=== PATIENT | female | born 1945 | race Caucasian/White ===

== ENCOUNTER 2020-04-27 11:15 | Outpatient (RCR) | payer MEDICARE, OTHER, SELFPAY | END 2020-06-14 16:27 | disposition home or self-care (01) | LOC: HO.WCC 11:15 | PROVIDERS: Visit Provider Surgery | DX: S81.811A Laceration without foreign body, right lower leg, initial encounter (principal); Z79.2 Long term (current) use of antibiotics | CPT/HCPCS: 11042; 17250; 97597; 99212 ==

== ENCOUNTER 2020-08-07 21:11 | Inpatient (IN) | payer MEDICARE, OTHER, SELFPAY ==
[2020-08-08] VITALS (12 sets, daily range): BP systolic 118–140; BP diastolic 59–78; PULSE 77–98; RESP 15–24; TEMP 36.2–37.1; O2SAT 95–99; BMI 19.0
--- NOTE | 2020-08-08 00:09 | XR_ITS ---
EXAMINATION: XR CHEST CLINICAL INFORMATION: Edema COMPARISON: Chest x-ray 12/31/2019, 12/15/2018 TECHNIQUE: Frontal portable view of the chest was obtained. 12:41 AM FINDINGS: Heart size is normal. Cardiac and mediastinal contours are normal. There are calcifications of aorta. There is chronic mild prominent of interstitial lung markings unchanged since prior chest x-ray. No focal dense consolidation. There is no pleural effusion. There is no pneumothorax. Multilevel degenerative spondylosis spine. There is degenerative changes of both glenohumeral joints. There are surgical clips in the right upper quadrant of the abdomen. XR/XR chest 1V IMPRESSION: No acute abnormality of chest. Chronic mild prominent interstitial lung markings unchanged since prior studies.
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
[2020-08-08 00:42] LABS: Basophils Percent Auto 0.8 % (0-2); Eosinophils Absolute Auto 0.1 X10*3/uL (0.0-0.4); Eosinophils Percent Auto 1.2 % (0-4); Hematocrit 34.3 % (37-47); Hemoglobin 10.9 g/dl (12.0-16.0); Imm Gran Abs Auto 0.04 X10*3/uL (0.00-0.03); Imm Gran Pct Auto 0.8 % (0.0-0.4); Lymphocytes Absolute Auto 0.8 X10*3/uL (1.2-4.9); Lymphocytes Percent Auto 15.3 % (20-40); MANUAL DIFF FLAG NO; Mean Corpuscular HGB Conc 31.8 g/dl (31.0-35.0); Mean Corpuscular Hemoglobin 29.9 pg (27.0-33.0); Mean Platelet Volume 9.5 fL (9.4-12.3); Monocytes Absolute Auto 0.3 X10*3/uL (0.1-1.2); Neutrophils Absolute Auto 3.8 X10*3/uL (2.0-8.3); Neutrophils Percent Auto 75.9 % (45-73); Platelet Count 177 X10*3/uL (160-400); Red Blood Count 3.65 X10*6/uL (4.20-5.50); Red Cell Distribution Width 15.5 % (11.0-16.0)
[2020-08-08 00:44] LABS: Glucose Urine UA NEG (NEG); Leukocyte Esterase Urine NEG (NEG); Nitrite Urine NEG (NEG); PH 5.5 (5.0-8.0); Specific Gravity - Urine 1.025 (1.005-1.025); Urine Blood NEG (NEG); Urine Ketones NEG (NEG); Urine Protein 2+ MG/DL (NEG-TRACE)
[2020-08-08 00:45] LABS: Appearance Urine HAZY; Color Urine AMBER
[2020-08-08 00:51] LABS: Bacteria Urine TRACE /LPF; Mucus Urine TRACE /LPF; RBC Urine 0-2 /HPF (0); Squamous Epithelial Cell Urine 3+ /LPF; WBC Urine 0-2 /HPF (0-4)
[2020-08-08 01:09] LABS: Anion Gap 12 (12-20); Blood Urea Nitrogen 15 mg/dL (9-16); Calcium 7.4 mg/dL (8.4-10.2); Carbon Dioxide 25 mmol/L (22-29); Chloride 97 mmol/L (96-108); Creatinine Clr Calc Pharmacy 60.3; Estimated Glomerular Filt Rate > 60; Glucose Random 113 mg/dL (60-115); Potassium 4.2 mmol/l (3.3-5.1); Sodium 130 mmol/L (135-145)
[2020-08-08 01:14] LABS: B Type Natriuretic Peptide 74 pg/mL (<100)
[2020-08-08] MEDS: oxyCODONE HCl Immed Release 5 MG TABLET PO ×2 (07:46→15:56)
[2020-08-08] MEDS: Furosemide 20 MG TABLET PO (07:46)
[2020-08-08] MEDS: cephALEXin 500 MG CAPSULE PO (08:03)
[2020-08-08] MEDS: amLODIPine Besylate 2.5 MG TABLET PO (08:03)
[2020-08-08 09:02] LABS: Anion Gap 9 (12-20); Blood Urea Nitrogen 12 mg/dL (9-16); Carbon Dioxide 27 mmol/L (22-29); Chloride 97 mmol/L (96-108); Creatinine Clr Calc Pharmacy 62.4; Estimated Glomerular Filt Rate > 60; Glucose Random 119 mg/dL (60-115); Potassium 3.9 mmol/l (3.3-5.1); Sodium 129 mmol/L (135-145)
[2020-08-08] MEDS: Acetaminophen 325 MG TABLET 650 MG PO (12:23)
--- NOTE | 2020-08-08 12:51 | MHC.CM.ED ---
Received case management consult. Patient came to the ER with leg swelling. Physical therapy eval completed. Rehab is recommended. Met with patient in regards to d/c planning. Patient lives with her , ambulates with a walker and had no services prior to coming to the ER. PCP verified. Patient has been to [facility] in the past. Referral made via [email or web address]. They are unable to offer a bed today. Patient agreeable to referrals to [facility] is willing to offer a bed if covid is negative. Covid is pending. Continue to monitor for d/c needs.
[2020-08-08 12:55] LABS: COVID-19 Test Negative (Negative); IDNOW Serial# 9DD0AD1C
--- NOTE | 2020-08-08 14:26 | MHC.CM.ED ---
[facility] is able to offer a bed. [facility] booked for 4pm. Patient made aware. Patient requested t/w speak to patient's John. Spoke with Bill via telephone. Bill is concerned about patient going to rehab if there is no explanation for why patient's legs are swelling. Patient was seen by PCP's RN CHARGE a couple of weeks ago. RN CHARGE felt patient had cellulitis. However, patient was afebrile and had no signs of cellulitis. Patient was seen by [facility] in May. T/W requested copy of progress note from that time. Bill's concerns have been discussed with Laurita GUDINO. Continue to monitor for d/c needs.
[2020-08-08 15:05] LABS: Osmolality, Serum 267 mosm/kg (281-305)
--- NOTE | 2020-08-08 15:29 | MHC.CM.ED ---
Received notification from Laurita GUDINO that patient will be admitted for hyponatremia. [facility] made aware and asked to follow patient. Patient and Bill made aware. Continue to monitor for d/c needs.
--- NOTE | 2020-08-08 16:26 | PM.EVENT ---
Event Note Date of Service: 08/08/20 Event Note: Patient seen and examined independently and was present during taveras portion of E/M service. Agree with midlevel's history, physical, assessment, and plan. 75-year-old female presented with progressive lower extremity edema Lower extremity edema Differential includes rheumatoid flare, proteinuria, lymphedema Empiric prednisone Check inflammatory markers Outpatient Rheumatology follow-up Check serum albumin
[2020-08-08 16:30] LABS: Sodium 130 mmol/L (135-145)
[2020-08-08] MEDS: predniSONE 20 MG TABLET 40 MG PO (18:18)
[2020-08-08] MEDS: Heparin Sodium,Porcine 5,000 UNIT/ML VIAL 5000 UNIT SUBCUT (18:18)
[2020-08-08 18:19] LABS: Alanine Aminotransferase 19 U/L (0-31); Albumin Level 1.9 g/dL (3.5-5.0); Alkaline Phosphatase 261 U/L (39-117); Aspartate Amino Transferase 31 U/L (5-31); Bilirubin Direct 0.2 mg/dL (0.0-0.5); Bilirubin Total 0.2 mg/dL (0.0-1.0); C Reactive Protein 11.69 mg/dL (< or = 0.50); Total Protein 4.9 g/dL (6.5-8.0)
[2020-08-08 18:21] LABS: Potassium Urine Random 14.1 mmol/l
[2020-08-08 18:25] LABS: Creatinine Urine 10.71 mg/dL
[2020-08-08 18:26] LABS: Osmolality Urine 176 mosm/kg (373-1093)
[2020-08-08 18:57] LABS: Uric Acid Urine Random 6.9 mg/dL
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
[2020-08-08] MEDS: Albumin Human 25 % 50 ML 100 ML IV (20:39)
[2020-08-09] MEDS: 0.9 % Sodium Chloride Flush 3 ML SYRINGE IVFLUSH ×4 (00:35→09:50)
[2020-08-09 03:27] VITALS: BP 145/68; PULSE 78; RESP 19; TEMP 36.4; O2SAT 95
[2020-08-09] MEDS: Heparin Sodium,Porcine 5,000 UNIT/ML VIAL 5000 UNIT SUBCUT (06:25)
[2020-08-09 06:58] LABS: Cholesterol 88 mg/dL; HDL Cholesterol 13 mg/dL; LDL Cholesterol Calculated 56 mg/dl; Triglycerides 97 mg/dL
[2020-08-09 07:21] VITALS: BP 128/59; PULSE 62; RESP 17; TEMP 36.4; O2SAT 95
--- NOTE | 2020-08-09 09:26 | MHC.CM.PN ---
IMM 08/09/20, PT S/P LEG SWELLING AND HYPONATREMIA, DISCHARGE PLAN TO [facility] VIA BLS TRANSPORT, CM MET WITH PT WHO IS ALERT AND ORIENTED, PT REPORTS SHE WAS COMPLETELY INDEPENDENT AT HOME, PT DENIES HOME SERVICES AND REPORTS SHE USES A FRONT WHEELED WALKER AT HOME, PT DOES REPORT SHE HAS A WHEEL CHAIR USED FOR OUTINGS. PT AWARE OF DISCHARGE PLAN TO [facility] AND IS AGREEABLE, PT REQUESTS CM CALL AND LET HIM KNOW, CM WILL DO SO AFTER MULTIDISCIPLINARY ROUNDS, CM WILL ALSO UPDATE [facility]. /HCP: AUG[place]O [phone] PCP: DR ANGELICA REDDY RHEUMATOLOGY: [facility] [place], PT WILL NEED FOLLOW UP AFTER D/C
[2020-08-09] MEDS: oxyCODONE HCl Immed Release 5 MG TABLET PO (09:48)
[2020-08-09 09:49] VITALS: BP 121/56; PULSE 71
[2020-08-09] MEDS: predniSONE 20 MG TABLET 40 MG PO (09:49)
[2020-08-09] MEDS: amLODIPine Besylate 2.5 MG TABLET PO (09:49)
--- NOTE | 2020-08-09 10:22 | HO.PM.IMPN ---
Subjective Subjective Date of Service: 08/09/20 Interval History: edema much improved... still with pain Cardiovascular Cardiovascular: Reports no additional cardiovascular complaints Gastrointestinal Gastrointestinal: Reports no additional gastrointestinal complaints Physical Exam Vital Signs: Vital Signs: Last Vital Signs Temp 97.6 F 08/09/20 07:21 Pulse 71 08/09/20 09:49 Resp 17 08/09/20 07:21 BP 121/56 L 08/09/20 09:49 Pulse Ox 95 08/09/20 07:21 Body Mass Index 19.0 General: AO X 3, no acute distress Resp: CTA bilateral CVS: S1,S2,RRR GI: soft, non tender, non distended Neuro: motor grossly intact Psych: appropriate affect MSK: rheumatoid deformities, decreased swelling le Objective Data Current Medications Generic Name Dose Route Start Last Admin Trade Name Freq PRN Reason Stop Dose Admin Acetaminophen 650 mg 08/08/20 17:16 Acetaminophen 325 Mg Tablet PO Q6H PRN Pain, Mild (Pain Scale 1-3) Acetaminophen 650 mg 08/08/20 19:18 Acetaminophen Supp 650 Mg Supp.Rect IL Q6H PRN Pain, Mild (Pain Scale 1-3) Amlodipine Besylate 2.5 mg 08/08/20 09:00 08/09/20 09:49 Amlodipine Besylate 2.5 Mg Tablet PO 2.5 mg DAILY RICHARD Administration Protocol Heparin Sodium (Porcine) 5,000 unit 08/08/20 17:16 08/09/20 06:25 Heparin Sodium,Porcine 5,000 Unit/Ml Vial SUBCUT 5,000 unit Q12H RICHARD Administration Ondansetron HCl 4 mg 08/08/20 17:16 Ondansetron Hcl 4 Mg/2 Ml Vial IVPUSH Q8H PRN Nausea and Vomiting Ondansetron HCl 4 mg 08/08/20 19:18 Ondansetron Hcl 4 Mg/2 Ml Vial IVPUSH Q8H PRN Nausea and Vomiting Oxycodone HCl 5 mg 08/08/20 07:13 08/09/20 09:48 Oxycodone Hcl Immed Release 5 Mg Tablet PO 5 mg Q6H PRN Administration Pain, Moderate (Pain Scale 4-6 Prednisone 40 mg 08/08/20 18:05 08/09/20 09:49 Prednisone 20 Mg Tablet PO 40 mg DAILY RICHARD Administration Sodium Chloride 3 ml 08/09/20 00:00 08/09/20 00:37 0.9 % Sodium Chloride Flush 3 Ml Syringe IVFLUSH 3 ml QSHIFT RICHARD Administration Sodium Chloride 3 ml 08/09/20 00:00 08/09/20 09:50 0.9 % Sodium Chloride Flush 3 Ml Syringe IVFLUSH 3 ml QSHIFT RICHARD Administration Labs CBC & Chem 7: 08/08/20 00:37 08/08/20 16:01 Assessment and Plan (1) Rheumatoid arthritis: Status: Acute (2) Edema of both lower extremities: Status: Acute (3) Proteinuria: Status: Acute Assessment and Plan: 75F presented with le edema lower extremity edema likely inflammatory related to RA flare improving with prednisone, continue for now, PT, outpatient rheumatology follow up proteinuria ? due to RA related nephropathy inpatient vs outpaitne renal follow up htn amlodipine
[2020-08-09 10:41] LABS: INTERNATIONAL NORM RATIO 1.1 (0.9-1.1); Prothrombin Time 12.7 SEC (10.8-13.0)
--- NOTE | 2020-08-09 10:49 | P.DS_ITS ---
DS: Providers Provider Date of Service: 08/09/20 Date of admission: 08/08/20 17:16 Primary care physician: Lashaun Deluca MD DS: Diagnosis Discharge Diagnosis (1) Rheumatoid arthritis: Status: Acute (2) Edema of both lower extremities: Status: Acute (3) Proteinuria: Status: Acute DS: Medications Discharge Medications Home Medications: Home Medications Medication Instructions Recorded Confirmed amlodipine 1 tab PO DAILY 08/08/20 08/08/20 Previous Rx's Medication Instructions Recorded prednisone 40 mg PO DAILY #10 tab 08/09/20 DS: Summary Hospital Course Hospital Course: patient was admitted for lower extremity edema, found to have proteinuria. appears to have been inflammatory, likely rheumatoid arthritis flared. seems to have responded to prednisone, edema and pain much improved. will continue prednisone for 5 more days, should follow up with rheumatology for further management. should also follow up with nephrology for work up of proteinuria. pateint will be discharged to SNF Time Spent with Patient Time attestation: Total time spent providing and/or coordinating discharge services: Discharge coordination time: Greater than 30 minutes Physical Exam Vital Signs: Vital Signs: Last Vital Signs Temp 97.6 F 08/09/20 07:21 Pulse 71 08/09/20 09:49 Resp 17 08/09/20 07:21 BP 121/56 L 08/09/20 09:49 Pulse Ox 95 08/09/20 07:21 Body Mass Index 19.0 General: AO X 3, no acute distress Resp: CTA bilateral CVS: S1,S2,RRR GI: soft, non tender, non distended Neuro: motor grossly intact Psych: appropriate affect MSK: rheumaroid arthritis deformities, lower extremity edema much improved DS: Data Data Completed and Pending Labs on day of discharge: Laboratory Tests 08/08/20 08/08/20 08/08/20 00:36 00:36 00:37 WBC 5.0 RBC 3.65 L Hgb 10.9 L Hct 34.3 L MCV 94.0 MCH 29.9 MCHC 31.8 RDW 15.5 Plt Count 177 MPV 9.5 Immature Gran % (Auto) 0.8 H Neut % (Auto) 75.9 H Lymph % (Auto) 15.3 L [place] % (Auto) 6.0 Eos % (Auto) 1.2 Baso % (Auto) 0.8 Lymph # (Auto) 0.8 L [place] # (Auto) 0.3 Eos # (Auto) 0.1 Baso # (Auto) 0.0 Abs Immat Gran (auto) 0.04 H Absolute Neuts (auto) 3.8 Absolute Nucleated RBC 0.000 Nucleated RBC % (auto) 0.0 ESR PT INR Sodium Potassium Chloride Carbon Dioxide Anion Gap BUN Creatinine Estim Creat Clear Calc Estimated GFR Random Glucose Osmolality Calcium Total Bilirubin Direct Bilirubin AST ALT Alkaline Phosphatase C-Reactive Protein B-Natriuretic Peptide 74 Total Protein Albumin Triglycerides Cholesterol LDL Cholesterol, Calc HDL Cholesterol Urine Color DOC Urine Appearance HAZY Urine pH 5.5 Ur Specific [place] 1.025 Urine Protein 2+ H Urine Glucose (UA) NEG Urine Ketones NEG Urine Blood NEG Urine Nitrite NEG Ur Leukocyte Esterase NEG Urine RBC 0-2 Urine WBC 0-2 Ur Squamous Epith Cells 3+ Urine Bacteria TRACE Urine Mucus TRACE Urine Osmolality Ur Random Sodium Ur Random Potassium Ur Random Chloride Ur Random Uric Acid Urine Creatinine COVID-19 ([facility]) COVID-19 Clin Com 08/08/20 08/08/20 08/08/20 00:37 00:37 08:29 WBC RBC Hgb Hct MCV MCH MCHC RDW Plt Count MPV Immature Gran % (Auto) Neut % (Auto) Lymph % (Auto) [place] % (Auto) Eos % (Auto) Baso % (Auto) Lymph # (Auto) [place] # (Auto) Eos # (Auto) Baso # (Auto) Abs Immat Gran (auto) Absolute Neuts (auto) Absolute Nucleated RBC Nucleated RBC % (auto) ESR Cancelled PT INR Sodium 130 L 129 L Potassium 4.2 3.9 Chloride 97 97 Carbon Dioxide 25 27 Anion Gap 12 9 L BUN 15 12 Creatinine 0.58 0.56 Estim Creat Clear Calc 60.3 62.4 Estimated GFR > 60 > 60 Random Glucose 113 119 H Osmolality Calcium 7.4 L 7.0 L Total Bilirubin 0.2 Direct Bilirubin 0.2 AST 31 ALT 19 Alkaline Phosphatase 261 H C-Reactive Protein 11.69 H B-Natriuretic Peptide Total Protein 4.9 L Albumin 1.9 L Triglycerides Cholesterol LDL Cholesterol, Calc HDL Cholesterol Urine Color Urine Appearance Urine pH Ur Specific [place] Urine Protein Urine Glucose (UA) Urine Ketones Urine Blood Urine Nitrite Ur Leukocyte Esterase Urine RBC Urine WBC Ur Squamous Epith Cells Urine Bacteria Urine Mucus Urine Osmolality Ur Random Sodium Ur Random Potassium Ur Random Chloride Ur Random Uric Acid Urine Creatinine COVID-19 ([facility]IREE) COVID-19 [employer] Com 08/08/20 08/08/20 08/08/20 08:29 12:27 16:01 WBC RBC Hgb Hct MCV MCH MCHC RDW Plt Count MPV Immature Gran % (Auto) Neut % (Auto) Lymph % (Auto) [place] % (Auto) Eos % (Auto) Baso % (Auto) Lymph # (Auto) [place] # (Auto) Eos # (Auto) Baso # (Auto) Abs Immat Gran (auto) Absolute Neuts (auto) Absolute Nucleated RBC Nucleated RBC % (auto) ESR PT INR Sodium 130 L Potassium Chloride Carbon Dioxide Anion Gap BUN Creatinine Estim Creat Clear Calc Estimated GFR Random Glucose Osmolality 267 L Calcium Total Bilirubin Direct Bilirubin AST ALT Alkaline Phosphatase C-Reactive Protein B-Natriuretic Peptide Total Protein Albumin Triglycerides Cholesterol LDL Cholesterol, Calc HDL Cholesterol Urine Color Urine Appearance Urine pH Ur Specific [place] Urine Protein Urine Glucose (UA) Urine Ketones Urine Blood Urine Nitrite Ur Leukocyte Esterase Urine RBC Urine WBC Ur Squamous Epith Cells Urine Bacteria Urine Mucus Urine Osmolality Ur Random Sodium Ur Random Potassium Ur Random Chloride Ur Random Uric Acid Urine Creatinine COVID-19 ([facility]IREE) Negative COVID-19 [employer] Com See Note 08/08/20 08/08/20 08/08/20 17:25 17:25 17:25 WBC RBC Hgb Hct MCV MCH MCHC RDW Plt Count MPV Immature Gran % (Auto) Neut % (Auto) Lymph % (Auto) [place] % (Auto) Eos % (Auto) Baso % (Auto) Lymph # (Auto) [place] # (Auto) Eos # (Auto) Baso # (Auto) Abs Immat Gran (auto) Absolute Neuts (auto) Absolute Nucleated RBC Nucleated RBC % (auto) ESR PT INR Sodium Potassium Chloride Carbon Dioxide Anion Gap BUN Creatinine Estim Creat Clear Calc Estimated GFR Random Glucose Osmolality Calcium Total Bilirubin Direct Bilirubin AST ALT Alkaline Phosphatase C-Reactive Protein B-Natriuretic Peptide Total Protein Albumin Triglycerides Cholesterol LDL Cholesterol, Calc HDL Cholesterol Urine Color Urine Appearance Urine pH Ur Specific [place] Urine Protein Urine Glucose (UA) Urine Ketones Urine Blood Urine Nitrite Ur Leukocyte Esterase Urine RBC Urine WBC Ur Squamous Epith Cells Urine Bacteria Urine Mucus Urine Osmolality 176 L Ur Random Sodium 38.0 Ur Random Potassium 14.1 Ur Random Chloride 46.0 Ur Random Uric Acid Urine Creatinine 10.71 COVID-19 ([facility]IREE) COVID-19 [employer] 08/08/20 08/09/20 08/09/20 17:25 05:40 06:00 WBC RBC Hgb Hct MCV MCH MCHC RDW Plt Count MPV Immature Gran % (Auto) Neut % (Auto) Lymph % (Auto) [place] % (Auto) Eos % (Auto) Baso % (Auto) Lymph # (Auto) [place] # (Auto) Eos # (Auto) Baso # (Auto) Abs Immat Gran (auto) Absolute Neuts (auto) Absolute Nucleated RBC Nucleated RBC % (auto) ESR PT 12.0 INR 1.0 Sodium Potassium Chloride Carbon Dioxide Anion Gap BUN Creatinine Estim Creat Clear Calc Estimated GFR Random Glucose Osmolality Calcium Total Bilirubin Direct Bilirubin AST ALT Alkaline Phosphatase C-Reactive Protein B-Natriuretic Peptide Total Protein Albumin Triglycerides 97 Cholesterol 88 LDL Cholesterol, Calc 56 HDL Cholesterol 13 Urine Color Urine Appearance Urine pH Ur Specific [place] Urine Protein Urine Glucose (UA) Urine Ketones Urine Blood Urine Nitrite Ur Leukocyte Esterase Urine RBC Urine WBC Ur Squamous Epith Cells Urine Bacteria Urine Mucus Urine Osmolality Ur Random Sodium Ur Random Potassium Ur Random Chloride Ur Random Uric Acid 6.9 Urine Creatinine COVID-19 ([facility]IREE) COVID-19 [employer] Com 08/09/20 10:31 WBC RBC Hgb Hct MCV MCH MCHC RDW Plt Count MPV Immature Gran % (Auto) Neut % (Auto) Lymph % (Auto) [place] % (Auto) Eos % (Auto) Baso % (Auto) Lymph # (Auto) [place] # (Auto) Eos # (Auto) Baso # (Auto) Abs Immat Gran (auto) Absolute Neuts (auto) Absolute Nucleated RBC Nucleated RBC % (auto) ESR PT 12.7 INR 1.1 Sodium Potassium Chloride Carbon Dioxide Anion Gap BUN Creatinine Estim Creat Clear Calc Estimated GFR Random Glucose Osmolality Calcium Total Bilirubin Direct Bilirubin AST ALT Alkaline Phosphatase C-Reactive Protein B-Natriuretic Peptide Total Protein Albumin Triglycerides Cholesterol LDL Cholesterol, Calc HDL Cholesterol Urine Color Urine Appearance Urine pH Ur Specific [place] Urine Protein Urine Glucose (UA) Urine Ketones Urine Blood Urine Nitrite Ur Leukocyte Esterase Urine RBC Urine WBC Ur Squamous Epith Cells Urine Bacteria Urine Mucus Urine Osmolality Ur Random Sodium Ur Random Potassium Ur Random Chloride Ur Random Uric Acid Urine Creatinine COVID-19 ([facility]IREE) COVID-19 [employer] Com Discharge Plan Discharge Patient Disposition: Xfer SNF Referrals: Carley Mathews MD [Physician] - 1 Week (RA) Lashaun Colon MD [Primary Care Provider] - Jay Sheikh MD [Physician] - 2 Weeks (proteinuria, history of RA) Discharge Medications: New prednisone 20 mg tablet 40 mg PO DAILY Qty: 10 RF: 0 Continued amlodipine 2.5 mg tablet 1 tab PO DAILY RF: 0 Discontinued cephalexin 500 mg capsule 1 cap PO BID RF: 0 Discharge Orders: Discharge Order (Routine); Ordered 08/09/20 Ordered By: Pérez Alejandro Activity on Discharge: As tolerated Visit Report Forms: Patient Portal Discharge page Care Plan Goals: recovery Health Concerns: rheumatoid arthritis, proteinuria Plan of Treatment: short course of prednisone, then follow up with rheumatology for maintance therapy. follow up nephro for proteinuria
[2020-08-09 11:02] VITALS: BP 129/62; PULSE 68; RESP 15; TEMP 36.4; O2SAT 95
--- NOTE | 2020-08-09 13:38 | MHC.CM.PN ---
Addendum entered by Shakila Bower RN 08/09/20 13:40: PER /HCP PT HAS AN APPT WITH DR. MILLER AT THE [facility] [place] ON 08/16/20 AT 2:30PM, CM DID NOTIFY [facility] OF APPOINTMENT. Original Note: PT DISCHARGING TO [facility] WITH BLS TRANSPORT [facility]IA [facility]. /CHP [place] UPDATED ON PT'S STATUS AND 4PM TRANSFER TIME.
[2020-08-09 14:16] LABS: Glucose Urine UA NEG (NEG); Leukocyte Esterase Urine NEG (NEG); Nitrite Urine NEG (NEG); PH 6.5 (5.0-8.0); Urine Blood NEG (NEG); Urine Ketones NEG (NEG); Urine Protein NEG (NEG-TRACE)
[2020-08-09 14:21] LABS: Appearance Urine CLEAR; Color Urine YELLOW
[2020-08-09 15:12] VITALS: BP 140/64; PULSE 69; RESP 16; TEMP 36.7; O2SAT 96
[2020-08-09 18:42] LABS: Urea, Random Urine 160 mg/dL
[2020-08-09 21:44] LABS: Creatinine Urine 52.26 mg/dL; Total Protein Urine Random 40 mg/dL (<12)
[2020-08-10 15:02] LABS: Prot Elec - Albumin 1.7 g/dL (3.8-4.8); Prot Elec - Alpha1 0.4 g/dL (0.2-0.3); Prot Elec - Alpha2 0.6 g/dL (0.5-0.9); Prot Elec - Beta 1 0.3 g/dL (0.4-0.6); Prot Elec - Beta 2 0.4 g/dL (0.2-0.5); Prot Elec - Gamma 1.5 g/dL (0.8-1.7); Prot Elec - Total Protein 4.9 g/dL (6.1-8.1)
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
== END 2020-08-09 17:20 | disposition skilled nursing facility (03) | DRG 546 ==
LOC: HO.ED 23:59 → HO.EDOVER 08-08 17:30 → HO.S3 08-08 18:52
PROVIDERS: Internal Medicine Hypertension Specialist; Nurse Practitioner Acute Care; Physician Assistant; Admitting Provider Internal Medicine; Emergency Provider Emergency Medicine; PCP Internal Medicine; Visit Provider Internal Medicine
DX: M06.9 Rheumatoid arthritis, unspecified (principal); E87.1 Hypo-osmolality and hyponatremia; I10 Essential (primary) hypertension; N05.8 Unspecified nephritic syndrome with other morphologic changes; E86.0 Dehydration; R29.6 Repeated falls; Z91.81 History of falling; Z20.822 Contact with and (suspected) exposure to COVID-19; Z79.899 Other long term (current) drug therapy
CPT/HCPCS: 36415; 71045; 80048; 80061; 80076; 81001; 81003; 82436; 83880; 83930; 83935; 84133; 84155; 84156; 84165; 84295; 84300; 84540; 84560; 85025; 85610; 86140; 87635; 97162; 99285; P9047

== ENCOUNTER 2021-01-03 06:52 | Outpatient (REF) | payer SELFPAY ==
[2021-01-03 07:02] LABS: Hemoglobin 8.1 g/dl (12.0-16.0); Mean Corpuscular HGB Conc 31.2 g/dl (31.0-35.0); Mean Corpuscular Hemoglobin 30.2 pg (27.0-33.0); Mean Platelet Volume 9.7 fL (9.4-12.3); Platelet Count 250 X10*3/uL (160-400); Red Blood Count 2.68 X10*6/uL (4.20-5.50); Red Cell Distribution Width 18.7 % (11.0-16.0); White Blood Count 2.7 X10*3/uL (4.8-10.8)
[2021-01-03 07:59] LABS: Alanine Aminotransferase 12 U/L (0-31); Albumin Level 2.3 g/dL (3.5-5.0); Alkaline Phosphatase 86 U/L (39-117); Anion Gap 9 (12-20); Aspartate Amino Transferase 24 U/L (5-31); Bilirubin Total 0.3 mg/dL (0.0-1.0); Blood Urea Nitrogen 16 mg/dL (9-16); Calcium 7.9 mg/dL (8.4-10.2); Carbon Dioxide 26 mmol/L (22-29); Chloride 105 mmol/L (96-108); Estimated Glomerular Filt Rate > 60; Glucose Random 132 mg/dL (60-115); Potassium 4.2 mmol/L (3.3-5.1); Sodium 136 mmol/L (135-145); Total Protein 6.2 g/dL (6.5-8.0)
== END 2021-01-03 06:53 | disposition home or self-care (01) ==
LOC: HO.MMNH1L 06:52
PROVIDERS: Visit Provider Family Medicine
DX: I10 Essential (primary) hypertension (principal); Z86.73 Personal history of transient ischemic attack (TIA), and cerebral infarction without residual deficits
CPT/HCPCS: 36415; 80053; 85027

== ENCOUNTER 2021-02-20 21:16 | Outpatient (REF) | payer OTHER, SELFPAY | END 2021-02-20 21:17 | disposition home or self-care (01) | LOC: HO.MMNH1L 21:16 | PROVIDERS: Visit Provider Family Medicine | DX: Z13.89 Encounter for screening for other disorder (principal) ==

== ENCOUNTER 2021-02-21 12:53 | Outpatient (RCR) | payer MEDICARE, OTHER, SELFPAY | END 2021-03-16 10:48 | disposition home or self-care (01) | LOC: HO.WCC 12:53 | PROVIDERS: PCP Internal Medicine; Visit Provider Physician Assistant | DX: S51.811D Laceration without foreign body of right forearm, subsequent encounter (principal); S51.812D Laceration without foreign body of left forearm, subsequent encounter; S51.011D Laceration without foreign body of right elbow, subsequent encounter; I69.351 Hemiplegia and hemiparesis following cerebral infarction affecting right dominant side; I10 Essential (primary) hypertension | CPT/HCPCS: 99213 ==

== ENCOUNTER 2021-02-27 00:14 | Outpatient (REF) | payer MEDICARE, OTHER, SELFPAY | END 2021-02-27 00:15 | disposition home or self-care (01) | LOC: HO.MMNH1L 00:14 | PROVIDERS: Visit Provider Family Medicine | DX: Z13.89 Encounter for screening for other disorder (principal) ==

== ENCOUNTER 2021-05-09 17:42 | Inpatient (IN) | payer MEDICARE, OTHER, SELFPAY ==
--- NOTE | 2021-05-09 | ECG_ITS ---
Test Reason : abd pain Blood Pressure : / mmHG Vent. Rate : 078 BPM Atrial Rate : 078 BPM P-R Int : 116 ms QRS Dur : 078 ms QT Int : 360 ms P-R-T Axes : -01 -27 031 degrees QTc Int : 410 ms Normal sinus rhythm Minimal voltage criteria for LVH, may be normal variant ( Evan product ) Borderline ECG No significant changes seen Referred By: Generic ED Physician Electronically Signed By:YESENIA DAILY MD
--- NOTE | ~2021-05-09 | CT_ITS ---
EXAMINATION: CT ABDOMEN AND PELVIS WITHOUT CONTRAST CLINICAL INFORMATION: Abdominal pain. COMPARISON: CT abdomen pelvis 05/09/2021 TECHNIQUE: Multidetector volumetric imaging was performed from the superior aspect of the liver through the pubic symphysis. Sagittal and coronal reformatted images were obtained on the technologist's workstation. This CT examination was performed using dose optimization techniques as appropriate, variously including the following: *Automated exposure control *Adjustment of mA and/or kV according to patient size (this includes techniques or standardized protocols for targeted exams where dose is matched to indication/reason for exam; i.e. extremities or head) *Use of iterative reconstruction technique DLP: 249 mGy-cm FINDINGS: LUNG BASES: There is a left basilar patchy opacity question developing infiltrate. The right lung base is clear. Heart size is normal. LIVER, GALLBLADDER, AND BILIARY TREE: The liver is normal in size, shape, and attenuation. No focal hepatic lesion or biliary ductal dilatation is present. The gallbladder has been surgically removed. PANCREAS: Unremarkable. SPLEEN: Unremarkable. ADRENAL GLANDS: Unremarkable. KIDNEYS AND URETERS: The kidneys are normal in size, shape, and attenuation. No hydronephrosis, hydroureter, or calculi seen. No perinephric stranding. There are small vascular calcifications at the right renal hilum. BLADDER: Unremarkable. GASTROINTESTINAL TRACT: There is a large amount of stool seen throughout the colon without significant distention. The small bowel loops are normal caliber. The stomach is partially distended recent ingestion of food. No air-fluid levels or free air seen. There is no free fluid. Scattered diverticuli seen and sigmoid colon. ABDOMINAL WALL: No significant hernia is appreciated. LYMPH NODES: Normal. VASCULAR: There is severe atherosclerosis and ectasia of abdominal aorta but no aneurysmal dilatation. The infrarenal IVC filter. PELVIC VISCERA: The uterus is retroverted. No hernia or free fluid seen. OSSEOUS STRUCTURES: There is a left intramedullary femoral bronwyn and hip nail for an old healed fracture, stable. There are multiple lung compression deformities from osteopenia involving the lumbar vertebrae and lower dorsal vertebrae. CT/CT abdomen pelvis wo con IMPRESSION: Severe constipation. Colonic diverticulosis without diverticulitis. Infrarenal IVC filter is with the legs extending into the disc space as described before. Cholecystectomy, retroverted uterus and left hip intramedullary femoral bronwyn and nail are stable. Diffuse osteopenia with osteoporotic compression deformities and vacuum disc phenomena in all lumbar disc levels are noted.
--- NOTE | ~2021-05-09 | CT_ITS ---
EXAMINATION: CT ABDOMEN AND PELVIS WITH CONTRAST CLINICAL INFORMATION: Left lower quadrant pain COMPARISON: CT abdomen pelvis 01/05/2020 TECHNIQUE: Multidetector volumetric images were obtained from the superior aspect of the liver through the pubic symphysis following administration 85 mL of Omnipaque 350 intravenous contrast. Sagittal and coronal reformatted images were obtained on the technologist's workstation. Oral contrast: No This CT examination was performed using dose optimization techniques as appropriate, variously including the following: *Automated exposure control *Adjustment of mA and/or kV according to patient size (this includes techniques or standardized protocols for targeted exams where dose is matched to indication/reason for exam; i.e. extremities or head) *Use of iterative reconstruction technique DLP: 373 mGy-cm FINDINGS: LUNG BASES: The visualized lung bases are unremarkable. LIVER, GALLBLADDER, AND BILIARY TREE: The liver is normal in size, shape, and attenuation. No focal hepatic lesion or biliary ductal dilatation is present. Status post cholecystectomy with clips in the gallbladder fossa. Single surgical clip is also present in Morison's pouch. PANCREAS: Unremarkable. Pancreatic duct mildly prominent at 2.6 mm, unchanged. No definite pancreatic mass is seen. SPLEEN: Unremarkable. ADRENAL GLANDS: Unremarkable. KIDNEYS AND URETERS: The kidneys are normal in size, shape, and attenuation. No hydronephrosis, hydroureter, or calculi seen. No perinephric stranding. BLADDER: Unremarkable. GASTROINTESTINAL TRACT: Diverticular changes present in the colon without diverticulitis. The colon otherwise appears unremarkable. No definite small bowel dilatation is seen but some small bowel wall thickening is seen. The appendix is not identified. ABDOMINAL WALL: No significant hernia is appreciated. LYMPH NODES: Normal. VASCULAR: Marked tortuosity of the abdominal aorta and iliac vessels. Mild fusiform dilatation of the common iliac arteries. Marked calcific plaquing is present. A retrievable IVC filter is present just below the level of the renal veins. The legs are extraluminal with one extending into the L4-L5 disc space. There is reflux in the left gonadal vein with a small number of pelvic varices present. This is most likely secondary to not cracker compression of the left renal vein between the SMA and aorta. Of note, there appears to be in no short segment occlusion/stenosis/near occlusion involving the proximal SMA. There is reconstitution about 2.4 cm beyond its origin from the gastroduodenal collaterals. PELVIC VISCERA: Retroverted uterus appears to be present. An abnormal adnexal mass is not seen. No free intraperitoneal fluid is present. OSSEOUS STRUCTURES: There is marked osteopenia present with compression fractures involving nearly every vertebral body. No acute fractures are seen. A bronwyn and screw is present in the left hip. Old healed pelvic fractures are present. CT/CT abdomen pelvis w con IMPRESSION: 1. New SMA occlusion/critical stenosis. There is distal filling via gastroduodenal collaterals. Some mild small bowel thickening is present without pneumatosis or portal venous gas. 2. Other incidental findings include cholecystectomy, stable pancreatic duct dilatation, colonic diverticula without diverticulitis, retrievable IVC filter with legs extending outside of the IVC with one in the L4-L5 disc space, not cracker compression of left renal vein with retrograde flow in the ovarian vein and marked osteopenia with multiple compression fractures This critical result was discussed with Annika Marie NP at 12:15 AM on 05/10/2021 and it was ascertained that the content and urgency of the report was understood at the time of direct communication.
[2021-05-09 18:46] VITALS: BP 214/109; PULSE 88; RESP 17; TEMP 36.8; O2SAT 97; BMI 16.9
[2021-05-09 19:05] LABS: Hematocrit 33.7 % (37-47); Hemoglobin 10.6 g/dl (12.0-16.0); Mean Corpuscular HGB Conc 31.5 g/dl (31.0-35.0); Mean Corpuscular Hemoglobin 28.7 pg (27.0-33.0); Mean Corpuscular Volume 91.3 fL (80-98); Mean Platelet Volume 9.1 fL (9.4-12.3); Platelet Count 216 X10*3/uL (160-400); Red Blood Count 3.69 X10*6/uL (4.20-5.50); Red Cell Distribution Width 22.5 % (11.0-16.0)
[2021-05-09 19:06] LABS: WBC ABN SCTR FOR CBC 1
[2021-05-09 19:21] LABS: Alanine Aminotransferase 11 U/L (0-31); Albumin Level 3.2 g/dL (3.5-5.0); Alkaline Phosphatase 84 U/L (39-117); Anion Gap 12 (12-20); Aspartate Amino Transferase 18 U/L (5-31); Bilirubin Total 0.4 mg/dL (0.0-1.0); Blood Urea Nitrogen 12 mg/dL (9-16); Calcium 8.6 mg/dL (8.4-10.2); Carbon Dioxide 25 mmol/L (22-29); Chloride 102 mmol/L (96-108); Creatinine Clr Calc Pharmacy 48.1; Estimated Glomerular Filt Rate > 60; Glucose Random 104 mg/dL (60-115); Potassium 4.6 mmol/L (3.3-5.1); Sodium 134 mmol/L (135-145); Total Protein 7.8 g/dL (6.5-8.0)
[2021-05-09 19:51] LABS: Atypical Lymphs Percent Manual 3 % (0-6); Band Neutrophils Percent 0 % (3-5); Basophils Percent Manual 3 % (0-1); Eosinophils Percent Manual 2 % (0-4); Lymphocytes Percent Manual 75 % (20-40); Monocytes Percent Manual 16 % (2-11); Neutrophils Percent Manual 1 % (45-73)
[2021-05-09 19:58] LABS: RBC Morphology NOTED
[2021-05-09 20:06] LABS: Schistocytes 1+ (0-2) /OIF
[2021-05-09 20:07] LABS: Platelet Estimate NORMAL (NORMAL)
[2021-05-09 20:08] LABS: Platelet Morphology Comment NORMAL
[2021-05-09 20:10] LABS: Atypical Lymph Absolute Manual 0.1 x10*3/uL; Basophils Abs Manual 0.1 X10*3/uL (0.0-0.3); Eosinophils Absolute Manual 0.1 X10*3/UL (0.0-0.8); Lymphocytes Absolute Manual 2.3 X10*3/uL (0.6-4.8); Monocytes Absolute Manual 0.5 X10*3/uL (0.0-1.2); White Blood Count 3.1 X10*3/uL (4.8-10.8)
--- NOTE | 2021-05-09 22:31 | ED.ABDPAIN ---
HPI - Abdominal Pain General Chief Complaint: Abdominal Pain <Annika Marie NP - Last Filed: 05/10/21 01:40> Stated Complaint: abd pain <CHRIS Peters Last Filed: 05/10/21 01:40> Time Seen by Provider: 05/09/21 22:24 <CHRIS Peters Last Filed: 05/10/21 01:40> Source: patient <CHRIS Peters Last Filed: 05/10/21 01:40> Mode of arrival: ambulatory <CHRIS Peters Last Filed: 05/10/21 01:40> Limitations: no limitations <CHRIS Peters Last Filed: 05/10/21 01:40> History of Present Illness HPI narrative: 76-year-old female with a past medical history of rheumatoid arthritis, hypertension, GERD, CVA with right-sided deficits here with complaints of left-sided abdominal pain for 1 week.. No nausea, vomiting, diarrhea, urinary symptoms, fevers or chills. Last BM 2 days ago. On aspirin only. DNR/DNI per <CHRIS Peters Last Filed: 05/10/21 01:40> Related Data Home Medications: Home Medications Medication Instructions Recorded Confirmed aspirin 81 mg tablet,delayed 81 mg PO DAILY 03/07/21 03/07/21 release (Adult Low Dose Aspirin) atorvastatin 80 mg tablet 80 mg PO BEDTIME 03/07/21 03/07/21 mirtazapine 15 mg tablet 15 mg PO BEDTIME 03/07/21 03/07/21 Previous Rx's Medication Instructions Recorded amlodipine 2.5 mg tablet 2.5 mg PO DAILY 90 Days #90 tab 11/07/20 <CHRIS Peters Last Filed: 05/10/21 01:40> Allergies/Adverse Reactions: Allergies Allergy/AdvReac Type Severity Reaction Status Date / Time No Known Allergies Allergy Unknown Verified 03/07/21 13:27 [No Known Allergies*] <CHRIS Peters Last Filed: 05/10/21 01:40> Review of Systems Review of Systems Yes all other systems are reviewed and are negative <CHRIS Peters Last Filed: 05/10/21 01:40> Constitutional: Reports no additional constitutional complaints, Denies body ache(s), Denies chills, Denies fever(s), Denies headache(s) and Denies weakness <Annika Marie NP - Last Filed: 05/10/21 01:40> Eyes: Reports no additional eye complaints and Denies change in vision <Annika Marie NP - Last Filed: 05/10/21 01:40> Reports system reviewed and no additional complaints, except as documented, Denies dizziness, Denies headache(s), Denies nasal congestion, Denies nasal discharge and Denies neck pain <Annika Marie NP - Last Filed: 05/10/21 01:40> Cardiovascular: Reports no additional cardiovascular complaints, Denies chest pain, Denies leg edema and Denies dyspnea <Annika Marie NP - Last Filed: 05/10/21 01:40> Respiratory: Reports no additional respiratory complaints, Denies cough and Denies dyspnea <Annika Marie NP - Last Filed: 05/10/21 01:40> Gastrointestinal: Reports no additional gastrointestinal complaints, Reports abdominal pain, Denies diarrhea, Denies nausea and Denies vomiting <Annika Marie NP - Last Filed: 05/10/21 01:40> Genitourinary: Reports no additional female genitourinary complaints and Denies urinary incontinence <Annika Marie NP - Last Filed: 05/10/21 01:40> Musculoskeletal: Reports no additional musculoskeletal complaints, Denies back pain, Denies arthralgias, Denies joint swelling, Denies neck pain, Denies numbness and Denies tingling <Annika Marie NP - Last Filed: 05/10/21 01:40> Skin/Breast: Reports system reviewed and no additional complaints, except as docu and Denies rash <Annika Marie NP - Last Filed: 05/10/21 01:40> Denies Abnormal speech present, Denies dizziness, Denies headache(s), Denies numbness, Denies tingling and Denies weakness <CHRIS Peters Last Filed: 05/10/21 01:40> Physical Exam Vital Signs: Vital Signs: Last Vital Signs Temp 97.8 F 05/09/21 22:43 Pulse 70 05/10/21 01:13 Resp 17 05/10/21 01:13 BP 156/80 H 05/10/21 01:13 Pulse Ox 100 05/10/21 01:13 Body Mass Index 16.9 <Annika Marie NP - Last Filed: 05/10/21 01:40> Vital Signs: Last Vital Signs Temp 97.8 F 05/09/21 22:43 Pulse 70 05/10/21 01:13 Resp 17 05/10/21 01:13 BP 156/80 H 05/10/21 01:13 Pulse Ox 100 05/10/21 01:13 Body Mass Index 16.9 <Angelica Christian MD - Last Filed: 05/10/21 06:11> Const: General: cooperative, healthy appearing, comfortable and no acute distress <Annika Marie NP - Last Filed: 05/10/21 01:40> Orientation/consciousness: patient oriented x3 <Annika Marie NP - Last Filed: 05/10/21 01:40> Limitations: no limitations <Annika Marie NP - Last Filed: 05/10/21 01:40> HENMT: Head: Yes normal to inspection <Annika Marie NP - Last Filed: 05/10/21 01:40> Ears: hearing grossly normal bilaterally <Annika Marie NP - Last Filed: 05/10/21 01:40> General nose exam: Normal external nose present <Annika Marie NP - Last Filed: 05/10/21 01:40> Face and sinus: Yes normal facial exam <Annika Marie NP - Last Filed: 05/10/21 01:40> Mouth: Normal oral and palatal mucosa present <Annika Marie NP - Last Filed: 05/10/21 01:40> Throat: Yes posterior oropharynx normal <Annika Marie NP - Last Filed: 05/10/21 01:40> Eyes: General: appearance normal, both eyes and all related structures <Annika Marie NP - Last Filed: 05/10/21 01:40> Pupils: Equal, round and reactive pupils present <Annika Marie NP - Last Filed: 05/10/21 01:40> Neck: Neck: Yes normal visual inspection <Annika Marie NP - Last Filed: 05/10/21 01:40> Chest: Chest palpation & inspection: normal inspection of the chest <Annika Marie NP - Last Filed: 05/10/21 01:40> Resp: Effort & Inspection: normal respiratory effort <Annika Marie NP - Last Filed: 05/10/21 01:40> Auscultation: clear to auscultation bilaterally <Annika Marie NP - Last Filed: 05/10/21 01:40> Cardio: Rate: regular rate <Annika Marie NP - Last Filed: 05/10/21 01:40> Rhythm: regular rhythm <Annika Marie NP - Last Filed: 05/10/21 01:40> Peripheral pulses: Peripheral pulses 2+ throughout <Annika Marie NP - Last Filed: 05/10/21 01:40> GI: Inspection: Yes normal to inspection <Annika Marie NP - Last Filed: 05/10/21 01:40> Palpation (GI): Soft to palpation and Tenderness to palpation present (GI) (Left lower quadrant with guarding and rebound) <Annika Marie NP - Last Filed: 05/10/21 01:40> Auscultation: normal bowel sounds <Annika Marie NP - Last Filed: 05/10/21 01:40> : General: Yes no CVA tenderness <Annika Marie NP - Last Filed: 05/10/21 01:40> Back/Spine/Pelvis: Back: no CVA tenderness <Annika Marie NP - Last Filed: 05/10/21 01:40> Thoracic/Lumbar Spine: thoracic and lumbar spine normal to inspection <Annika Marie NP - Last Filed: 05/10/21 01:40> Skin: General skin exam: no rashes or lesions noted <Annika Marie NP - Last Filed: 05/10/21 01:40> Neuro: General: patient oriented x3, no focal motor deficits and normal sensation to monofilament <Annika Marie NP - Last Filed: 05/10/21 01:40> Cranial nerves: Yes Equal, round and reactive pupils present <Annika Marie NP - Last Filed: 05/10/21 01:40> Cognition (Neuro): normal cognition <Annika Marie S[employer]IOR [employer] DEVELOPER - Last Filed: 05/10/21 01:40> Speech: No Abnormal speech present <Annika Marie NP - Last Filed: 05/10/21 01:40> Gait exam (Neuro): Normal gait present <Annika Marie NP - Last Filed: 05/10/21 01:40> Motor exam (neuro): 5/5 motor strength present throughout <Annika Marie NP - Last Filed: 05/10/21 01:40> Extrem: General: Yes normal to inspection <Annika Marie NP - Last Filed: 05/10/21 01:40> Course Course Course Narrative: 76-year-old female here with left-sided abdominal pain for 1 week with no other symptoms. On exam has moderate tenderness to left lower quadrant with rebound and guarding. Will check labs, UA, CT abdomen and pelvis. Provide analgesia and antiemetic 0045- Call from Radiology. 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 0-spoke to Dr. Baez from General surgery. Agree with plan for anticoagulation. Medically managed. Discussed with vascular. 54-spoke to Dr. Villarreal. ? new versus chronic as patient has collateral circulation. Recommended starting anticoagulation 54-spoke to family and patient. Repeat abdominal exam is benign. Patient tells me her pain is improved after receiving one dose of IV morphine. Her abdomen is soft with no tenderness. Additional labs ordered. Anticoagulation ordered. At this time low concern for sepsis with normal vitals (chronic leukopenia). However cannot rule out infection. Blood cultures and lactic acid ordered. Antibiotics ordered 129-Spoke to Dr Hernandes who accepted admission. <Annika Marie NP - Last Filed: 05/10/21 01:40> MDM - Abdominal Pain MDM Narrative Medical decision making narrative: Diverticulitis, renal colic, pyelonephritis <Annika Marie NP - Last Filed: 05/10/21 01:40> Medical Records Attestation: I reviewed the patient's medical records. <Annika Marie NP - Last Filed: 05/10/21 01:40> Lab Data Attestation: I reviewed the patient's lab results. <Annika Marie NP - Last Filed: 05/10/21 01:40> Result diagrams: : 05/09/21 18:59 05/09/21 18:59 <Annika Marie NP - Last Filed: 05/10/21 01:40> Labs: Lab Results 05/09/21 05/09/21 05/10/21 Range/Units 18:59 18:59 00:31 WBC 3.1 L (4.8-10.8) X10*3/uL RBC 3.69 L D (4.20-5.50) X10*6/uL Hgb 10.6 L D (12.0-16.0) g/dl Hct 33.7 L D (37-47) % MCV 91.3 (80-98) fL MCH 28.7 (27.0-33.0) pg MCHC 31.5 (31.0-35.0) g/dl RDW 22.5 H (11.0-16.0) % Plt Count 216 D (160-400) X10*3/uL MPV 9.1 L (9.4-12.3) fL Immature Gran % (Auto) Cancelled Neut % (Auto) Cancelled Lymph % (Auto) Cancelled Lewis % (Auto) Cancelled Eos % (Auto) Cancelled Baso % (Auto) Cancelled Lymph # (Auto) Cancelled Lewis # (Auto) Cancelled Eos # (Auto) Cancelled Baso # (Auto) Cancelled Abs Immat Gran (auto) Cancelled Absolute Neuts (auto) Cancelled Absolute Nucleated RBC 0.000 (0.0-0.012) X10*3/uL Nucleated RBC % (auto) 0.0 (0.0-0.2) /100WBC Neutrophils % (Manual) 1 L (45-73) % Band Neutrophils % 0 L (3-5) % Lymphocytes % (Manual) 75 H (20-40) % Atypical Lymphs % (Man) 3 (0-6) % Monocytes % (Manual) 16 H (2-11) % Eosinophils % (Manual) 2 (0-4) % Basophils % (Manual) 3 H (0-1) % Abs Neuts (Manual) Not Reportable Lymphocytes # (Manual) 2.3 (0.6-4.8) X10*3/uL Atyp Lymphs # (Manual) 0.1 x10*3/uL Monocytes # (Manual) 0.5 (0.0-1.2) X10*3/uL Eosinophils # (Manual) 0.1 (0.0-0.8) X10*3/UL Basophils # (Manual) 0.1 (0.0-0.3) X10*3/uL Platelet Estimate NORMAL (NORMAL) Plt Morphology Comment NORMAL RBC Morphology NOTED Schistocytes 1+ (0-2) /OIF PT (9.9-13.0) SEC INR (0.9-1.1) PTT (Heparin Protocol) (53-77.9) SEC Sodium 134 L (135-145) mmol/L Potassium 4.6 (3.3-5.1) mmol/L Chloride 102 (96-108) mmol/L Carbon Dioxide 25 (22-29) mmol/L Anion Gap 12 (12-20) BUN 12 (9-16) mg/dL Creatinine 0.66 (0.5-1.4) mg/dL Estim Creat Clear Calc 48.1 Estimated GFR > 60 Random Glucose 104 (60-115) mg/dL Lactic Acid (0.5-2.0) mmol/L Calcium 8.6 D (8.4-10.2) mg/dL Total Bilirubin 0.4 (0.0-1.0) mg/dL AST 18 (5-31) U/L ALT 11 (0-31) U/L Alkaline Phosphatase 84 (39-117) U/L Total Protein 7.8 D (6.5-8.0) g/dL Albumin 3.2 L D (3.5-5.0) g/dL Lipase 51 (8-78) U/L Urine Color YELLOW Urine Appearance CLEAR Urine pH 7.0 (5.0-8.0) Ur Specific [place] 1.010 (1.005-1.025) Urine Protein NEG (NEG-TRACE) MG/DL Urine Glucose (UA) NEG (NEG) MG/DL Urine Ketones NEG (NEG) MG/DL Urine Blood NEG (NEG) Urine Nitrite NEG (NEG) Ur Leukocyte Esterase NEG (NEG) COVID-19 (DESIREE) (Negative) COVID-19 Clin Com 05/10/21 05/10/21 05/10/21 Range/Units 00:36 01:22 01:22 WBC (4.8-10.8) X10*3/uL RBC (4.20-5.50) X10*6/uL Hgb (12.0-16.0) g/dl Hct (37-47) % MCV (80-98) fL MCH (27.0-33.0) pg MCHC (31.0-35.0) g/dl RDW (11.0-16.0) % Plt Count (160-400) X10*3/uL MPV (9.4-12.3) fL Immature Gran % (Auto) Neut % (Auto) Lymph % (Auto) Lewis % (Auto) Eos % (Auto) Baso % (Auto) Lymph # (Auto) Lewis # (Auto) Eos # (Auto) Baso # (Auto) Abs Immat Gran (auto) Absolute Neuts (auto) Absolute Nucleated RBC (0.0-0.012) X10*3/uL Nucleated RBC % (auto) (0.0-0.2) /100WBC Neutrophils % (Manual) (45-73) % Band Neutrophils % (3-5) % Lymphocytes % (Manual) (20-40) % Atypical Lymphs % (Man) (0-6) % Monocytes % (Manual) (2-11) % Eosinophils % (Manual) (0-4) % Basophils % (Manual) (0-1) % Abs Neuts (Manual) Lymphocytes # (Manual) (0.6-4.8) X10*3/uL Atyp Lymphs # (Manual) x10*3/uL Monocytes # (Manual) (0.0-1.2) X10*3/uL Eosinophils # (Manual) (0.0-0.8) X10*3/UL Basophils # (Manual) (0.0-0.3) X10*3/uL Platelet Estimate (NORMAL) Plt Morphology Comment RBC Morphology Schistocytes /OIF PT 11.7 (9.9-13.0) SEC INR 1.0 (0.9-1.1) PTT (Heparin Protocol) 30.3 L (53-77.9) SEC Sodium (135-145) mmol/L Potassium (3.3-5.1) mmol/L Chloride (96-108) mmol/L Carbon Dioxide (22-29) mmol/L Anion Gap (12-20) BUN (9-16) mg/dL Creatinine (0.5-1.4) mg/dL Estim Creat Clear Calc Estimated GFR Random Glucose (60-115) mg/dL Lactic Acid 0.6 (0.5-2.0) mmol/L Calcium (8.4-10.2) mg/dL Total Bilirubin (0.0-1.0) mg/dL AST (5-31) U/L ALT (0-31) U/L Alkaline Phosphatase (39-117) U/L Total Protein (6.5-8.0) g/dL Albumin (3.5-5.0) g/dL Lipase (8-78) U/L Urine Color Urine Appearance Urine pH (5.0-8.0) Ur Specific [place] (1.005-1.025) Urine Protein (NEG-TRACE) MG/DL Urine Glucose (UA) (NEG) MG/DL Urine Ketones (NEG) MG/DL Urine Blood (NEG) Urine Nitrite (NEG) Ur Leukocyte Esterase (NEG) COVID-19 (DESIREE) Negative (Negative) COVID-19 Clin Com See Note <Annika Marie, SENIOR [employer] DEVELOPER - Last Filed: 05/10/21 01:40> Lab Results 05/09/21 05/09/21 05/10/21 Range/Units 18:59 18:59 00:31 WBC 3.1 L (4.8-10.8) X10*3/uL RBC 3.69 L D (4.20-5.50) X10*6/uL Hgb 10.6 L D (12.0-16.0) g/dl Hct 33.7 L D (37-47) % MCV 91.3 (80-98) fL MCH 28.7 (27.0-33.0) pg MCHC 31.5 (31.0-35.0) g/dl RDW 22.5 H (11.0-16.0) % Plt Count 216 D (160-400) X10*3/uL MPV 9.1 L (9.4-12.3) fL Immature Gran % (Auto) Cancelled Neut % (Auto) Cancelled Lymph % (Auto) Cancelled Lewis % (Auto) Cancelled Eos % (Auto) Cancelled Baso % (Auto) Cancelled Lymph # (Auto) Cancelled Lewis # (Auto) Cancelled Eos # (Auto) Cancelled Baso # (Auto) Cancelled Abs Immat Gran (auto) Cancelled Absolute Neuts (auto) Cancelled Absolute Nucleated RBC 0.000 (0.0-0.012) X10*3/uL Nucleated RBC % (auto) 0.0 (0.0-0.2) /100WBC Neutrophils % (Manual) 1 L (45-73) % Band Neutrophils % 0 L (3-5) % Lymphocytes % (Manual) 75 H (20-40) % Atypical Lymphs % (Man) 3 (0-6) % Monocytes % (Manual) 16 H (2-11) % Eosinophils % (Manual) 2 (0-4) % Basophils % (Manual) 3 H (0-1) % Abs Neuts (Manual) Not Reportable Lymphocytes # (Manual) 2.3 (0.6-4.8) X10*3/uL Atyp Lymphs # (Manual) 0.1 x10*3/uL Monocytes # (Manual) 0.5 (0.0-1.2) X10*3/uL Eosinophils # (Manual) 0.1 (0.0-0.8) X10*3/UL Basophils # (Manual) 0.1 (0.0-0.3) X10*3/uL Platelet Estimate NORMAL (NORMAL) Plt Morphology Comment NORMAL RBC Morphology NOTED Schistocytes 1+ (0-2) /OIF PT (9.9-13.0) SEC INR (0.9-1.1) PTT (Heparin Protocol) (53-77.9) SEC Sodium 134 L (135-145) mmol/L Potassium 4.6 (3.3-5.1) mmol/L Chloride 102 (96-108) mmol/L Carbon Dioxide 25 (22-29) mmol/L Anion Gap 12 (12-20) BUN 12 (9-16) mg/dL Creatinine 0.66 (0.5-1.4) mg/dL Estim Creat Clear Calc 48.1 Estimated GFR > 60 Random Glucose 104 (60-115) mg/dL Lactic Acid (0.5-2.0) mmol/L Calcium 8.6 D (8.4-10.2) mg/dL Total Bilirubin 0.4 (0.0-1.0) mg/dL AST 18 (5-31) U/L ALT 11 (0-31) U/L Alkaline Phosphatase 84 (39-117) U/L Total Protein 7.8 D (6.5-8.0) g/dL Albumin 3.2 L D (3.5-5.0) g/dL Lipase 51 (8-78) U/L Urine Color YELLOW Urine Appearance CLEAR Urine pH 7.0 (5.0-8.0) Ur Specific [place] 1.010 (1.005-1.025) Urine Protein NEG (NEG-TRACE) MG/DL Urine Glucose (UA) NEG (NEG) MG/DL Urine Ketones NEG (NEG) MG/DL Urine Blood NEG (NEG) Urine Nitrite NEG (NEG) Ur Leukocyte Esterase NEG (NEG) COVID-19 (DESIREE) (Negative) COVID-19 Clin Com 05/10/21 05/10/21 05/10/21 Range/Units 00:36 01:22 01:22 WBC (4.8-10.8) X10*3/uL RBC (4.20-5.50) X10*6/uL Hgb (12.0-16.0) g/dl Hct (37-47) % MCV (80-98) fL MCH (27.0-33.0) pg MCHC (31.0-35.0) g/dl RDW (11.0-16.0) % Plt Count (160-400) X10*3/uL MPV (9.4-12.3) fL Immature Gran % (Auto) Neut % (Auto) Lymph % (Auto) Lewis % (Auto) Eos % (Auto) Baso % (Auto) Lymph # (Auto) Lewis # (Auto) Eos # (Auto) Baso # (Auto) Abs Immat Gran (auto) Absolute Neuts (auto) Absolute Nucleated RBC (0.0-0.012) X10*3/uL Nucleated RBC % (auto) (0.0-0.2) /100WBC Neutrophils % (Manual) (45-73) % Band Neutrophils % (3-5) % Lymphocytes % (Manual) (20-40) % Atypical Lymphs % (Man) (0-6) % Monocytes % (Manual) (2-11) % Eosinophils % (Manual) (0-4) % Basophils % (Manual) (0-1) % Abs Neuts (Manual) Lymphocytes # (Manual) (0.6-4.8) X10*3/uL Atyp Lymphs # (Manual) x10*3/uL Monocytes # (Manual) (0.0-1.2) X10*3/uL Eosinophils # (Manual) (0.0-0.8) X10*3/UL Basophils # (Manual) (0.0-0.3) X10*3/uL Platelet Estimate (NORMAL) Plt Morphology Comment RBC Morphology Schistocytes /OIF PT 11.7 (9.9-13.0) SEC INR 1.0 (0.9-1.1) PTT (Heparin Protocol) 30.3 L (53-77.9) SEC Sodium (135-145) mmol/L Potassium (3.3-5.1) mmol/L Chloride (96-108) mmol/L Carbon Dioxide (22-29) mmol/L Anion Gap (12-20) BUN (9-16) mg/dL Creatinine (0.5-1.4) mg/dL Estim Creat Clear Calc Estimated GFR Random Glucose (60-115) mg/dL Lactic Acid 0.6 (0.5-2.0) mmol/L Calcium (8.4-10.2) mg/dL Total Bilirubin (0.0-1.0) mg/dL AST (5-31) U/L ALT (0-31) U/L Alkaline Phosphatase (39-117) U/L Total Protein (6.5-8.0) g/dL Albumin (3.5-5.0) g/dL Lipase (8-78) U/L Urine Color Urine Appearance Urine pH (5.0-8.0) Ur Specific [place] (1.005-1.025) Urine Protein (NEG-TRACE) MG/DL Urine Glucose (UA) (NEG) MG/DL Urine Ketones (NEG) MG/DL Urine Blood (NEG) Urine Nitrite (NEG) Ur Leukocyte Esterase (NEG) COVID-19 (DESIREE) Negative (Negative) COVID-19 Clin Com See Note <Angelica Christian MD - Last Filed: 05/10/21 06:11> Imaging Data CT scan - abdomen: Attestation: I personally reviewed and interpreted this imaging study as follows: <Annika Marie NP - Last Filed: 05/10/21 01:40> Radiologist's impression: FINDINGS: LUNG BASES: The visualized lung bases are unremarkable.? LIVER, GALLBLADDER, AND BILIARY TREE: The liver is normal in size, shape, and attenuation. No focal hepatic lesion or biliary ductal dilatation is present. Status post cholecystectomy with clips in the gallbladder fossa. Single surgical clip is also present in Morison's pouch.? PANCREAS: Unremarkable. Pancreatic duct mildly prominent at 2.6 mm, unchanged. No definite pancreatic mass is seen. SPLEEN: Unremarkable.? ADRENAL GLANDS: Unremarkable.? KIDNEYS AND URETERS: The kidneys are normal in size, shape, and attenuation. No hydronephrosis, hydroureter, or calculi seen. No perinephric stranding. ? BLADDER: Unremarkable.? GASTROINTESTINAL TRACT: Diverticular changes present in the colon without diverticulitis. The colon otherwise appears unremarkable. No definite small bowel dilatation is seen but some small bowel wall thickening is seen. The appendix is not identified.? ABDOMINAL WALL: No significant hernia is appreciated.? LYMPH NODES: Normal. VASCULAR: Marked tortuosity of the abdominal aorta and iliac vessels. Mild fusiform dilatation of the common iliac arteries. Marked calcific plaquing is present. A retrievable IVC filter is present just below the level of the renal veins. The legs are extraluminal with one extending into the L4-L5 disc space. There is reflux in the left gonadal vein with a small number of pelvic varices present. This is most likely secondary to not cracker compression of the left renal vein between the SMA and aorta. Of note, there appears to be in no short segment occlusion/stenosis/near occlusion involving the proximal SMA. There is reconstitution about 2.4 cm beyond its origin from the gastroduodenal collaterals. PELVIC VISCERA: Retroverted uterus appears to be present. An abnormal adnexal mass is not seen. No free intraperitoneal fluid is present. OSSEOUS STRUCTURES: There is marked osteopenia present with compression fractures involving nearly every vertebral body. No acute fractures are seen. A bronwyn and screw is present in the left hip. Old healed pelvic fractures are present.? CT/CT abdomen pelvis w con IMPRESSION: 1.? New SMA occlusion/critical stenosis. There is distal filling via gastroduodenal collaterals. Some mild small bowel thickening is present without pneumatosis or portal venous gas. 2.? Other incidental findings include cholecystectomy, stable pancreatic duct dilatation, colonic diverticula without diverticulitis, retrievable IVC filter with legs extending outside of the IVC with one in the L4-L5 disc space, not cracker compression of left renal vein with retrograde flow in the ovarian vein and marked osteopenia with multiple compression fractures <Annika Marie NP - Last Filed: 05/10/21 01:40> ECG Data Attestation: I personally reviewed and interpreted this ECG as follows: <CHRIS Peters Last Filed: 05/10/21 01:40> ECG interpretation date: 05/09/21 <CHRIS Peters Last Filed: 05/10/21 01:40> ECG interpretation time: 19:12 <CHRIS Peters Last Filed: 05/10/21 01:40> Interpretation: Normal sinus rhythm with a rate of 78, normal LA, normal QRS, normal QT <CHRIS Peters Last Filed: 05/10/21 01:40> Discharge Plan 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 <CHRIS Peters Last Filed: 05/10/21 01:40> Source: old records reviewed and nursing notes reviewed <Annika Marie NP - Last Filed: 05/10/21 01:40> Medical History: Medical History CVA (cerebral vascular accident) Essential hypertension Hypertension Proteinuria Pure hypercholesterolemia Rheumatoid arthritis Squamous cell carcinoma of nose <Annika Marie NP - Last Filed: 05/10/21 01:40> Surgical History: Surgical History History of appendectomy <Annika Marie NP - Last Filed: 05/10/21 01:40> Family History Family History: Family History Mother Heart problem Father Asthma <Annika Marie NP - Last Filed: 05/10/21 01:40> Social History Social History: Social History Household Members: Spouse Housing: House Do you presently have visiting nurse or other home services: No Alcohol intake: former Patient Tobacco Use Status: Never used Tobacco e-Cigarette/Vaping Use: Never Used Second Hand Smoke Exposure: No Advance Directives: No Advance Directives Information Provided: No service: No Current occupational status: retired <Annika Marie NP - Last Filed: 05/10/21 01:40>
[2021-05-09 22:43] VITALS: BP 172/90; PULSE 70; RESP 16; TEMP 36.6; O2SAT 99
[2021-05-09 22:48] LABS: Lipase 51 U/L (8-78)
[2021-05-09] MEDS: iohexoL 350 MG/ML 100 ML INFUS..BTL 85 ML IV (23:34)
[2021-05-09 23:53] VITALS: RESP 16
[2021-05-09] MEDS: Morphine Sulfate 2 MG/ML CARTRIDGE IVPUSH (23:53)
[2021-05-09] MEDS: ondansetron HCL 4 MG/2 ML VIAL IVPUSH (23:54)
--- NOTE | 2021-05-09 23:54 | PC.NURSE ---
PT RETURNS FROM CT, PT MEDICATED PER EMAR FOR PAIN AND NAUSEA.
[2021-05-10] VITALS (9 sets, daily range): BP systolic 124–163; BP diastolic 63–80; PULSE 58–75; RESP 13–18; TEMP 36.6–36.9; O2SAT 96–100
--- NOTE | 2021-05-10 00:27 | PC.NURSE ---
PT MOVED TO ROOM FOR URINE SAMPLE FROM BEDPAN. PT BEING DRAWN FOR LACTIC ACID AT THIS TIME. PT DENIES ANY PAIN/COMPLAINTS AT THIS TIME.
[2021-05-10 00:44] LABS: Appearance Urine CLEAR; Color Urine YELLOW; Glucose Urine UA NEG (NEG); Leukocyte Esterase Urine NEG (NEG); Nitrite Urine NEG (NEG); Urine Blood NEG (NEG); Urine Ketones NEG (NEG); Urine Protein NEG (NEG-TRACE)
[2021-05-10 01:14] LABS: Lactic Acid 0.6 mmol/L (0.5-2.0)
[2021-05-10] MEDS: Piperacillin Sodium/Tazobactam 3.375 GM in 0.9 % Sodium Chloride 50 ML IV (01:15)
[2021-05-10] MEDS: Heparin Sodium,Porcine/1/2NS 25,000 UNIT/250 ML IV.SOLN 5.72 UNIT IVCONT (01:31)
[2021-05-10] MEDS: Heparin Sodium,Porcine 5,000 UNIT/ML VIAL 3300 UNIT IVPUSH (01:34)
--- NOTE | 2021-05-10 01:41 | PC.NURSE ---
PA SPOKE WITH MULTIPLE DOCTORS REGARDING PT'S CARE AND DECIDED TO MEDICATED PT WITH HEPARIN . CHARGE NURSE ALSO INVOLVED REGARDING SAFETY TO HANGING HEPARIN AT THIS TIME. HEPARIN DRIP UP AND RUNNING ON PUMP AFTER PT INR DRAWN. ROCEPHIN UP AND RUNNING W/O DIFFICULTY, SITE INTACT. PT ALERT AND SPEAKING WITH GARBLED SENTENCES, FEW MAKING SENSE. RESPIRATIONS EASY, N/L, DENIES COUGH/CONGESTION. NO EDEMA NOTED TO LOWER EXT. WILL CONTINUE TO MONITOR PT.
[2021-05-10 01:44] LABS: COVID-19 Test Negative (Negative); Prothrombin Time 11.7 SEC (9.9-13.0)
[2021-05-10 01:46] LABS: PTT Heparin Drip 30.3 SEC (53-77.9)
--- NOTE | 2021-05-10 03:15 | PC.NURSE ---
PT ALERT, RESPIRATIONS N/L. SKIN W/D. PT AWAITING FOR FURTHER ORDERS.
--- NOTE | 2021-05-10 04:28 | PC.NURSE ---
HEPARIN CONTINUES TO RUN AT 14 UNITS/KG/HR. PT DENIES ANY BLEEDING. PT URINATED IN BED, PT CLEANED UP WITH WARM BLANKETS APPLIED TO PT. PURWICK PLACED. PT AWAITING FOR ROOM ASSIGNMENT. WILL CONTINUE TO MONITOR PT.
--- NOTE | 2021-05-10 06:25 | PC.NURSE ---
PT WAKES TO VOICE AND DENIES ANY COMPLAINTS AT THIS TIME. HEPARIN CONTINUE TO RUN ON PUMP. WILL CONTINUE TO MONITOR PT.
[2021-05-10 07:06] LABS: Basophils Percent Auto 1.3 % (0-2); Eosinophils Absolute Auto 0.1 X10*3/uL (0.0-0.4); Hematocrit 32.3 % (37-47); Imm Gran Abs Auto 0.01 X10*3/uL (0.00-0.03); Imm Gran Pct Auto 0.4 % (0.0-0.4); Lymphocytes Absolute Auto 1.6 X10*3/uL (1.2-4.9); Lymphocytes Percent Auto 69.7 % (20-40); MANUAL DIFF FLAG SCAN; Mean Corpuscular Hemoglobin 28.6 pg (27.0-33.0); Mean Corpuscular Volume 92.3 fL (80-98); Mean Platelet Volume 9.6 fL (9.4-12.3); Monocytes Absolute Auto 0.6 X10*3/uL (0.1-1.2); Monocytes Percent Auto 23.8 % (2-11); Neutrophils Percent Auto 1.8 % (45-73); Platelet Count 205 X10*3/uL (160-400); Red Cell Distribution Width 22.5 % (11.0-16.0); SCAN SMEAR FLAG 1
--- NOTE | 2021-05-10 07:06 | P.HPHOSP_ITS ---
History of Present Illness Date of Service: 05/10/21 Chief Complaint: Abdominal pain 76-year-old female with past medical history of rheumatoid arthritis, hypertension, GERD, CVA with right-sided deficits here with complaints of left- sided abdominal pain for 1 week. Patient reports the abdominal pain is about 10 /10, nonradiating, intermittent, slowly be eating or exacerbating factors, not associated with any nausea or vomiting, no melena or bright blood per rectum, no diarrhea constipation, no urinary symptoms and no lower extremity edema. Underwent today the patient hemodynamically stable with no significant abnormal vitals except for a blood pressure of 214/109 that improved spontaneously with no intervention For WBC count of 6.1, hemoglobin 10.6, otherwise unremarkable. UA negative. Abdominal pelvic CT shows new SMA occlusion/critical stenosis. There is distal filling the gastroduodenal collaterals. Some mild small bowel thickening is present without a pneumatosis or portal venous gas. This case was discussed with Dr. Noble, patient started on heparin drip and will be admitted for further management. Review of Systems Review of Systems: Yes all other systems are reviewed and are negative [facility] Medical History CVA (cerebral vascular accident) Essential hypertension Hypertension Proteinuria Pure hypercholesterolemia Rheumatoid arthritis Squamous cell carcinoma of nose Family History Mother Heart problem Father Asthma Pertinent family history: Denies any pertinent history Surgical History History of appendectomy Social History Household Members: Spouse Housing: House Do you presently have visiting nurse or other home services: No Alcohol intake: former Patient Tobacco Use Status: Never used Tobacco e-Cigarette/Vaping Use: Never Used Second Hand Smoke Exposure: No Advance Directives: No Advance Directives Information Provided: No service: No Current occupational status: retired Meds Allergies Allergy/AdvReac Type Severity Reaction Status Date / Time No Known Allergies Allergy Unknown Verified 03/07/21 13:27 [No Known Allergies*] Active Medications: Current Medications Acetaminophen (Acetaminophen 325 Mg Tablet) 650 mg PO Q6H PRN PRN Reason: Pain, Mild (Pain Scale 1-3) Docusate Sodium (Docusate Sodium 100 Mg Capsule) 100 mg PO DAILY PRN PRN Reason: Constipation Heparin Sodium (Porcine) (Heparin Sodium,Porcine 5,000 Unit/Ml Vial) 1,600 unit 40 unit/kg (1600 unit) IVPUSH PROTOCOL BOLUS PRN; Protocol PRN Reason: 40 unit/kg - Heparin Protocol Heparin Sodium (Porcine) (Heparin Sodium,Porcine 5,000 Unit/Ml Vial) 3,300 unit 80 unit/kg (3300 unit) IVPUSH PROTOCOL BOLUS PRN; Protocol PRN Reason: 80 unit/kg - Heparin Protocol Heparin Sodium/Sodium Chloride () 25,000 unit in 250 mls @ 0 mls/hr IVCONT .Q0M RICHARD; Protocol Last Admin: 05/10/21 01:31 Dose: 14 units/kg/hr, 5.72 mls/hr Documented by: Ondansetron HCl (Ondansetron Hcl 4 Mg/2 Ml Vial) 4 mg IVPUSH Q8H PRN PRN Reason: Nausea and Vomiting Oxycodone HCl (Oxycodone Hcl Immed Release 5 Mg Tablet) 5 mg PO Q6H PRN PRN Reason: Pain, Severe (Pain Scale 7-10) Pharmacy Consult (Consult Rx Perform Med Rec) 1 each MISCELLANE ONCE PRN PRN Reason: Consult order Sodium Chloride (0.9 % Sodium Chloride Flush 3 Ml Syringe) [address] [facility] Home Medications Medication Instructions Recorded Confirmed Last Taken Type folic acid 1 mg tablet 1 tab PO DAILY 05/10/21 05/10/21 Unknown History methotrexate sodium 2.5 mg tablet 5 tab PO QWEEK 05/10/21 05/10/21 Unknown History Physical Exam Vital Signs and Narrative: Vital Signs: Last Vital Signs Temp 97.8 F 05/09/21 22:43 Pulse 75 05/10/21 06:28 Resp 18 05/10/21 06:28 BP 163/76 H 05/10/21 06:28 Pulse Ox 100 05/10/21 06:28 Body Mass Index 16.9 Const: General: cooperative and no acute distress Orientation/consciousness: patient oriented x3 Eyes: General: appearance normal, both eyes and all related structures Resp: Effort & Inspection: normal respiratory effort Auscultation: clear to auscultation bilaterally Cardio: Rate: regular rate Rhythm: regular rhythm GI: Other: Mild epigastric tenderness in the left upper and lower extremity joint Palpation (GI): Soft to palpation Auscultation: normal bowel sounds Skin: General skin exam: no rashes or lesions noted Neuro: General: patient oriented x3 Cognition (Neuro): normal cognition Extrem: General: Yes normal to inspection and Yes no pedal edema Results Labs CBC and Chem 7: 05/09/21 18:59 05/09/21 18:59 Labs: Laboratory Results - last 24 hr 05/09/21 05/09/21 05/10/21 18:59 18:59 00:31 MCV 91.3 MCH 28.7 MCHC 31.5 RDW 22.5 H Plt Count 216 D MPV 9.1 L Immature Gran % (Auto) Cancelled Neut % (Auto) Cancelled Lymph % (Auto) Cancelled [place] % (Auto) Cancelled Eos % (Auto) Cancelled Baso % (Auto) Cancelled Lymph # (Auto) Cancelled [place] # (Auto) Cancelled Eos # (Auto) Cancelled Baso # (Auto) Cancelled Abs Immat Gran (auto) Cancelled Absolute Neuts (auto) Cancelled Absolute Nucleated RBC 0.000 Nucleated RBC % (auto) 0.0 Neutrophils % (Manual) 1 L Band Neutrophils % 0 L Lymphocytes % (Manual) 75 H Atypical Lymphs % (Man) 3 Monocytes % (Manual) 16 H Eosinophils % (Manual) 2 Basophils % (Manual) 3 H Abs Neuts (Manual) Not Reportable Lymphocytes # (Manual) 2.3 Atyp Lymphs # (Manual) 0.1 Monocytes # (Manual) 0.5 Eosinophils # (Manual) 0.1 Basophils # (Manual) 0.1 Platelet Estimate NORMAL Plt Morphology Comment NORMAL RBC Morphology NOTED Schistocytes 1+ (0-2) PT INR PTT (Heparin Protocol) Anion Gap 12 Estim Creat Clear Calc 48.1 Estimated GFR > 60 Random Glucose 104 Lactic Acid Calcium 8.6 D Total Bilirubin 0.4 AST 18 ALT 11 Alkaline Phosphatase 84 Total Protein 7.8 D Albumin 3.2 L D Lipase 51 Urine Color YELLOW Urine Appearance CLEAR Urine pH 7.0 Ur Specific [place] 1.010 Urine Protein NEG Urine Glucose (UA) NEG Urine Ketones NEG Urine Blood NEG Urine Nitrite NEG Ur Leukocyte Esterase NEG COVID-19 (DESIREE) COVID-19 Clin Com 05/10/21 05/10/21 05/10/21 00:36 01:22 01:22 MCV MCH MCHC RDW Plt Count MPV Immature Gran % (Auto) Neut % (Auto) Lymph % (Auto) [place] % (Auto) Eos % (Auto) Baso % (Auto) Lymph # (Auto) [place] # (Auto) Eos # (Auto) Baso # (Auto) Abs Immat Gran (auto) Absolute Neuts (auto) Absolute Nucleated RBC Nucleated RBC % (auto) Neutrophils % (Manual) Band Neutrophils % Lymphocytes % (Manual) Atypical Lymphs % (Man) Monocytes % (Manual) Eosinophils % (Manual) Basophils % (Manual) Abs Neuts (Manual) Lymphocytes # (Manual) Atyp Lymphs # (Manual) Monocytes # (Manual) Eosinophils # (Manual) Basophils # (Manual) Platelet Estimate Plt Morphology Comment RBC Morphology Schistocytes PT 11.7 INR 1.0 PTT (Heparin Protocol) 30.3 L Anion Gap Estim Creat Clear Calc Estimated GFR Random Glucose Lactic Acid 0.6 Calcium Total Bilirubin AST ALT Alkaline Phosphatase Total Protein Albumin Lipase Urine Color Urine Appearance Urine pH Ur Specific [place] Urine Protein Urine Glucose (UA) Urine Ketones Urine Blood Urine Nitrite Ur Leukocyte Esterase COVID-19 (DESIREE) Negative COVID-19 Clin Com See Note Imaging Radiologist's Impressions: Impressions Abdomen/Pelvis CT 05/09/21 22:31 IMPRESSION: 1. New SMA occlusion/critical stenosis. There is distal filling via gastroduodenal collaterals. Some mild small bowel thickening is present without pneumatosis or portal venous gas. 2. Other incidental findings include cholecystectomy, stable pancreatic duct dilatation, colonic diverticula without diverticulitis, retrievable IVC filter with legs extending outside of the IVC with one in the L4-L5 disc space, not cracker compression of left renal vein with retrograde flow in the ovarian vein and marked osteopenia with multiple compression fractures This critical result was discussed with Annika Marie NP at 12:15 AM on 05/10/2021 and it was ascertained that the content and urgency of the report was understood at the time of direct communication. Assessment and Plan (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 (2) Abdominal pain: Status: Acute 76-year-old female with past medical history of CVA, hypertension who presents to the hospital with complaints of abdominal pain found to have SMA occlusion/stenosis # abdominal pain - secondary to SMA occlusion/stenosis - patient started on pain medication with significant improvement in her abdominal pain - start on heparin - continue pain control as needed # SMA occlusion/stenosis - discuss with General surgery as well as with vascular surgery - general surgery did not feel any intervention is required at this time - vascular surgery recommended heparin drip and they will consult with patient in the morning # hypertension - stable - continue amlodipine 2.5 # history of CVA - does not appear to be on aspirin or high-dose statins- unclear etiology DVT prophylaxis: BidModo Stroke Does the patient have a stroke diagnosis?: No VTE Prior VTE?: No VTE Risk Level:: Medical - moderate - high VTE Device Contraindication: Treatment Not Tolerated VTE Drug Contraindication: N/A - Med Ordered
[2021-05-10 07:17] LABS: White Blood Count 2.3 X10*3/uL (4.8-10.8)
--- NOTE | 2021-05-10 07:30 | CA_ITS ---
Transthoracic Echocardiogram Patient (Last, First, Middle): Michelle Infante, Gender: Female Date of : 1945 Age: 76 Procedure Date: 05/10/2021 Procedure Type: Transthoracic Echocardiogram Location: S3E Height: 154.94 cm Weight: 40.82 kg BSA: 1.35 m2 Heart Rate: bpm BP: 163 / 76 mmHg Natural Fabricator: Referring MD: Mauricio Hernandes MD Symptoms: arterial occlusion Study Quality: Fair ECG Rhythm: Sinus Conclusions: - The left ventricular systolic function is mild to moderately decreased. The calculated ejection fraction is 44% by biplane method. - There is moderate global hypokinesis. - The basal inferior segment is akinetic. - There is mild aortic valve regurgitation. Findings Left Ventricle Normal left ventricular cavity size. There is moderately increased left ventricular wall thickness. The left ventricular systolic function is mild to moderately decreased. The calculated ejection fraction is 44% by biplane method. There is moderate global hypokinesis. E/E prime ratio is between 8 and 15 consistent with indeterminate filling pressures. Evidence suggests grade I (mild) diastolic dysfunction. Wall Motion Rest Echo Findings The basal inferior segment is akinetic. Atria Both atria are normal in size. Aortic Valve There is a normal trileaflet aortic valve. There is no aortic valve stenosis. There is mild aortic valve regurgitation. Mitral Valve There is mild anterior and posterior mitral leaflet thickening. There is trace mitral valve regurgitation. There is no mitral valve stenosis. Pulmonic Valve The pulmonic valve was not well visualized. Tricuspid Valve Normal tricuspid valve structure. There is mild tricuspid valve regurgitation. The pulmonary artery systolic pressure is normal. Great Vessels The asc aorta is normal in size. Venous The inferior vena cava is normal in size and collapses greater than 50% with inspiration. Pericardium/Pleural There is no evidence of pericardial effusion. Prior Study Comparison No prior study available for comparison. Measurements 2D Linear Measurements IVSd: 1.39 0.6-0.9/0.6-1.0 cm LVIDd: 3.61 3.9-5.3/4.2-5.9 cm LVIDd Index: 2.67 2.4-3.2/2.2-3.1 cm/m2 LVIDs: 2.35 2.0-3.6 cm LVPWd: 1.35 0.7-1.1 cm Ao Root: 2.80 2.1-3.5 cm LA Diam: 3.50 2.7-3.8/3.0-4.0 cm LAIDs Index: 2.59 1.5-2.3 cm/m2 LV Mass: 217.36 67-162/88-224 g LV Mass Index: 161.01 43-95/49-115 g/m2 LVOT Diam: 2.00 3.0+(-)1.3 cm 2D Systolic Function EF 4C: 41.60 >55% EF 2C: 47.30 >55% EF BiP: 43.80 >55% Mitral Valve MV Pk E: 0.49 MV PK A: 0.87 MV Decel Time: 295.00 E/A: 0.60 E'Lateral: 7.72 E'Medial: 3.81 E/E' Med: 12.80 E/E' Lat: 6.30 PHT: 87.00 MVA PHT: 2.53 Decel [place]: 1.65 Aortic Valve AoV Pk Armando: 1.45 AoV Mn Armando: 0.83 AoV VTI: 0.32 AoV Pk Grad: 8.00 Aov Mn Grad: 4.00 CRISTIAN Cont.VTI: 1.63 LVOT LVOT Pk Armando: 0.84 LVOT Mn Armando: 0.46 LVOT VTI: 0.17 LVOT Pk Grad: 3.00 LVOT Mn Grad: 1.00 LVOT Diam: 2.00 LVOT Area: 3.14 Diastolic Function MV Pk E: 0.49 MV Pk A: 0.87 E/A: 0.60 E'Medial: 3.81 E/E' Med: 12.80 E' Laterial: 7.72 E/E' Lat: 6.30 Right Ventricle TAPSE (mm): 18.00 TVS' Armando: 13.00 Tricuspid Valve TR Pk Armando: 1.90 TR Pk Grad: 14.00 Great Vessels Aorta Ao Root-2D: 2.80 2.0-3.7 cm Ao Asc: 3.10 2.1-3.4 cm Pulmonary Valve PV Pk Armando: 1.00 Peak PV Grad: 4.00 Updated in Other Vendor System with Status of Final Spencer Mckenna MD electronically signed on 05/11/2021 11:20:32 AM with status of Final
[2021-05-10 07:46] LABS: Anion Gap 10 (12-20); Blood Urea Nitrogen 11 mg/dL (9-16); Calcium 8.3 mg/dL (8.4-10.2); Carbon Dioxide 25 mmol/L (22-29); Chloride 104 mmol/L (96-108); Creatinine Clr Calc Pharmacy 47.4; Estimated Glomerular Filt Rate > 60; Glucose Random 84 mg/dL (60-115); Potassium 4.2 mmol/L (3.3-5.1); Sodium 135 mmol/L (135-145)
[2021-05-10 07:58] LABS: PTT Heparin Drip 59.6 SEC (53-77.9)
--- NOTE | 2021-05-10 08:04 | PC.NURSE ---
PTT RESULTS AT 0742 - (59.6) PER PROTOCOL - NO BOLUS AND NO RATE CHANGE. MD AWARE.
[2021-05-10 08:34] LABS: SLIDE REVIEW VERIFIED
[2021-05-10] MEDS: 0.9 % Sodium Chloride Flush 3 ML SYRINGE IVFLUSH (08:36)
--- NOTE | 2021-05-10 08:50 | P.CONGS_ITS ---
History of Present Illness Consult details Consult date: 05/10/21 Narrative: 76-year-old female, who came to the emergency room last night because of what she describes as abdominal pain for about 1 week now. She describes is mostly on the left side of the abdomen. She said this is mostly constant. She denies any nausea or vomiting. She denies any history of bloody stools. 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 Her lactate was normal at 0.6. Her pain had improved significantly last night after a dose of pain medications. Currently she says she does not have any pain anymore. 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 She says she has been bed-bound as she is unable to ambulate or stand without help. Review of Systems Constitutional: Constitutional: Denies chills and Denies fever(s) Cardiovascular: Cardiovascular: Denies chest pain, Denies dyspnea and Denies dyspnea on exertion Respiratory: Respiratory: Denies cough, Denies dyspnea and Denies dyspnea on exertion Gastrointestinal: Gastrointestinal: Denies hematochezia and Denies change in bowel habits Genitourinary: Genitourinary: Denies hematuria Musculoskeletal: Musculoskeletal: Denies back pain and Denies limited range of motion Neurologic: Reports focal weakness and Denies convulsions Psychiatric: Psychiatric: Denies depression and Denies mood swings PMFSH Past Medical History Medical History CVA (cerebral vascular accident) Essential hypertension Hypertension Proteinuria Pure hypercholesterolemia Rheumatoid arthritis Squamous cell carcinoma of nose Family History Family History Mother Heart problem Father Asthma Surgical History Surgical History History of appendectomy Social History Social History Household Members: Spouse Housing: House Do you presently have visiting nurse or other home services: Yes Alcohol intake: former Patient Tobacco Use Status: Never used Tobacco e-Cigarette/Vaping Use: Never Used Second Hand Smoke Exposure: No service: No Current occupational status: retired Meds Allergies Allergy/AdvReac Type Severity Reaction Status Date / Time No Known Allergies Allergy Unknown Verified 03/07/21 13:27 [No Known Allergies*] Active Medications: Current Medications Acetaminophen (Acetaminophen 325 Mg Tablet) 650 mg PO Q6H PRN PRN Reason: Pain, Mild (Pain Scale 1-3) Amlodipine Besylate (Amlodipine Besylate 2.5 Mg Tablet) 2.5 mg PO DAILY ON [facility] OF [facility]; Protocol Docusate Sodium (Docusate Sodium 100 Mg Capsule) 100 mg PO DAILY PRN PRN Reason: Constipation Folic Acid (Folic Acid 1 Mg Tablet) 1 mg PO DAILY ON LICENSE OF [facility] Heparin Sodium (Porcine) (Heparin Sodium,Porcine 5,000 Unit/Ml Vial) 1,600 unit 40 unit/kg (1600 unit) IVPUSH PROTOCOL BOLUS PRN; Protocol PRN Reason: 40 unit/kg - Heparin Protocol Heparin Sodium (Porcine) (Heparin Sodium,Porcine 5,000 Unit/Ml Vial) 3,300 unit 80 unit/kg (3300 unit) IVPUSH PROTOCOL BOLUS PRN; Protocol PRN Reason: 80 unit/kg - Heparin Protocol Heparin Sodium/Sodium Chloride () 25,000 unit in 250 mls @ 0 mls/hr IVCONT .Q0M ON LICENSE OF [facility]; Protocol Last Admin: 05/10/21 01:31 Dose: 14 units/kg/hr, 5.72 mls/hr Documented by: Methotrexate (Methotrexate Sodium 2.5 Mg Tablet) 12.5 mg PO Ren ON LICENSE OF [facility] Ondansetron HCl (Ondansetron Hcl 4 Mg/2 Ml Vial) 4 mg IVPUSH Q8H PRN PRN Reason: Nausea and Vomiting Oxycodone HCl (Oxycodone Hcl Immed Release 5 Mg Tablet) 5 mg PO Q6H PRN PRN Reason: Pain, Severe (Pain Scale 7-10) Pharmacy Consult (Consult Rx Perform Med Rec) 1 each MISCELLANE ONCE PRN PRN Reason: Consult order Sodium Chloride (0.9 % Sodium Chloride Flush 3 Ml Syringe) 3 ml IVFLUSH QSHIFT ON LICENSE OF [facility] Last Admin: 05/10/21 08:36 Dose: 3 ml Documented by: Home Medications Medication Instructions Recorded Confirmed Last Taken Type folic acid 1 mg tablet 1 tab PO DAILY 05/10/21 05/10/21 Unknown History methotrexate sodium 2.5 mg tablet 5 tab PO QWEEK 05/10/21 05/10/21 Unknown History Physical Exam Vital Signs: Vital Signs: Last Vital Signs Temp 97.9 F 05/10/21 07:21 Pulse 66 05/10/21 07:21 Resp 16 05/10/21 07:21 BP 156/67 H 05/10/21 07:21 Pulse Ox 97 05/10/21 07:21 Body Mass Index 16.9 Const: Other: Appears frail, communicative General: comfortable and no acute distress Orientation/consciousness: patient oriented x3 Neck: Neck: Yes no lymphadenopathy Resp: Auscultation: clear to auscultation bilaterally Cardio: Rhythm: regular rhythm GI: Palpation (GI): Soft to palpation, nontender and no guarding Neuro: Other: Right-sided hemiparesis, has left facial droop General: patient oriented x3 Extrem: Other: Has contractures of the fingers Results Labs Result diagrams: 05/10/21 06:28 05/10/21 06:28 Labs: Abnormal lab results 05/09/21 05/09/21 05/10/21 Range/Units 18:59 18:59 01:22 WBC 3.1 L (4.8-10.8) X10*3/uL RBC 3.69 L D (4.20-5.50) X10*6/uL Hgb 10.6 L D (12.0-16.0) g/dl Hct 33.7 L D (37-47) % RDW 22.5 H (11.0-16.0) % MPV 9.1 L (9.4-12.3) fL Neut % (Auto) (45-73) % Lymph % (Auto) (20-40) % Lucas % (Auto) (2-11) % Absolute Neuts (auto) (2.0-8.3) X10*3/uL Neutrophils % (Manual) 1 L (45-73) % Band Neutrophils % 0 L (3-5) % Lymphocytes % (Manual) 75 H (20-40) % Monocytes % (Manual) 16 H (2-11) % Basophils % (Manual) 3 H (0-1) % PTT (Heparin Protocol) 30.3 L (53-77.9) SEC Sodium 134 L (135-145) mmol/L Anion Gap (12-20) Calcium (8.4-10.2) mg/dL Albumin 3.2 L D (3.5-5.0) g/dL 05/10/21 05/10/21 Range/Units 06:28 06:28 WBC 2.3 L (4.8-10.8) X10*3/uL RBC 3.50 L (4.20-5.50) X10*6/uL Hgb 10.0 L (12.0-16.0) g/dl Hct 32.3 L (37-47) % RDW 22.5 H (11.0-16.0) % MPV (9.4-12.3) fL Neut % (Auto) 1.8 L (45-73) % Lymph % (Auto) 69.7 H (20-40) % Lucas % (Auto) 23.8 H (2-11) % Absolute Neuts (auto) 0.0 L (2.0-8.3) X10*3/uL Neutrophils % (Manual) (45-73) % Band Neutrophils % (3-5) % Lymphocytes % (Manual) (20-40) % Monocytes % (Manual) (2-11) % Basophils % (Manual) (0-1) % PTT (Heparin Protocol) (53-77.9) SEC Sodium (135-145) mmol/L Anion Gap 10 L (12-20) Calcium 8.3 L (8.4-10.2) mg/dL Albumin (3.5-5.0) g/dL Short CBC 05/09/21 05/10/21 Range/Units 18:59 06:28 WBC 3.1 L 2.3 L (4.8-10.8) X10*3/uL Hgb 10.6 L D 10.0 L (12.0-16.0) g/dl Hct 33.7 L D 32.3 L (37-47) % Plt Count 216 D 205 (160-400) X10*3/uL BMP 05/09/21 05/10/21 18:59 06:28 Sodium 134 L 135 Potassium 4.6 4.2 Chloride 102 104 Carbon Dioxide 25 25 BUN 12 11 Creatinine 0.66 0.67 Calcium 8.6 D 8.3 L Liver Function 05/09/21 Range/Units 18:59 Total Bilirubin 0.4 (0.0-1.0) mg/dL AST 18 (5-31) U/L ALT 11 (0-31) U/L Alkaline Phosphatase 84 (39-117) U/L Albumin 3.2 L D (3.5-5.0) g/dL Urine 05/10/21 Range/Units 00:31 Urine Color YELLOW Urine Appearance CLEAR Urine pH 7.0 (5.0-8.0) Ur Specific [place] 1.010 (1.005-1.025) Urine Protein NEG (NEG-TRACE) MG/DL Urine Glucose (UA) NEG (NEG) MG/DL All other labs normal. 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 She has collateralization however from the gastroduodenal vessel so this occlusion is likely chronic. Furthermore, she did not present with any acidosis. Her abdominal exam is currently benign. She does not have any tenderness at this point. I agree anticoagulation at this time. It is unlikely that this is an acute occlusion however. If she has adequate collateralization from chronic disease, it is unlikely for her to present with acute ischemia. She appears frail and not be a candidate for mesenteric bypass for long-term treatment. I have discussed the above with the vascular surgeon Dr. Villarreal.. Procedures Date of Service Date of Service: 05/10/21
[2021-05-10] MEDS: amLODIPine Besylate 2.5 MG TABLET PO (09:27)
[2021-05-10] MEDS: Folic Acid 1 MG TABLET PO (09:27)
--- NOTE | 2021-05-10 09:30 | PC.NURSE ---
pt seen by dr. johns aware of plan of care.
--- NOTE | 2021-05-10 09:35 | PC.NURSE ---
dr. johns states that pt is npo at this time, pt is aware.
--- NOTE | 2021-05-10 10:06 | PM.CNGS ---
History of Present Illness Consult details Consult date: 05/10/21 Reason for consult: abdominal pain Narrative: Pleasant 76-year-old female with a history a CVA presented to the emergency room yesterday evening with acute onset abdominal pain. She noted it was left lower quadrant for the most part. She was subsequently worked up with CT angiogram. There was concern of an SMA occlusion. Upon discussion with her this morning her abdomen is significantly better. She is hungry. She wants to know when she can return home. She now presents to us for vascular evaluation. Review of Systems Review of Systems: Yes all other systems are reviewed and are negative Constitutional: Constitutional: Reports anorexia and Reports weakness ENT: Reports Normal hearing present Cardiovascular: Cardiovascular: Denies chest pain, Denies chest pain at rest, Denies chest pain with activity and Denies pedal edema Respiratory: Respiratory: Denies cough Gastrointestinal: Gastrointestinal: Reports abdominal pain Musculoskeletal: Musculoskeletal: Denies abnormal gait, Denies muscle cramps and Denies radiating pain into limb Integumentary/Breasts: Skin/Breast: Denies skin ulcer and Denies wounds Neurologic: Reports Normal hearing present, Denies abnormal gait and Reports weakness Psychiatric: Psychiatric: Reports no additional psychiatric complaints PMF Past Medical History Medical History CVA (cerebral vascular accident) Essential hypertension Hypertension Proteinuria Pure hypercholesterolemia Rheumatoid arthritis Squamous cell carcinoma of nose Family History Family History Mother Heart problem Father Asthma Surgical History Surgical History History of appendectomy Social History Social History Household Members: Spouse Housing: House Do you presently have visiting nurse or other home services: No Alcohol intake: former Patient Tobacco Use Status: Never used Tobacco e-Cigarette/Vaping Use: Never Used Second Hand Smoke Exposure: No Advance Directives: No Advance Directives Information Provided: No service: No Current occupational status: retired [employer] Allergies Allergy/AdvReac Type Severity Reaction Status Date / Time No Known Allergies Allergy Unknown Verified 03/07/21 13:27 [No Known Allergies*] Active Medications: Current Medications Acetaminophen (Acetaminophen 325 Mg Tablet) 650 mg PO Q6H PRN PRN Reason: Pain, Mild (Pain Scale 1-3) Amlodipine Besylate (Amlodipine Besylate 2.5 Mg Tablet) 2.5 mg PO DAILY [facility]; Protocol Last Admin: 05/10/21 09:27 Dose: 2.5 mg Documented by: Docusate Sodium (Docusate Sodium 100 Mg Capsule) 100 mg PO DAILY PRN PRN Reason: Constipation Folic Acid (Folic Acid 1 Mg Tablet) 1 mg PO DAILY [facility] Last Admin: 05/10/21 09:27 Dose: 1 mg Documented by: Heparin Sodium (Porcine) (Heparin Sodium,Porcine 5,000 Unit/Ml Vial) 1,600 unit 40 unit/kg (1600 unit) IVPUSH PROTOCOL BOLUS PRN; Protocol PRN Reason: 40 unit/kg - Heparin Protocol Heparin Sodium (Porcine) (Heparin Sodium,Porcine 5,000 Unit/Ml Vial) 3,300 unit 80 unit/kg (3300 unit) IVPUSH PROTOCOL BOLUS PRN; Protocol PRN Reason: 80 unit/kg - Heparin Protocol Heparin Sodium/Sodium Chloride () 25,000 unit in 250 mls @ 0 mls/hr IVCONT .Q0M [facility]; Protocol Last Admin: 05/10/21 01:31 Dose: 14 units/kg/hr, 5.72 mls/hr Documented by: Methotrexate (Methotrexate Sodium 2.5 Mg Tablet) 12.5 mg PO [facility] Ondansetron HCl (Ondansetron Hcl 4 Mg/2 Ml Vial) 4 mg IVPUSH Q8H PRN PRN Reason: Nausea and Vomiting Oxycodone HCl (Oxycodone Hcl Immed Release 5 Mg Tablet) 5 mg PO Q6H PRN PRN Reason: Pain, Severe (Pain Scale 7-10) Pharmacy Consult (Consult Rx Perform Med Rec) 1 each MISCELLANE ONCE PRN PRN Reason: Consult order Sodium Chloride (0.9 % Sodium Chloride Flush 3 Ml Syringe) [facility] Last Admin: 05/10/21 08:36 Dose: 3 ml Documented by: Home Medications Medication Instructions Recorded Confirmed Last Taken Type folic acid 1 mg tablet 1 tab PO DAILY 05/10/21 05/10/21 Unknown History methotrexate sodium 2.5 mg tablet 5 tab PO QWEEK 05/10/21 05/10/21 Unknown History Physical Exam Vital Signs: Vital Signs: Last Vital Signs Temp 98.1 F 05/10/21 09:25 Pulse 68 05/10/21 09:27 Resp 18 05/10/21 09:25 BP 156/69 H 05/10/21 09:27 Pulse Ox 97 05/10/21 09:25 Body Mass Index 16.9 Const: General: cooperative, healthy appearing and comfortable Orientation/consciousness: oriented to person, oriented to place and oriented to time HENMT: Head: Yes normal to inspection Neck: Neck: Yes normal visual inspection Carotids: no bruits Chest: Chest palpation & inspection: normal inspection of the chest Resp: Effort & Inspection: normal respiratory effort and able to speak in complete sentences Auscultation: clear to auscultation bilaterally, no crackles, no rales, no rhonchi and no wheezes Cardio: Rate: regular rate Rhythm: regular rhythm Heart sounds: S1 normal heart sound present and S2 normal heart sound present Bruits: no carotid bruits Peripheral pulses: Peripheral pulses 2+ throughout GI: Inspection: Yes normal to inspection Palpation (GI): No Rebound tenderness present Auscultation: Hyperactive bowel sounds present Rectal Exam - Female: deferred Skin: Wounds: no wounds Hair: normal Neuro: General: oriented to person, oriented to place and oriented to time Cranial nerves: Yes CN's II-XII intact bilaterally and Yes Normal hearing present Cognition (Neuro): normal cognition Motor exam (neuro): 5/5 motor strength present throughout Extrem: Other: venous exam: No significant superficial varicosities or spider telangiectasias, minimal edema General: No clubbing, No cyanosis and No edema Psych: Appearance: grossly normal Mental Status: mental status grossly normal Speech and movement: Normal speech and movement present Results Labs Result diagrams: 05/10/21 06:28 05/10/21 06:28 Labs: Abnormal lab results 05/09/21 05/09/21 05/10/21 Range/Units 18:59 18:59 01:22 WBC 3.1 L (4.8-10.8) X10*3/uL RBC 3.69 L D (4.20-5.50) X10*6/uL Hgb 10.6 L D (12.0-16.0) g/dl Hct 33.7 L D (37-47) % RDW 22.5 H (11.0-16.0) % MPV 9.1 L (9.4-12.3) fL Neut % (Auto) (45-73) % Lymph % (Auto) (20-40) % [place] % (Auto) (2-11) % Absolute Neuts (auto) (2.0-8.3) X10*3/uL Neutrophils % (Manual) 1 L (45-73) % Band Neutrophils % 0 L (3-5) % Lymphocytes % (Manual) 75 H (20-40) % Monocytes % (Manual) 16 H (2-11) % Basophils % (Manual) 3 H (0-1) % PTT (Heparin Protocol) 30.3 L (53-77.9) SEC Sodium 134 L (135-145) mmol/L Anion Gap (12-20) Calcium (8.4-10.2) mg/dL Albumin 3.2 L D (3.5-5.0) g/dL 05/10/21 05/10/21 Range/Units 06:28 06:28 WBC 2.3 L (4.8-10.8) X10*3/uL RBC 3.50 L (4.20-5.50) X10*6/uL Hgb 10.0 L (12.0-16.0) g/dl Hct 32.3 L (37-47) % RDW 22.5 H (11.0-16.0) % MPV (9.4-12.3) fL Neut % (Auto) 1.8 L (45-73) % Lymph % (Auto) 69.7 H (20-40) % [place] % (Auto) 23.8 H (2-11) % Absolute Neuts (auto) 0.0 L (2.0-8.3) X10*3/uL Neutrophils % (Manual) (45-73) % Band Neutrophils % (3-5) % Lymphocytes % (Manual) (20-40) % Monocytes % (Manual) (2-11) % Basophils % (Manual) (0-1) % PTT (Heparin Protocol) (53-77.9) SEC Sodium (135-145) mmol/L Anion Gap 10 L (12-20) Calcium 8.3 L (8.4-10.2) mg/dL Albumin (3.5-5.0) g/dL Short CBC 10/19/21 10/20/21 Range/Units 18:59 06:28 WBC 3.1 L 2.3 L (4.8-10.8) X10*3/uL Hgb 10.6 L D 10.0 L (12.0-16.0) g/dl Hct 33.7 L D 32.3 L (37-47) % Plt Count 216 D 205 (160-400) X10*3/uL BMP 05/09/21 05/10/21 18:59 06:28 Sodium 134 L 135 Potassium 4.6 4.2 Chloride 102 104 Carbon Dioxide 25 25 BUN 12 11 Creatinine 0.66 0.67 Calcium 8.6 D 8.3 L Liver Function 05/09/21 Range/Units 18:59 Total Bilirubin 0.4 (0.0-1.0) mg/dL AST 18 (5-31) U/L ALT 11 (0-31) U/L Alkaline Phosphatase 84 (39-117) U/L Albumin 3.2 L D (3.5-5.0) g/dL Urine 05/10/21 Range/Units 00:31 Urine Color YELLOW Urine Appearance CLEAR Urine pH 7.0 (5.0-8.0) Ur Specific [place] 1.010 (1.005-1.025) Urine Protein NEG (NEG-TRACE) MG/DL Urine Glucose (UA) NEG (NEG) MG/DL All other labs normal. 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 There was also concern a nutcracker compression. This all appears more chronic in nature as it is well collateralized and there is immediate reconstitution. I do not believe this is the source of her abdominal discomfort. She appears to be well perfused. That being said she does have a retrievable filter. There may be a question of a hypercoagulable state in the past. I do think she would benefit from formal anticoagulation if tolerated. Continue abdominal pain workup per General surgery, and would advance diet once stable. Will continue to monitor this patient with you. Thank you for allowing us to assist in her care. If there are any questions or concerns please do not hesitate to contact us. Procedures Date of Service Date of Service: 05/10/21
[2021-05-10] MEDS: Docusate Sodium 100 MG CAPSULE PO (10:45)
[2021-05-10] MEDS: oxyCODONE HCl Immed Release 5 MG TABLET PO (10:45)
[2021-05-10] MEDS: Acetaminophen 325 MG TABLET 650 MG PO (10:45)
--- NOTE | 2021-05-10 10:54 | MHC.CM.PN ---
Addendum entered by Mely Pang 05/10/21 11:09: Patient received Andriy & Andriy vaccine on 10/07. Original Note: Attempted to meet with patient in regards to discharge planning. Nursing care currently being provided. Attempted to speak with patient's , Vicente via telephone at [phone]. Left message explaining IMM and requesting return telephone call. Case management assessment completed using medical record. Patient lives with and is active with [facility]. Patient has been to [facility] and [facility] for short term rehab. Copy of HCP obtained from [facility]. Anticiapte physical therapy eval for home safety will be needed when patient is medically stable. Continue to monitor for d/c needs.
--- NOTE | 2021-05-10 11:33 | PC.NURSE ---
rn to rn report given to oneil. pt to be transported to room 376
[2021-05-10 13:52] LABS: PTT Heparin Drip 47.6 SEC (53-77.9)
--- NOTE | 2021-05-10 14:10 | PM.EVENT ---
Event Note Date of Service: 05/10/21 Event Note: Patient examined chart reviewed. Exam essentially unchanged from this a.m. save the fact that the patient is pain free at this time. Last dose of analgesics was approximately 20 hours ago. She continues on the heparin drip and tolerated lunch without issue. Vascular notes reviewed appreciate input. Will continue on heparin drip overnight, check routine labs in the a.m. and await Dr. Villarreal's input
[2021-05-10] MEDS: Heparin Sodium,Porcine 5,000 UNIT/ML VIAL 1600 UNIT IVPUSH (14:25)
--- NOTE | 2021-05-10 14:32 | PC.NURSE ---
1200 heparin gtt infusing at 14u/kg/hr 1400 PTTHD is 47.0 Rate increased to 16u/kg/hr rate is 6.53 ml/hr. Bolus dose given 1600u
[2021-05-10 20:17] LABS: PTT Heparin Drip 61.6 SEC (53-77.9)
[2021-05-11] VITALS (8 sets, daily range): BP systolic 132–153; BP diastolic 61–69; PULSE 64–76; RESP 14–66; TEMP 36.7–37.7; O2SAT 95–97; BMI 16.9
[2021-05-11 02:23] LABS: PTT Heparin Drip 55.5 SEC (53-77.9)
[2021-05-11 06:51] LABS: Basophils Percent Auto 1.6 % (0-2); Eosinophils Absolute Auto 0.1 X10*3/uL (0.0-0.4); Eosinophils Percent Auto 3.9 % (0-4); Hematocrit 29.7 % (37-47); Hemoglobin 9.2 g/dl (12.0-16.0); Lymphocytes Absolute Auto 1.9 X10*3/uL (1.2-4.9); Lymphocytes Percent Auto 72.9 % (20-40); MANUAL DIFF FLAG SCAN; Mean Corpuscular Hemoglobin 28.2 pg (27.0-33.0); Mean Corpuscular Volume 91.1 fL (80-98); Mean Platelet Volume 9.8 fL (9.4-12.3); Monocytes Absolute Auto 0.4 X10*3/uL (0.1-1.2); Monocytes Percent Auto 16.5 % (2-11); Neutrophils Absolute Auto 0.1 X10*3/uL (2.0-8.3); Neutrophils Percent Auto 5.1 % (45-73); Platelet Count 230 X10*3/uL (160-400); Red Blood Count 3.26 X10*6/uL (4.20-5.50); Red Cell Distribution Width 22.4 % (11.0-16.0); SCAN SMEAR FLAG 1; White Blood Count 2.6 X10*3/uL (4.8-10.8)
[2021-05-11 06:54] LABS: PTT Heparin Drip 51.5 SEC (53-77.9)
[2021-05-11 07:12] LABS: Alanine Aminotransferase 11 U/L (0-31); Albumin Level 2.6 g/dL (3.5-5.0); Alkaline Phosphatase 70 U/L (39-117); Anion Gap 10 (12-20); Aspartate Amino Transferase 18 U/L (5-31); Bilirubin Total 0.4 mg/dL (0.0-1.0); Blood Urea Nitrogen 12 mg/dL (9-16); Calcium 8.6 mg/dL (8.4-10.2); Carbon Dioxide 25 mmol/L (22-29); Chloride 104 mmol/L (96-108); Creatinine Clr Calc Pharmacy 46.1; Estimated Glomerular Filt Rate > 60; Glucose Fasting 85 mg/dL (60-99); Potassium 4.6 mmol/L (3.3-5.1); Sodium 134 mmol/L (135-145); Total Protein 6.5 g/dL (6.5-8.0)
--- NOTE | 2021-05-11 07:53 | P.PNGS_ITS ---
Subjective Subjective Date of Service: 05/11/21 Interval history: Denies abdominal pain No GI complaints No events reported Physical Exam Vital Signs: Vital Signs: Last Vital Signs Temp 98.4 F 05/11/21 07:08 Pulse 76 05/11/21 07:08 Resp 16 05/11/21 07:08 BP 135/63 05/11/21 07:08 Pulse Ox 96 05/11/21 07:08 Body Mass Index 16.9 Chemistry 05/09/21 05/10/21 05/11/21 18:59 06:28 06:17 Sodium 134 L 135 134 L Potassium 4.6 4.2 4.6 Carbon Dioxide 25 25 25 BUN 12 11 12 Creatinine 0.66 0.67 0.69 Calcium 8.6 D 8.3 L 8.6 Hematology 05/09/21 05/10/21 05/11/21 18:59 06:28 06:17 WBC 3.1 L 2.3 L 2.6 L Hgb 10.6 L D 10.0 L 9.2 L Plt Count 216 D 205 230 Urinalysis 05/10/21 00:31 Urine Color YELLOW Urine Appearance CLEAR Urine pH 7.0 Ur Specific [place] y 1.010 Urine Protein NEG Urine Glucose (UA) NEG Urine Ketones NEG Urine Blood NEG Urine Nitrite NEG Ur Leukocyte [place] ase NEG Const: Other: Appears frail but communicative General: comfortable and no acute distress Resp: Effort & Inspection: normal respiratory effort Cardio: Rhythm: regular rhythm GI: Inspection: No distended Palpation (GI): Soft to palpation, not firm, nontender and no guarding Procedures Date of Service Date of Service: 05/11/21 Progress Note: A&P Assessment and plan (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 Assessment and Plan: Feels much better Denies any abdominal pain S MA occlusion likely chronic Agree with anticoagulation Fall Risk Details Current Medications: Current Medications Acetaminophen (Acetaminophen 325 Mg Tablet) 650 mg PO Q6H PRN PRN Reason: Pain, Mild (Pain Scale 1-3) Last Admin: 05/10/21 10:45 Dose: 650 mg Documented by: Amlodipine Besylate (Amlodipine Besylate 2.5 Mg Tablet) 2.5 mg PO DAILY [facility]; Protocol Last Admin: 05/10/21 09:27 Dose: 2.5 mg Documented by: Docusate Sodium (Docusate Sodium 100 Mg Capsule) 100 mg PO DAILY PRN PRN Reason: Constipation Last Admin: 05/10/21 10:45 Dose: 100 mg Documented by: Folic Acid (Folic Acid 1 Mg Tablet) 1 mg PO DAILY [facility] Last Admin: 05/10/21 09:27 Dose: 1 mg Documented by: Heparin Sodium (Porcine) (Heparin Sodium,Porcine 5,000 Unit/Ml Vial) 1,600 unit 40 unit/kg (1600 unit) IVPUSH PROTOCOL BOLUS PRN; Protocol PRN Reason: 40 unit/kg - Heparin Protocol Last Admin: 05/10/21 14:25 Dose: 1,600 unit Documented by: Heparin Sodium (Porcine) (Heparin Sodium,Porcine 5,000 Unit/Ml Vial) 3,300 unit 80 unit/kg (3300 unit) IVPUSH PROTOCOL BOLUS PRN; Protocol PRN Reason: 80 unit/kg - Heparin Protocol Heparin Sodium/Sodium Chloride () 25,000 unit in 250 mls @ 0 mls/hr IVCONT .Q0M [facility]; Protocol Last Titration: 05/10/21 20:20 Dose: 16 units/kg/hr, 6.53 mls/hr Documented by: Methotrexate (Methotrexate Sodium 2.5 Mg Tablet) 12.[address] [facility] Ondansetron HCl (Ondansetron Hcl 4 Mg/2 Ml Vial) 4 mg IVPUSH Q8H PRN PRN Reason: Nausea and Vomiting Oxycodone HCl (Oxycodone Hcl Immed Release 5 Mg Tablet) 5 mg PO Q6H PRN PRN Reason: Pain, Severe (Pain Scale 7-10) Last Admin: 05/10/21 10:45 Dose: 5 mg Documented by: Pharmacy Consult (Consult Rx Perform Med Rec) 1 each MISCELLANE ONCE PRN PRN Reason: Consult order Sodium Chloride (0.9 % Sodium Chloride Flush 3 Ml Syringe) 3 ml IVFLUSH QSHIFT [facility] Last Admin: 05/11/21 00:05 Dose: Not Given Documented by: Time Spent With Patient Time: Total time spent is greater than 50% in coordination of care (as documented) at patient's floor/unit and/or counseling patient: Time with patient: 15 - 24 minutes Quality Stroke Does the patient have a stroke diagnosis?: No VTE Prior VTE?: No VTE Risk Level:: Medical - moderate - high VTE Device Contraindication: Treatment Not Tolerated VTE Drug Contraindication: N/A - Med Ordered
[2021-05-11 08:09] LABS: SLIDE REVIEW VERIFIED
[2021-05-11] MEDS: amLODIPine Besylate 2.5 MG TABLET PO (08:51)
[2021-05-11] MEDS: Folic Acid 1 MG TABLET PO (08:51)
[2021-05-11] MEDS: oxyCODONE HCl Immed Release 5 MG TABLET PO (08:59)
--- NOTE | 2021-05-11 10:55 | PC.NURSE ---
Skin assessment completed. Patient has blanchable redness to coccyx/buttocks. Barrier cream applied. Patient has very dry skin lotion applied. No other skin issues at this time.
[2021-05-11] MEDS: Morphine Sulfate 2 MG/ML CARTRIDGE IVPUSH (11:10)
[2021-05-11 11:34] LABS: Lactic Acid 0.8 mmol/L (0.5-2.0)
--- NOTE | 2021-05-11 12:04 | P.PNIM_ITS ---
Subjective Subjective Date of Service: 05/11/21 Physical Exam Vital Signs: Vital Signs: Last Vital Signs Temp 98.5 F 05/11/21 11:28 Pulse 64 05/11/21 11:28 Resp 15 05/11/21 11:28 BP 132/61 05/11/21 11:28 Pulse Ox 96 05/11/21 11:28 Body Mass Index 16.9 Objective Data Active Medications Acetaminophen (Acetaminophen 325 Mg Tablet) 650 mg PO Q6H PRN PRN Reason: Pain, Mild (Pain Scale 1-3) Last Admin: 05/10/21 10:45 Dose: 650 mg Documented by: AVA Amlodipine Besylate (Amlodipine Besylate 2.5 Mg Tablet) 2.5 mg PO DAILY [facility]; Protocol Last Admin: 05/11/21 08:51 Dose: 2.5 mg Documented by: LUCAS Docusate Sodium (Docusate Sodium 100 Mg Capsule) 100 mg PO DAILY PRN PRN Reason: Constipation Last Admin: 05/10/21 10:45 Dose: 100 mg Documented by: AVA Folic Acid (Folic Acid 1 Mg Tablet) 1 mg PO DAILY [facility] Last Admin: 05/11/21 08:51 Dose: 1 mg Documented by: LUCAS Heparin Sodium (Porcine) (Heparin Sodium,Porcine 5,000 Unit/Ml Vial) 1,600 unit 40 unit/kg (1600 unit) IVPUSH PROTOCOL BOLUS PRN; Protocol PRN Reason: 40 unit/kg - Heparin Protocol Last Admin: 05/10/21 14:25 Dose: 1,600 unit Documented by: YULIA Heparin Sodium (Porcine) (Heparin Sodium,Porcine 5,000 Unit/Ml Vial) 3,300 unit 80 unit/kg (3300 unit) IVPUSH PROTOCOL BOLUS PRN; Protocol PRN Reason: 80 unit/kg - Heparin Protocol Heparin Sodium/Sodium Chloride () 25,000 unit in 250 mls @ 0 mls/hr IVCONT .Q0M [facility]; Protocol Last Titration: 05/10/21 20:20 Dose: 16 units/kg/hr, 6.53 mls/hr Documented by: SAQIB Cosigned by: HERMAN Methotrexate (Methotrexate Sodium 2.5 Mg Tablet) 12.5 mg PO [facility] Morphine Sulfate (Morphine Sulfate 2 Mg/Ml Cartridge) 2 mg IVPUSH Q3H PRN; Protocol PRN Reason: Pain, Severe (Pain Scale 7-10) Last Admin: 05/11/21 11:10 Dose: 2 mg Documented by: LUCAS Ondansetron HCl (Ondansetron Hcl 4 Mg/2 Ml Vial) 4 mg IVPUSH Q8H PRN PRN Reason: Nausea and Vomiting Oxycodone HCl (Oxycodone Hcl Immed Release 5 Mg Tablet) 5 mg PO Q6H PRN PRN Reason: Pain, Severe (Pain Scale 7-10) Last Admin: 05/11/21 08:59 Dose: 5 mg Documented by: LUCAS Pharmacy Consult (Consult Rx Perform Med Rec) 1 each MISCELLANE ONCE PRN PRN Reason: Consult order Sodium Chloride (0.9 % Sodium Chloride Flush 3 Ml Syringe) 3 ml IVFLUSH QSHIFT [facility] Last Admin: 05/11/21 07:54 Dose: Not Given Documented by: LUCAS Non-Admin Reason: IV Running Labs CBC & Chem 7: 05/11/21 06:17 05/11/21 06:17 Labs: Laboratory Results - last 24 hr 05/10/21 05/10/21 05/11/21 13:38 20:01 02:11 MCV MCH MCHC RDW Plt Count MPV Immature Gran % (Auto) Neut % (Auto) Lymph % (Auto) [place] % (Auto) Eos % (Auto) Baso % (Auto) Lymph # (Auto) [place] # (Auto) Eos # (Auto) Baso # (Auto) Abs Immat Gran (auto) Absolute Neuts (auto) Absolute Nucleated RBC Nucleated RBC % (auto) Smear Tech's Comments PTT (Heparin Protocol) 47.6 L D 61.6 D 55.5 Anion Gap Estim Creat Clear Calc Estimated GFR Fasting Glucose Lactic Acid Calcium Total Bilirubin AST ALT Alkaline Phosphatase Total Protein Albumin 05/11/21 05/11/21 05/11/21 06:17 06:17 06:17 MCV 91.1 MCH 28.2 MCHC 31.0 RDW 22.4 H Plt Count 230 MPV 9.8 Immature Gran % (Auto) 0.0 Neut % (Auto) 5.1 L Lymph % (Auto) 72.9 H [place] % (Auto) 16.5 H Eos % (Auto) 3.9 Baso % (Auto) 1.6 Lymph # (Auto) 1.9 [place] # (Auto) 0.4 Eos # (Auto) 0.1 Baso # (Auto) 0.0 Abs Immat Gran (auto) 0.00 Absolute Neuts (auto) 0.1 L Absolute Nucleated RBC 0.000 Nucleated RBC % (auto) 0.0 Smear Tech's Comments VERIFIED PTT (Heparin Protocol) 51.5 L Anion Gap 10 L Estim Creat Clear Calc 46.1 Estimated GFR > 60 Fasting Glucose 85 Lactic Acid Calcium 8.6 Total Bilirubin 0.4 AST 18 ALT 11 Alkaline Phosphatase 70 Total Protein 6.5 Albumin 2.6 L 05/11/21 11:17 MCV MCH MCHC RDW Plt Count MPV Immature Gran % (Auto) Neut % (Auto) Lymph % (Auto) [place] % (Auto) Eos % (Auto) Baso % (Auto) Lymph # (Auto) [place] # (Auto) Eos # (Auto) Baso # (Auto) Abs Immat Gran (auto) Absolute Neuts (auto) Absolute Nucleated RBC Nucleated RBC % (auto) Smear Tech's Comments PTT (Heparin Protocol) Anion Gap Estim Creat Clear Calc Estimated GFR Fasting Glucose Lactic Acid 0.8 Calcium Total Bilirubin AST ALT Alkaline Phosphatase Total Protein Albumin Microbiology Microbiology Results: Microbiology 05/10/21 00:36 Blood Culture - Preliminary Blood - Venous No growth after 24 hours. 05/10/21 00:36 Blood Culture - Preliminary Blood - Venous No growth after 24 hours. 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 Abdominal pain Seen by both General surgery and vascular surgery. Both notes appreciated. Has been on heparin drip since admission, pain returned this morning however exam benign. Discussed with Dr. Baez; agrees with exam. Lactate drawn... 0.8. Will discuss continuation of heparin with vascular. Pain fairly well controlled 2. Hypertension - stable - continue amlodipine 2.5 3.CVA;old. No acute issues - does not appear to be on aspirin or high-dose statins- unclear etiology. Defer to PCP DVT prophylaxis: Heparin GTT Quality Stroke Does the patient have a stroke diagnosis?: No VTE Prior VTE?: No VTE Risk Level:: Medical - moderate - high VTE Device Contraindication: Treatment Not Tolerated VTE Drug Contraindication: N/A - Med Ordered
--- NOTE | 2021-05-11 13:10 | P.CDIC_ITS ---
CDI Concurrent Query Documentation Clarification: PHYSICIAN'S DOCUMENTATION REQUEST Date of Query: 05/11/21 1310 Patient Name: Michelle Infante Admit Date: 05/10/21 Dear Doctor, A review of the medical record indicates additional documentation may be needed. Please review below and update the documentation accordingly. Risk Factors/Clinical Indicators/Treatments BMI 16.9 Albumin 2.6 If possible, please provide an associated diagnosis related to the abnormal BMI, such as: For a BMI <= 19: * Underweight * Weight loss * Cachexia * Anorexia * Malnutrition, mild, moderate or severe Or: * BMI is not significant * Other (please specify) * Unable to determine Use of terms such as suspected, likely, concern for, or probable (associated with a specific diagnosis that is being evaluated, monitored, or treated as if it exists) are acceptable and can be coded in the inpatient setting, when documented at the time of discharge. Thank you, Mis Arreaga [facility], CDIS Extension: [phone] Please use your independent medical judgment in providing your response. THIS QUERY IS PART OF THE PERMANENT MEDICAL RECORD Provider Response: Other Other Diagnosis: Weight loss likely multifactorial unable to discern single cause
[2021-05-11] MEDS: Heparin Sodium,Porcine/1/2NS 25,000 UNIT/250 ML IV.SOLN 6.53 UNIT IVCONT (17:44)
[2021-05-11 18:08] LABS: PTT Heparin Drip 48.1 SEC (53-77.9)
[2021-05-11] MEDS: Heparin Sodium,Porcine 5,000 UNIT/ML VIAL 1600 UNIT IVPUSH (18:23)
--- NOTE | 2021-05-11 18:30 | PC.NURSE ---
At 0617 pt PTTHD was subtherapeutic at 51.5. Pt was due for new bag of Heparin at 1730 and noted am lab was subtherapeutic. 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 stat PTTHD ordered and drawn at 1752 results remained subtherapeutic at 48.1. bolus given per protocol and dose adjusted by increase of 2units/kg/hr. Pt now running at 16units/kg/hr. next PTTHD due at 2330. ordered per protocol. will continue to monitor and assess.
[2021-05-11 23:48] LABS: PTT Heparin Drip > 200.0 SEC (53-77.9)
[2021-05-12 01:04] LABS: PTT Heparin Drip 42.8 SEC (53-77.9)
[2021-05-12 04:00] VITALS: RESP 20
[2021-05-12 06:04] LABS: Basophils Percent Auto 0.9 % (0-2); Eosinophils Absolute Auto 0.2 X10*3/uL (0.0-0.4); Eosinophils Percent Auto 5.4 % (0-4); Hematocrit 29.7 % (37-47); Hemoglobin 9.2 g/dl (12.0-16.0); Lymphocytes Absolute Auto 2.2 X10*3/uL (1.2-4.9); Lymphocytes Percent Auto 69.4 % (20-40); MANUAL DIFF FLAG SCAN; Mean Corpuscular Hemoglobin 28.6 pg (27.0-33.0); Mean Corpuscular Volume 92.2 fL (80-98); Mean Platelet Volume 9.3 fL (9.4-12.3); Monocytes Absolute Auto 0.5 X10*3/uL (0.1-1.2); Monocytes Percent Auto 14.2 % (2-11); Neutrophils Absolute Auto 0.3 X10*3/uL (2.0-8.3); Neutrophils Percent Auto 10.1 % (45-73); Platelet Count 216 X10*3/uL (160-400); Red Blood Count 3.22 X10*6/uL (4.20-5.50); Red Cell Distribution Width 22.5 % (11.0-16.0); SCAN SMEAR FLAG 1; White Blood Count 3.2 X10*3/uL (4.8-10.8)
[2021-05-12 06:11] LABS: PTT Heparin Drip 45.8 SEC (53-77.9)
[2021-05-12 06:25] LABS: Alanine Aminotransferase 7 U/L (0-31); Albumin Level 2.7 g/dL (3.5-5.0); Alkaline Phosphatase 75 U/L (39-117); Anion Gap 9 (12-20); Aspartate Amino Transferase 16 U/L (5-31); Bilirubin Total < 0.2 mg/dL (0.0-1.0); Blood Urea Nitrogen 10 mg/dL (9-16); Calcium 8.8 mg/dL (8.4-10.2); Carbon Dioxide 24 mmol/L (22-29); Chloride 107 mmol/L (96-108); Creatinine Clr Calc Pharmacy 47.4; Estimated Glomerular Filt Rate > 60; Glucose Random 100 mg/dL (60-115); Potassium 4.3 mmol/L (3.3-5.1); Sodium 136 mmol/L (135-145); Total Protein 6.5 g/dL (6.5-8.0)
[2021-05-12 06:35] LABS: SLIDE REVIEW VERIFIED
[2021-05-12] MEDS: Heparin Sodium,Porcine 5,000 UNIT/ML VIAL 1600 UNIT IVPUSH (06:45)
[2021-05-12 07:55] VITALS: BP 179/84; PULSE 73; RESP 18; TEMP 36.3; O2SAT 97
[2021-05-12] MEDS: amLODIPine Besylate 2.5 MG TABLET PO (08:17)
[2021-05-12] MEDS: Folic Acid 1 MG TABLET PO (08:17)
[2021-05-12 08:57] VITALS: PULSE 73; O2SAT 97
--- NOTE | 2021-05-12 10:45 | HO.VASCPN ---
Subjective Subjective Date of Service: 05/12/21 Patient reports: no new complaints, feels better and tolerating a regular diet Interval history: Very pleasant 76-year-old female for follow-up regarding SMA occlusion. She appears to be doing significantly better in her hospital bed this morning she is actually sitting up in a chair. She reports that she tolerated scrambled eggs and yogurt this morning. She notes that her abdominal discomfort is almost completely resolved. She is eager to be discharged. Physical Exam Vital Signs: Vital Signs: Last Vital Signs Temp 97.3 F 05/12/21 07:55 Pulse 73 05/12/21 08:57 Resp 18 05/12/21 07:55 BP 179/84 H 05/12/21 07:55 Pulse Ox 97 05/12/21 08:57 Body Mass Index 16.9 Const: General: cooperative, healthy appearing and no acute distress Orientation/consciousness: oriented to person, oriented to place and oriented to time HENMT: Head: Yes normal to inspection Neck: Carotids: no bruits Chest: Chest palpation & inspection: normal inspection of the chest Resp: Effort & Inspection: normal respiratory effort and able to speak in complete sentences Auscultation: clear to auscultation bilaterally Cardio: Rate: regular rate Heart sounds: S1 normal heart sound present and S2 normal heart sound present GI: Inspection: Yes normal to inspection Skin: General skin exam: no rashes or lesions noted Wounds: no wounds Neuro: General: oriented to person, oriented to place, oriented to time and CN's II-XI intact bilaterally Extrem: General: Yes normal to inspection, Yes full ROM and Yes no clubbing, cyanosis or edema Psych: Appearance: grossly normal and well kempt Speech and movement: Normal speech and movement present Affect: normal affect Progress Note: A&P Assessment and plan (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 I do believe this is more chronic in nature. In addition there is a questionable history of DVT and PE. It appears that the patient has an IVC filter. I do believe it would be most ideal to have her on formal anticoagulation with a DOAC. She is stable from my perspective for discharge from the hospital. I would recommend outpatient follow-up in approximately 2 weeks time with me. Case was discussed with the hospitalist team. Thank you for allowing us to assist in this patient's care. Fall Risk Details Current Medications: Current Medications Acetaminophen (Acetaminophen 325 Mg Tablet) 650 mg PO Q6H PRN PRN Reason: Pain, Mild (Pain Scale 1-3) Last Admin: 05/10/21 10:45 Dose: 650 mg Documented by: Amlodipine Besylate (Amlodipine Besylate 2.5 Mg Tablet) 2.5 mg PO DAILY [facility]; Protocol Last Admin: 05/12/21 08:17 Dose: 2.5 mg Documented by: Docusate Sodium (Docusate Sodium 100 Mg Capsule) 100 mg PO DAILY PRN PRN Reason: Constipation Last Admin: 05/10/21 10:45 Dose: 100 mg Documented by: Folic Acid (Folic Acid 1 Mg Tablet) 1 mg PO DAILY [facility] Last Admin: 05/12/21 08:17 Dose: 1 mg Documented by: Heparin Sodium (Porcine) (Heparin Sodium,Porcine 5,000 Unit/Ml Vial) 1,600 unit 40 unit/kg (1600 unit) IVPUSH PROTOCOL BOLUS PRN; Protocol PRN Reason: 40 unit/kg - Heparin Protocol Last Admin: 05/12/21 06:45 Dose: 1,600 unit Documented by: Heparin Sodium (Porcine) (Heparin Sodium,Porcine 5,000 Unit/Ml Vial) 3,300 unit 80 unit/kg (3300 unit) IVPUSH PROTOCOL BOLUS PRN; Protocol PRN Reason: 80 unit/kg - Heparin Protocol Heparin Sodium/Sodium Chloride () 25,000 unit in 250 mls @ 0 mls/hr IVCONT .Q0M [facility]; Protocol Last Titration: 05/12/21 06:43 Dose: 16 units/kg/hr, 6.53 mls/hr Documented by: Methotrexate (Methotrexate Sodium 2.5 Mg Tablet) 12.5 mg PO [facility] Morphine Sulfate (Morphine Sulfate 2 Mg/Ml Cartridge) 2 mg IVPUSH Q3H PRN; Protocol PRN Reason: Pain, Severe (Pain Scale 7-10) Last Admin: 05/11/21 11:10 Dose: 2 mg Documented by: Ondansetron HCl (Ondansetron Hcl 4 Mg/2 Ml Vial) 4 mg IVPUSH Q8H PRN PRN Reason: Nausea and Vomiting Oxycodone HCl (Oxycodone Hcl Immed Release 5 Mg Tablet) 5 mg PO Q6H PRN PRN Reason: Pain, Severe (Pain Scale 7-10) Last Admin: 05/11/21 08:59 Dose: 5 mg Documented by: Pharmacy Consult (Consult Rx Perform Med Rec) 1 each MISCELLANE ONCE PRN PRN Reason: Consult order Sodium Chloride (0.9 % Sodium Chloride Flush 3 Ml Syringe) [facility] Last Admin: 05/12/21 08:17 Dose: Not Given Documented by: Time Spent With Patient Time: Total time spent is greater than 50% in coordination of care (as documented) at patient's floor/unit and/or counseling patient: Time with patient: 15 - 24 minutes Procedures Date of Service Date of Service: 05/12/21 Quality Stroke Does the patient have a stroke diagnosis?: No VTE Prior VTE?: No VTE Risk Level:: Medical - moderate - high VTE Device Contraindication: Treatment Not Tolerated VTE Drug Contraindication: N/A - Med Ordered
[2021-05-12] MEDS: Morphine Sulfate 2 MG/ML CARTRIDGE IVPUSH (11:09)
[2021-05-12] MEDS: Docusate Sodium 100 MG CAPSULE PO (11:11)
--- NOTE | 2021-05-12 11:31 | PM.PNGS ---
Subjective Subjective Date of Service: 05/12/21 Interval history: Denies any abdominal pain Good oral intake Had brief episode of pain on the left side yesterday morning but lactate was normal She has been doing well since then Physical Exam Vital Signs: Vital Signs: Last Vital Signs Temp 97.3 F 05/12/21 07:55 Pulse 73 05/12/21 08:57 Resp 18 05/12/21 07:55 BP 179/84 H 05/12/21 07:55 Pulse Ox 97 05/12/21 08:57 Body Mass Index 16.9 Const: General: comfortable and no acute distress Resp: Effort & Inspection: normal respiratory effort Cardio: Rate: regular rate GI: Palpation (GI): Soft to palpation, not firm, nontender and no guarding Procedures Date of Service Date of Service: 05/12/21 Progress Note: A&P Assessment and plan (1) Abdominal pain: Status: Acute Assessment and Plan: Has SMA obstruction on CT scan but this appears to be chronic with good collateralization already left-sided abdominal pain episodes unlikely to be related to his CAT scan finding She describes pain yesterday when she was moving her torso Good oral intake and denies GI complaints PO anticoagulation for SMA obstruction No surgical intervention necessary at this time Reviewed with son Fall Risk Details Current Medications: Current Medications Acetaminophen (Acetaminophen 325 Mg Tablet) 650 mg PO Q6H PRN PRN Reason: Pain, Mild (Pain Scale 1-3) Last Admin: 05/10/21 10:45 Dose: 650 mg Documented by: Amlodipine Besylate (Amlodipine Besylate 2.5 Mg Tablet) 2.5 mg PO DAILY [facility]; Protocol Last Admin: 05/12/21 08:17 Dose: 2.5 mg Documented by: Docusate Sodium (Docusate Sodium 100 Mg Capsule) 100 mg PO DAILY PRN PRN Reason: Constipation Last Admin: 05/12/21 11:11 Dose: 100 mg Documented by: Folic Acid (Folic Acid 1 Mg Tablet) 1 mg PO DAILY [facility] Last Admin: 05/12/21 08:17 Dose: 1 mg Documented by: Heparin Sodium (Porcine) (Heparin Sodium,Porcine 5,000 Unit/Ml Vial) 1,600 unit 40 unit/kg (1600 unit) IVPUSH PROTOCOL BOLUS PRN; Protocol PRN Reason: 40 unit/kg - Heparin Protocol Last Admin: 05/12/21 06:45 Dose: 1,600 unit Documented by: Heparin Sodium (Porcine) (Heparin Sodium,Porcine 5,000 Unit/Ml Vial) 3,300 unit 80 unit/kg (3300 unit) IVPUSH PROTOCOL BOLUS PRN; Protocol PRN Reason: 80 unit/kg - Heparin Protocol Heparin Sodium/Sodium Chloride () 25,000 unit in 250 mls @ 0 mls/hr IVCONT .Q0M [facility]; Protocol Last Titration: 05/12/21 06:43 Dose: 16 units/kg/hr, 6.53 mls/hr Documented by: Methotrexate (Methotrexate Sodium 2.5 Mg Tablet) 12.5 mg PO Ren [facility] Morphine Sulfate (Morphine Sulfate 2 Mg/Ml Cartridge) 2 mg IVPUSH Q3H PRN; Protocol PRN Reason: Pain, Severe (Pain Scale 7-10) Last Admin: 05/12/21 11:09 Dose: 2 mg Documented by: Ondansetron HCl (Ondansetron Hcl 4 Mg/2 Ml Vial) 4 mg IVPUSH Q8H PRN PRN Reason: Nausea and Vomiting Oxycodone HCl (Oxycodone Hcl Immed Release 5 Mg Tablet) 5 mg PO Q6H PRN PRN Reason: Pain, Severe (Pain Scale 7-10) Last Admin: 05/11/21 08:59 Dose: 5 mg Documented by: Pharmacy Consult (Consult Rx Perform Med Rec) 1 each MISCELLANE ONCE PRN PRN Reason: Consult order Sodium Chloride (0.9 % Sodium Chloride Flush 3 Ml Syringe) [facility] Last Admin: 05/12/21 08:17 Dose: Not Given Documented by: Time Spent With Patient Time: Total time spent is greater than 50% in coordination of care (as documented) at patient's floor/unit and/or counseling patient: Time with patient: 15 - 24 minutes Quality Stroke Does the patient have a stroke diagnosis?: No VTE Prior VTE?: No VTE Risk Level:: Medical - moderate - high VTE Device Contraindication: Treatment Not Tolerated VTE Drug Contraindication: N/A - Med Ordered
[2021-05-12 12:00] VITALS: BP 174/78; PULSE 88; RESP 16; TEMP 37.1; O2SAT 98
--- NOTE | 2021-05-12 13:14 | MHC.CLN ---
F/U APPEARS TO BE EATING WELL, 75-100%. CONTINUE TO MONITOR INTAKE.
[2021-05-12 13:40] LABS: PTT Heparin Drip 55.7 SEC (53-77.9)
--- NOTE | 2021-05-12 14:21 | HO.PM.IMPN ---
Subjective Subjective Date of Service: 05/12/21 Interval History: Episodic left-sided abdominal pain overnight requiring morphine. Pain resolves however still uncomfortable Review of Systems Denies chest pain Denies shortness of breath Denies nausea vomiting diarrhea Physical Exam Vital Signs: Vital Signs: Last Vital Signs Temp 98.7 F 05/12/21 12:00 Pulse 88 05/12/21 12:00 Resp 16 05/12/21 12:00 BP 174/78 H 05/12/21 12:00 Pulse Ox 98 05/12/21 12:00 Body Mass Index 16.9 Const: Other: No acute distress HENMT: Other: Membranes moist Resp: Other: Clear to auscultation bilaterally no rales rhonchi or wheezes Cardio: Other: No S4; positive S1-S2; no S3 bursal recount GI: Other: Soft tender left upper quadrant. Bowel sounds x4 quadrants. No acute peritoneal signs Extrem: Other: No edema bilateral Objective Data Active Medications Acetaminophen (Acetaminophen 325 Mg Tablet) 650 mg PO Q6H PRN PRN Reason: Pain, Mild (Pain Scale 1-3) Last Admin: 05/10/21 10:45 Dose: 650 mg Documented by: AVA Amlodipine Besylate (Amlodipine Besylate 2.5 Mg Tablet) 2.5 mg PO DAILY [facility]; Protocol Last Admin: 05/12/21 08:17 Dose: 2.5 mg Documented by: LUCAS Apixaban (Apixaban 5 Mg Tablet) 5 mg PO BID [facility] Docusate Sodium (Docusate Sodium 100 Mg Capsule) 100 mg PO DAILY PRN PRN Reason: Constipation Last Admin: 05/12/21 11:11 Dose: 100 mg Documented by: LUCAS Folic Acid (Folic Acid 1 Mg Tablet) 1 mg PO DAILY [facility] Last Admin: 05/12/21 08:17 Dose: 1 mg Documented by: LUCAS Heparin Sodium (Porcine) (Heparin Sodium,Porcine 5,000 Unit/Ml Vial) 3,300 unit 80 unit/kg (3300 unit) IVPUSH PROTOCOL BOLUS PRN; Protocol PRN Reason: 80 unit/kg - Heparin Protocol Stop: 05/12/21 21:00 Heparin Sodium/Sodium Chloride () 25,000 unit in 250 mls @ 0 mls/hr IVCONT .Q0M [facility]; Protocol Stop: 05/12/21 21:00 Methotrexate (Methotrexate Sodium 2.5 Mg Tablet) 12.5 mg PO Ren [facility] Morphine Sulfate (Morphine Sulfate 2 Mg/Ml Cartridge) 2 mg IVPUSH Q3H PRN; Protocol PRN Reason: Pain, Severe (Pain Scale 7-10) Last Admin: 05/12/21 11:09 Dose: 2 mg Documented by: LUCAS Ondansetron HCl (Ondansetron Hcl 4 Mg/2 Ml Vial) 4 mg IVPUSH Q8H PRN PRN Reason: Nausea and Vomiting Oxycodone HCl (Oxycodone Hcl Immed Release 5 Mg Tablet) 5 mg PO Q6H PRN PRN Reason: Pain, Severe (Pain Scale 7-10) Last Admin: 05/11/21 08:59 Dose: 5 mg Documented by: LUCAS Pharmacy Consult (Consult Rx Perform Med Rec) 1 each MISCELLANE ONCE PRN PRN Reason: Consult order Sodium Chloride (0.9 % Sodium Chloride Flush 3 Ml Syringe) [facility] Last Admin: 05/12/21 08:17 Dose: Not Given Documented by: LUCAS Non-Admin Reason: IV Running Labs CBC & Chem 7: 05/12/21 05:50 05/12/21 05:50 Labs: Laboratory Results - last 24 hr 05/11/21 05/11/21 05/12/21 17:52 23:20 00:51 MCV MCH MCHC RDW Plt Count MPV Immature Gran % (Auto) Neut % (Auto) Lymph % (Auto) [place] % (Auto) Eos % (Auto) Baso % (Auto) Lymph # (Auto) [place] # (Auto) Eos # (Auto) Baso # (Auto) Abs Immat Gran (auto) Absolute Neuts (auto) Absolute Nucleated RBC Nucleated RBC % (auto) Smear Tech's Comments PTT (Heparin Protocol) 48.1 L > 200.0 H* D 42.8 L D Anion Gap Estim Creat Clear Calc Estimated GFR Random Glucose Calcium Total Bilirubin AST ALT Alkaline Phosphatase Total Protein Albumin 05/12/21 05/12/21 05/12/21 05:50 05:50 05:50 MCV 92.2 MCH 28.6 MCHC 31.0 RDW 22.5 H Plt Count 216 MPV 9.3 L Immature Gran % (Auto) 0.0 Neut % (Auto) 10.1 L Lymph % (Auto) 69.4 H [place] % (Auto) 14.2 H Eos % (Auto) 5.4 H Baso % (Auto) 0.9 Lymph # (Auto) 2.2 [place] # (Auto) 0.5 Eos # (Auto) 0.2 Baso # (Auto) 0.0 Abs Immat Gran (auto) 0.00 Absolute Neuts (auto) 0.3 L Absolute Nucleated RBC 0.000 Nucleated RBC % (auto) 0.0 Smear Tech's Comments VERIFIED PTT (Heparin Protocol) 45.8 L Anion Gap 9 L Estim Creat Clear Calc 47.4 Estimated GFR > 60 Random Glucose 100 Calcium 8.8 Total Bilirubin < 0.2 AST 16 ALT 7 Alkaline Phosphatase 75 Total Protein 6.5 Albumin 2.7 L 05/12/21 12:32 MCV MCH MCHC RDW Plt Count MPV Immature Gran % (Auto) Neut % (Auto) Lymph % (Auto) [place] % (Auto) Eos % (Auto) Baso % (Auto) Lymph # (Auto) [place] # (Auto) Eos # (Auto) Baso # (Auto) Abs Immat Gran (auto) Absolute Neuts (auto) Absolute Nucleated RBC Nucleated RBC % (auto) Smear Tech's Comments PTT (Heparin Protocol) 55.7 D Anion Gap Estim Creat Clear Calc Estimated GFR Random Glucose Calcium Total Bilirubin AST ALT Alkaline Phosphatase Total Protein Albumin Microbiology Microbiology Results: Microbiology 05/10/21 00:36 Blood Culture - Preliminary Blood - Venous No growth after 48 hours. 05/10/21 00:36 Blood Culture - Preliminary Blood - Venous No growth after 48 hours. 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 Abdominal pain Seen by both General surgery and vascular surgery. Both notes appreciated. Discussed with Dr. Villarreal; will DC heparin drip and start Eliquis. Given change in status, will CT abdomen and pelvis. 2. Hypertension - stable - continue amlodipine 2.5 3.CVA;old. No acute issues - does not appear to be on aspirin or high-dose statins- unclear etiology. Defer to PCP DVT prophylaxis: Heparin GTT Quality Stroke Does the patient have a stroke diagnosis?: No VTE Prior VTE?: No VTE Risk Level:: Medical - moderate - high VTE Device Contraindication: Treatment Not Tolerated VTE Drug Contraindication: N/A - Med Ordered
[2021-05-12 15:52] VITALS: BP 129/66; PULSE 79; RESP 16; TEMP 37.3; O2SAT 97
[2021-05-12] MEDS: 0.9 % Sodium Chloride Flush 3 ML SYRINGE IVFLUSH ×2 (18:41→20:27)
[2021-05-12 19:31] VITALS: BP 139/63; PULSE 72; RESP 15; TEMP 37.1; O2SAT 97
[2021-05-12] MEDS: Apixaban 5 MG TABLET PO (20:26)
[2021-05-13] VITALS: BP 141/73; PULSE 78; RESP 18; TEMP 36.6; O2SAT 98
[2021-05-13 03:15] VITALS: BP 142/67; PULSE 73; RESP 18; TEMP 36.6; O2SAT 97
[2021-05-13 07:46] VITALS: BP 171/79; PULSE 75; RESP 18; TEMP 36.5; O2SAT 98
[2021-05-13] MEDS: amLODIPine Besylate 2.5 MG TABLET PO (08:07)
[2021-05-13] MEDS: Apixaban 5 MG TABLET PO (08:07)
[2021-05-13] MEDS: Folic Acid 1 MG TABLET PO (08:07)
[2021-05-13 08:13] LABS: Basophils Percent Auto 1.2 % (0-2); Eosinophils Absolute Auto 0.2 X10*3/uL (0.0-0.4); Eosinophils Percent Auto 4.5 % (0-4); Hematocrit 31.7 % (37-47); Hemoglobin 9.9 g/dl (12.0-16.0); Imm Gran Abs Auto 0.01 X10*3/uL (0.00-0.03); Imm Gran Pct Auto 0.3 % (0.0-0.4); Lymphocytes Percent Auto 59.1 % (20-40); MANUAL DIFF FLAG SCAN; Mean Corpuscular HGB Conc 31.2 g/dl (31.0-35.0); Mean Corpuscular Hemoglobin 28.9 pg (27.0-33.0); Mean Corpuscular Volume 92.7 fL (80-98); Mean Platelet Volume 9.2 fL (9.4-12.3); Monocytes Absolute Auto 0.5 X10*3/uL (0.1-1.2); Monocytes Percent Auto 15.5 % (2-11); Neutrophils Absolute Auto 0.6 X10*3/uL (2.0-8.3); Neutrophils Percent Auto 19.4 % (45-73); Platelet Count 208 X10*3/uL (160-400); Red Blood Count 3.42 X10*6/uL (4.20-5.50); Red Cell Distribution Width 22.7 % (11.0-16.0); SCAN SMEAR FLAG 1; White Blood Count 3.3 X10*3/uL (4.8-10.8)
[2021-05-13 08:33] LABS: Alanine Aminotransferase 7 U/L (0-31); Albumin Level 2.8 g/dL (3.5-5.0); Alkaline Phosphatase 73 U/L (39-117); Anion Gap 9 (12-20); Aspartate Amino Transferase 15 U/L (5-31); Bilirubin Total 0.3 mg/dL (0.0-1.0); Blood Urea Nitrogen 12 mg/dL (9-16); Calcium 8.5 mg/dL (8.4-10.2); Carbon Dioxide 25 mmol/L (22-29); Chloride 103 mmol/L (96-108); Creatinine Clr Calc Pharmacy 48.1; Estimated Glomerular Filt Rate > 60; Glucose Random 102 mg/dL (60-115); Potassium 4.4 mmol/L (3.3-5.1); Sodium 133 mmol/L (135-145); Total Protein 6.8 g/dL (6.5-8.0)
[2021-05-13 08:46] LABS: SLIDE REVIEW VERIFIED
[2021-05-13] MEDS: 0.9 % Sodium Chloride Flush 3 ML SYRINGE IVFLUSH (10:30)
[2021-05-13] MEDS: Lactulose 20 GM/30 ML SOLUTION PO (10:30)
--- NOTE | 2021-05-13 10:37 | PM.DS ---
DS: Providers Provider Date of Service: 05/13/21 Date of admission: 05/10/21 02:01 Date of discharge: 05/13/21 Primary care physician: Lashaun Deluca MD Consults: 05/10/21 02:05 Consult to Vascular Surgery Routine Consulting Provider: Yan Villarreal Reason for consultation: SMA occlusion Has provider been notified: Yes 05/11/21 17:15 Consult to General Surgery Routine Consulting Provider: Franklin Baez Reason for consultation: Surgical consult DS: Diagnosis Discharge Diagnosis (1) Abdominal pain: Status: Acute DS: Summary Hospital Course Hospital Course: 76-year-old female with past medical history of rheumatoid arthritis, hypertension, GERD, CVA with right-sided deficits here with complaints of left-sided abdominal pain for 1 week.? Patient reports the abdominal pain is about 10/10, nonradiating, intermittent, slowly be eating or exacerbating factors, not associated with any nausea or vomiting, no melena or bright blood per rectum, no diarrhea constipation, no urinary symptoms and no lower extremity edema.? ER course: Hemodynamically stable with no significant abnormal vitals except for a blood pressure of 214/109 that improved spontaneously with no intervention WBC count of 6.1, hemoglobin 10.6, otherwise unremarkable.? UA negative. Abdominal pelvic CT shows new SMA occlusion/critical stenosis.? There is distal filling the gastroduodenal collaterals.? Some mild small bowel thickening is present without a pneumatosis or portal venous gas. This case was discussed with Dr. Villarreal(Vascular), patient started on heparin drip and will be admitted for further management. Hospital course: Patient continued on heparin drip in case discussed with vascular. Continued heparin drip for 48 hours during which time patient was seen by surgery for increasing abdominal pain. Surgery stated there was no you acute intervention indicated; KUB done and lactate as well both unremarkable. CT scan of the abdomen repeated and showed diffuse constipation thought likely to be the cause of pain. Heparin DC in favor of Eliquis to given vascular is thought that SMA occlusion is chronic given collaterals. Patient was given lactulose results pending. Tolerating diet without pain wishing to go home. Medically acceptable for same Time Spent with Patient Time attestation: Total time spent providing and/or coordinating discharge services: Discharge coordination time: Greater than 30 minutes Quality: Stroke Does the patient have a stroke diagnosis?: No Physical Exam Vital Signs: Vital Signs: Last Vital Signs Temp 97.7 F 05/13/21 07:46 Pulse 75 05/13/21 07:46 Resp 18 05/13/21 07:46 BP 171/79 H 05/13/21 07:46 Pulse Ox 98 05/13/21 07:46 Body Mass Index 16.9 Const: Other: No acute distress HENMT: Other: Membranes moist Resp: Other: Clear to auscultation bilaterally no rales rhonchi or wheezes Cardio: Other: No S4; positive S1-S2; no S3 bursal recount GI: Other: Soft tender left upper quadrant. Bowel sounds x4 quadrants. No acute peritoneal signs Extrem: Other: No edema bilateral DS: Data Data Completed and Pending Labs on day of discharge: Laboratory Results - last 24 hr 05/12/21 05/13/21 05/13/21 12:32 07:35 07:35 WBC 3.3 L RBC 3.42 L Hgb 9.9 L Hct 31.7 L MCV 92.7 MCH 28.9 MCHC 31.2 RDW 22.7 H Plt Count 208 MPV 9.2 L Immature Gran % (Auto) 0.3 Neut % (Auto) 19.4 L Lymph % (Auto) 59.1 H Gates % (Auto) 15.5 H Eos % (Auto) 4.5 H Baso % (Auto) 1.2 Lymph # (Auto) 2.0 Gates # (Auto) 0.5 Eos # (Auto) 0.2 Baso # (Auto) 0.0 Abs Immat Gran (auto) 0.01 Absolute Neuts (auto) 0.6 L Absolute Nucleated RBC 0.000 Nucleated RBC % (auto) 0.0 Smear Tech's Comments VERIFIED PTT (Heparin Protocol) 55.7 D Sodium 133 L Potassium 4.4 Chloride 103 Carbon Dioxide 25 Anion Gap 9 L BUN 12 Creatinine 0.66 Estim Creat Clear Calc 48.1 Estimated GFR > 60 Random Glucose 102 Calcium 8.5 Total Bilirubin 0.3 AST 15 ALT 7 Alkaline Phosphatase 73 Total Protein 6.8 Albumin 2.8 L Preliminary micro results at discharge 05/10/21 00:36 Blood Culture - Preliminary Blood - Venous No growth after 48 hours. 05/10/21 00:36 Blood Culture - Preliminary Blood - Venous No growth after 48 hours. Discharge Plan Discharge Patient Disposition: Home Health Service Discharge Diagnosis: SMA occlusion chronic, constipation Referrals: Lashaun Colon MD [Primary Care Provider] - 1 Week Discharge Medications: New Eliquis 5 mg Tablet 5 mg PO BID Qty: 30 RF: 2 lactulose 10 gram/15 mL solution 10 g PO BEDTIME PRN (Reason: constipation) Qty: 473 RF: 0 Continued amlodipine 2.5 mg tablet 2.5 mg PO DAILY 90 Days Qty: 90 RF: 1 methotrexate sodium 2.5 mg tablet 5 tab PO QWEEK RF: 0 folic acid 1 mg tablet 1 tab PO DAILY RF: 0 Discharge Orders: Discharge Order (Routine); Ordered 05/13/21 Ordered By: Angel Juárez Diet: advance to usual diet Activity on Discharge: As tolerated Stand Alone Forms: Patient Portal Discharge page Care Plan Goals: Maintain high his level of function Health Concerns: Bowel regularity Plan of Treatment: Bowel regimen Assessment: Improved
--- NOTE | 2021-05-13 11:23 | MHC.CM.PN ---
PT MEDICALLY CLEARED FOR D/C, PT WILL RETURN HOME W/RESUMPTION OF [facility] FOR OT/PT/MANAGER DEPARTMENT, PER HOSPITALIST PT'S WILL BE HERE LATER TODAY AFTER EVENT TO TRANSPORT.
[2021-05-13 11:59] VITALS: BP 136/70; PULSE 79; RESP 16; TEMP 36.4; O2SAT 98
[2021-05-13 16:00] VITALS: BP 134/68; PULSE 76; RESP 18; TEMP 36.8; O2SAT 98
== END 2021-05-13 17:11 | disposition home health service (06) | DRG 391 ==
LOC: HO.ED 05-10 01:17 → HO.EDOVER 05-10 02:06 → HO.S3 05-10 09:55
PROVIDERS: Nurse Practitioner Family; Physician Assistant; Admitting Provider Internal Medicine; Emergency Provider Emergency Medicine; PCP Internal Medicine; Visit Provider Hospitalist
DX: K59.00 Constipation, unspecified (principal); K55.069 Acute infarction of intestine, part and extent unspecified; M06.9 Rheumatoid arthritis, unspecified; K21.9 Gastro-esophageal reflux disease without esophagitis; I10 Essential (primary) hypertension; Z20.822 Contact with and (suspected) exposure to COVID-19; Z86.73 Personal history of transient ischemic attack (TIA), and cerebral infarction without residual deficits; Z79.01 Long term (current) use of anticoagulants; Z79.899 Other long term (current) drug therapy
CPT/HCPCS: 36415; 74176; 74177; 80048; 80053; 81003; 83605; 83690; 85007; 85025; 85027; 85610; 85730; 87040; 87635; 93005; 93306; 96365; 96375; 97162; 97530; 99285; J2270; J2405; J2543; Q9967

== ENCOUNTER → 2021-06-06 15:17 | Outpatient (BNVA) | payer MEDICARE, OTHER, SELFPAY | PROVIDERS: PCP Internal Medicine; Visit Provider Surgery Vascular Surgery | DX: K55.069 Acute infarction of intestine, part and extent unspecified (principal); I63.512 Cerebral infarction due to unspecified occlusion or stenosis of left middle cerebral artery; R47.81 Slurred speech; R10.9 Unspecified abdominal pain; I10 Essential (primary) hypertension; E78.00 Pure hypercholesterolemia, unspecified; R80.9 Proteinuria, unspecified; Z86.73 Personal history of transient ischemic attack (TIA), and cerebral infarction without residual deficits; Z79.01 Long term (current) use of anticoagulants | CPT/HCPCS: 99212 ==

== ENCOUNTER 2021-08-16 13:00 | Outpatient (RCR) | payer MEDICARE, OTHER, SELFPAY ==
[2021-06-21 13:04] VITALS: BP 141/77; PULSE 91
--- NOTE | 2021-06-21 14:40 | MHC.PT.EP ---
[facility] [place] Office [place] Office [place] Office [address] [phone] F: [phone] F: [phone] F: [phone] F: [phone] Physical Therapy Plan of Care Date of Evaluation: Date of Surgery: NA Diagnosis: Stroke Assessment: Michelle is a 76 year old female who is referred to PT for stroke . Pt had the stroke about 6 months back (11/26/20). Pt was in [facility] and then transferred for acute rehab, [facility] and them home PT. Pt was not making much progress with home PT and is therefore seeking outpatient PT. On PT examination she reported of having no pain and tenderness, presented with decreased ROM and strength in B LE, presented with impaired bed mobility, transfers and ambulation. Due to these she is needed assistance for all ADLS. She would benefit from skilled PT to address the aforementioned impaired and improve tolerance to functional activities. Frequency and Duration: The patient will be seen 2/week for 8 weeks Short Term Goals: 1. Pt will be able to perform bed mobility under supervision in 2 weeks. 2. Pt will be able to perform sit to stand x 5 with min A in 3 weeks. 3. Pt will be able to stand unassisted with gina walker for 30 seconds x 2 in 4 weeks Snf Goals: 1. Pt will be able to transfer from bed <> chair using gina-walker and supervision in 6 weeks 2. Pt will be able to ambulate 20 feet with hemiwalker under supervision in 8 weeks. Treatment Plan: Modalities to reduce pain, spasms and effusion. Manual therapy to restore motion and function. Therapeutic exercise to improve strength and flexibility. Neuromuscular re-education for posture and balance. Therapeutic activities to return to functional activities of daily living. Electronically signed by: Marion Grullon PT DPT Please sign and return to therapist. Thank you for your referral.
--- NOTE | 2021-08-22 14:29 | MHC.PT.DC ---
[facility] [place] Office [place] Office [place] Office [address] [phone] F: [phone] F: [phone] F: [phone] F: [phone] Physical Therapy Discharge Report Diagnosis: Stroke Date of Surgery: NA Date of Evaluation: 06/21/21 Date of Discharge: 08/22/21 Treatments to Date: 16 Cancellations to Date: 1 No Shows to Date: 0 Discharge Status: Physician Discontinued Tx Discharge Summary: Michelle called stating she fractured her hip and was in [facility] [place] for [place]. She is currently in acute rehab. Due to change of medical status she has been d/c from PT. Electronically signed by: Marion Grullon PT DPT Please sign and return to therapist. Thank you for your referral.
== END 2021-08-22 14:30 | disposition home or self-care (01) ==
LOC: HO.PT 13:00
PROVIDERS: PCP Internal Medicine; Visit Provider Internal Medicine
DX: I63.512 Cerebral infarction due to unspecified occlusion or stenosis of left middle cerebral artery (principal)
CPT/HCPCS: 97110; 97112; 97116; 97162

== ENCOUNTER 2021-08-17 02:08 | Inpatient (IN) | payer MEDICARE, OTHER, SELFPAY ==
[2021-08-17] VITALS (8 sets, daily range): BP systolic 122–146; BP diastolic 61–75; PULSE 71–95; RESP 9–20; TEMP 36.6–37; O2SAT 97–100; BMI 20.8
--- NOTE | ~2021-08-17 | CT_ITS ---
EXAMINATION: CTA OF THE HEAD/NECK CLINICAL INFORMATION: Aphasia. New onset of left-sided weakness COMPARISON: Head CT performed today. MRI 11/13/2006. TECHNIQUE: A routine non contrast head CT was performed earlier in the evening. This is followed by a 70 mL bolus of Omnipaque 350. Subsequent multidetector helical imaging was performed of the head and neck. Delayed post contrast imaging was also performed through the head. Multiplanar reformats and MIP were also obtained. Internal carotid artery stenoses are assessed in accordance with NASCET criteria unless otherwise indicated. This CT examination was performed using dose optimization techniques as appropriate, variously including the following: *Automated exposure control *Adjustment of mA and/or kV according to patient size (this includes techniques or standardized protocols for targeted exams where dose is matched to indication/reason for exam; i.e. extremities or head) *Use of iterative reconstruction technique DLP: 1158 mGy-cm. FINDINGS: CT HEAD: There is no evidence of acute intracranial hemorrhage or territorial infarction. No abnormal mass effect or midline shift is seen. As seen on the recent head CT, areas of encephalomalacia with jackson to white matter differentiation loss are seen at the left frontal lobe laterally and at the medial aspect of the right occipital lobe. Jackson to white matter differentiation is otherwise well preserved. No extra-axial fluid collections are identified. No suspicious leptomeningeal or parenchymal enhancement on the post-contrast images. No hydrocephalus. Proportional prominence of the ventricles and sulcal spaces is consistent with mild volume loss. Patchy periventricular and deep white matter hypoattenuation is consistent with moderate small vessel ischemic changes. The osseous structures and soft tissues are normal. The left mastoid air cells are partially opacified. Opacification of the left maxillary sinus. Partially opacified ethmoid air cells. The right mastoid air cells and visualized portions of the paranasal sinuses are otherwise well aerated. CTA NECK: The aortic arch is of normal caliber and the origins of the great vessels are patent without evidence of significant stenosis. The cervical portion of the vertebral arteries are patent bilaterally. No luminal irregularities in the common carotid arteries and the carotid bifurcations are patent bilaterally. The cervical portion of the internal carotid arteries are of normal caliber. The laryngeal structures and pharyngeal mucosal spaces are unremarkable. The oral cavity appears normal. The parotid and submandibular glands are normal. No pathologically enlarged lymph nodes. Subcentimeter nodules in the thyroid gland. No follow-up imaging recommended. Mild pleural thickening at the lung apices.. Spinal alignment is maintained. Mild cervical spondylosis is noted. CTA HEAD: The intradural portion of the vertebral arteries are of normal caliber. The basilar, superior cerebellar, and posterior communicating arteries are patent. The posterior, middle, and anterior cerebral arteries are of normal caliber without evidence of significant luminal irregularity. No definite intracranial aneurysms. CT/CT angio head neck stroke IMPRESSION: 1. No acute intracranial hemorrhage. Areas of white matter hypoattenuation again noted, suggestive of infarcts of uncertain chronicity. 2. No acute vascular abnormality. No large vessel occlusion or flow-limiting stenosis. This critical result was discussed with Mendez Bearden MD by telephone at 08/17/2021 3:10 AM and it was ascertained that the content and urgency of the report was understood at the time of direct communication.
--- NOTE | ~2021-08-17 | XR_ITS ---
EXAMINATION: XR HIP, RIGHT CLINICAL INFORMATION: Right hip fracture COMPARISON: Previous CT of the left hip from earlier the same day and CT of the abdomen and pelvis April 2021 TECHNIQUE: AP view of the pelvis and shoot through lateral view of the right hip FINDINGS: There is an impacted subcapital right femoral neck fracture. This is new in the interval from April 2021 CT scan. There are old or healing right pubic rami fractures. This appears similar to CT of the abdomen and pelvis from April 2021 exam. There is a compression/lag screw and intramedullary bronwyn seen in the left proximal femur. Left acetabular fractures appreciated by CT are difficult to appreciate by x-ray. There is excreted contrast in the bladder. There is evidence of atherosclerotic disease. An IVC filter is partially visualized. XR/XR hip RT w [id number] IMPRESSION: Impacted subcapital right femoral neck fracture new in the interval from April 2021 CT scan. Old-appearing right pubic rami fractures. Left acetabular fractures seen by CT scan not appreciated.
--- NOTE | ~2021-08-17 | XR_ITS ---
EXAMINATION: XR PELVIS CLINICAL INFORMATION: Post right hip hemiarthroplasty COMPARISON: Previous x-ray CT from yesterday TECHNIQUE: AP view of the pelvis. FINDINGS: There is a new right hip hemiarthroplasty in satisfactory position. No new fracture dislocation seen. There are old right pubic rami fractures that appear unchanged. Left acetabular fracture by CT is not appreciated by x-ray. There is an intramedullary bronwyn/lag screw in the left proximal femur that is unchanged there is evidence of atherosclerotic disease. There is an IVC filter. XR/XR pelvis 1-2V IMPRESSION: Satisfactory position of right hip hemiarthroplasty.
--- NOTE | ~2021-08-17 | CT_ITS ---
EXAMINATION: CT HEAD WITHOUT CONTRAST CLINICAL INFORMATION: Stroke COMPARISON: MRI performed 11/13/2006 TECHNIQUE: Contiguous axial imaging was performed from the skull base to vertex without intravenous contrast. This CT examination was performed using dose optimization techniques as appropriate, variously including the following: * Automated exposure control * Adjustment of mA and/or kV according to patient size (this includes techniques or standardized protocols for targeted exams where dose is matched to indication/reason for exam; i.e. extremities or head) Use of iterative reconstruction technique DLP: 733 mGy-cm. FINDINGS: There is no evidence of acute intracranial hemorrhage or territorial infarction. No abnormal mass effect or midline shift is seen. There is an area of encephalomalacia with loss of jackson to white matter differentiation involving the left frontal lobe laterally, superior to the sylvian fissure. There is also a separate area of encephalomalacia in the inferior right occipital lobe. There is also chronic-appearing left cerebellar hemisphere lacunar infarct. Jackson to white matter differentiation is otherwise well preserved. No extra-axial fluid collections are identified. No hydrocephalus. Proportional prominence of the ventricles and sulcal spaces is consistent with mild volume loss. Patchy periventricular and deep white matter hypoattenuation is consistent with moderate small vessel ischemic changes. The osseous structures and soft tissues are normal. Partially opacified left mastoid air cells. The right mastoid air cells and visualized portions of the paranasal sinuses are well aerated. CT/CT head for stroke IMPRESSION: There are 2 areas of white matter hypoattenuation/encephalomalacia seen, involving the left frontal lobe and right occipital lobe. These are new from 2006 and suggest age-indeterminate infarcts. Chronic infarcts are favored given the extent of hypoattenuation. No intracranial hemorrhage. Chronic volume loss with small vessel ischemic change. This critical result was discussed with Mendez Bearden MD by telephone at 08/17/2021 2:37 AM and it was ascertained that the content and urgency of the report was understood at the time of direct communication.
--- NOTE | ~2021-08-17 | CT_ITS ---
EXAMINATION: CT HIP WITHOUT CONTRAST, LEFT CLINICAL INFORMATION: Deformity and pain with movement COMPARISON: CT 05/12/2021 TECHNIQUE: Multidetector volumetric imaging of the left hip performed without IV contrast. Coronal and sagittal reformatted images are obtained and reviewed. This CT examination was performed using dose optimization techniques as appropriate, variously including the following: *Automated exposure control *Adjustment of mA and/or kV according to patient size (this includes techniques or standardized protocols for targeted exams where dose is matched to indication/reason for exam; i.e. extremities or head) *Use of iterative reconstruction technique DLP: 163 mGy-cm FINDINGS: There is internal fixation hardware of the left femur noted intramedullary nail with femoral neck screw in place transfixing a comminuted intertrochanteric femur fracture. The bone is healed at this location. No hardware failure. There is a comminuted left acetabular fracture. The fracture involves the posterior wall without significant displacement. Transverse fracture line extends anteriorly along the superior rim of the acetabulum. There is no fracture extending into the pubic rami or iliac wing. The right hip is in the [id number] of the original data set. There is the appearance of a subcapital right femoral neck fracture with impaction. This is new from 05/12/2021. There is no joint effusion. Chronic healed right-sided pubic rami fractures. The sacroiliac joints are symmetric. Diffuse vascular calcifications. IVC filter noted. No acute abnormality seen within the pelvis. CT/CT hip LT wo con IMPRESSION: 1. Comminuted acute left acetabular fracture without significant displacement. This involves the posterior wall with a transverse fracture line extending anteriorly through the superior aspect of the acetabulum. 2. There is also a subcapital right femoral neck fracture noted. This is new from the prior CT performed 05/12/2021 and could be acute.
--- NOTE | 2021-08-17 02:13 | ED_ITS ---
HPI - Weakness General Chief complaint: Stroke Stated complaint: STROKE ALERT Time Seen by Provider: 08/17/21 02:12 Source: EMS Mode of arrival: EMS Limitations: other (aphasia) History of Present Illness HPI Narrative: Patient last none well 5 hours ago found by with aphasia and bleeding lip MD Complaint: focal weakness Onset (ago): hour(s) Duration: constant Location: LUE and LLE Severity: moderate Related Data Home Medications Medication Instructions Recorded Confirmed methotrexate sodium 2.5 mg tablet 5 tab PO QWEEK 05/10/21 08/17/21 Previous Rx's Medication Instructions Recorded lactulose 10 gram/15 mL oral 10 g (15 mL) PO BEDTIME PRN #473 ml 05/13/21 solution apixaban 5 mg tablet (Eliquis) 5 mg PO BID #30 tab 07/10/21 amlodipine 5 mg tablet 5 mg PO DAILY 90 Days #90 tab 08/08/21 Allergies Allergy/AdvReac Type Severity Reaction Status Date / Time No Known Allergies Allergy Unknown Verified 07/10/21 10:11 [No Known Allergies*] [facility] Past Medical History Medical History CVA (cerebral vascular accident) Essential hypertension Hypertension Proteinuria Pure hypercholesterolemia Rheumatoid arthritis Slurred speech Squamous cell carcinoma of nose Surgical History History of appendectomy Family History Family History Mother Heart problem Father Asthma Social History Social History Household Members: Spouse Housing: House Do you presently have visiting nurse or other home services: Yes Alcohol intake: former Patient Tobacco Use Status: Never used Tobacco e-Cigarette/Vaping Use: Never Used Second Hand Smoke Exposure: No Use of substances other than those prescribed or required for medical reasons: No Advance Directives: No service: No Current occupational status: retired Physical Exam Verdana 4l Vital Signs: Verdana 4d Verdana 4d Vital Signs: Verdana 4d Verdana 4Bd Last Vital Signs Verdana 4d Plastic Cnc Machine Operator New 4d Plastic Cnc Machine Operator New 4d Temp 98.6 F 08/17/21 03:15 Plastic Cnc Machine Operator New 4d Pulse 73 08/17/21 03:35 Plastic Cnc Machine Operator New 4d Resp 14 08/17/21 05:02 BP 122/61 08/17/21 03:35 Pulse Ox 97 08/17/21 03:15 BMI result Body Mass Index 20.8 Const: Other: frail cachectic chronically ill female, crying in pain Nutritional Appearance: cachectic Orientation/consciousness: oriented to person Limitations: no limitations HENMT: Head: Yes normal to inspection Ears: external ears normal General nose exam: Normal external nose present Mouth: Normal oral and palatal mucosa present and oropharynx normal Throat: Yes posterior oropharynx normal Eyes: General: appearance normal, both eyes and all related structures Neck: Other: supple Neck: Yes normal visual inspection Chest: Chest palpation & inspection: normal inspection of the chest Resp: Auscultation: clear to auscultation bilaterally Cardio: Jugular venous distension: no JVD Rate: regular rate Rhythm: regular rhythm Heart sounds: S1 normal heart sound present and S2 normal heart sound present GI: Inspection: Yes normal to inspection Palpation (GI): Soft to palpation, nontender and No hepatosplenomegaly present Auscultation: normal bowel sounds : General: Yes no CVA tenderness Back/Spine/Pelvis: Back: no CVA tenderness Skin: General skin exam: no rashes or lesions noted Neuro: Other: patient with old strokes able to move all extemities at baseline, still with some aphasia and dysarthria General: oriented to person and Unable to assess ga it Cranial nerves: Yes CN's II-XII intact bilaterally Speech: Expressive aphasia present Gait exam (Neuro): Unable to assess gait Extrem: Other: left and right hip pain with movement Psych: Appearance: grossly normal NIH Stroke Scale Internal: Initial- Upon Arrival Level of Consciousness: Alert Level of Consciousness Questions: Answers one question correctly Level of Consciousness Commands: Performs both tasks correctly Best Gaze: Normal Visual: No visual loss Facial Palsy: Normal Motor Arm (Right): No drift Motor Arm (Left): No drift Motor Leg (Right): Some effort against gravity Motor Leg (Left): Some effort against gravity Limb Ataxia: Absent Sensory: Normal Best Language: Mild to moderate aphasia Dysarthia: Mild to moderate dysarthria Extinction and Inattention: No abnormality Score: 7 Course Reevaluation(s) Reevaluation #1: patient had a tia with aphasia that has since resolved, in addition she has acetabular, pelvic, and right hip fracture that all appears new despite the stating that she never fell. Will admit Time: 04:13 MDM - Weakness Lab Data Result diagrams: 08/17/21 03:24 08/17/21 03:24 Labs: Lab Results 08/17/21 08/17/21 08/17/21 Range/Units 03:24 03:24 03:24 WBC 1.6 L (4.8-10.8) X10*3/uL RBC 3.96 L (4.20-5.50) X10*6/uL Hgb 11.2 L (12.0-16.0) g/dl Hct 35.5 L (37.0-47.0) % MCV 89.6 (80.0-98.0) fL MCH 28.3 (27.0-33.0) pg MCHC 31.5 (31.0-35.0) g/dl RDW 19.5 H (11.0-16.0) % Plt Count 185 (160-400) X10*3/uL MPV 8.9 L (9.4-12.3) fL Immature Gran % (Auto) 1.9 H (0.0-0.4) % Neut % (Auto) 16.1 L (45-73) % Lymph % (Auto) 55.1 H (20-40) % [place] % (Auto) 23.1 H (2-11) % Eos % (Auto) 3.2 (0-4) % Baso % (Auto) 0.6 (0-2) % Lymph # (Auto) 0.9 L (1.2-4.9) X10*3/uL [place] # (Auto) 0.4 (0.1-1.2) X10*3/uL Eos # (Auto) 0.1 (0.0-0.4) X10*3/uL Baso # (Auto) 0.0 (0.0-0.2) X10*3/uL Abs Immat Gran (auto) 0.03 (0.00-0.03) X10*3/uL Absolute Neuts (auto) 0.3 L (2.0-8.3) x10*3/uL Absolute Nucleated RBC 0.000 (0.0-0.012) X10*3/uL Nucleated RBC % (auto) 0.0 (0.0-0.2) /100WBC Smear Tech's Comments VERIFIED PT (9.9-13.0) SEC INR (0.9-1.1) Sodium 135 (135-145) mmol/L Potassium 3.7 (3.3-5.1) mmol/L Chloride 102 (96-108) mmol/L Carbon Dioxide 24 (22-29) mmol/L Anion Gap 13 (12-20) BUN 10 (9-16) mg/dL Creatinine 0.74 (0.5-1.4) mg/dL Estim Creat Clear Calc 59.8 Estimated GFR > 60 POC Glucose (60-115) mg/dL Random Glucose 145 H (60-115) mg/dL Calcium 8.9 (8.4-10.2) mg/dL Troponin I High Sens 12.4 (<3.5-17.0) ng/L COVID-19 (DESIREE) (Negative) COVID-19 Clin Com 08/17/21 08/17/21 08/17/21 Range/Units 03:24 03:24 03:33 WBC (4.8-10.8) X10*3/uL RBC (4.20-5.50) X10*6/uL Hgb (12.0-16.0) g/dl Hct (37.0-47.0) % MCV (80.0-98.0) fL MCH (27.0-33.0) pg MCHC (31.0-35.0) g/dl RDW (11.0-16.0) % Plt Count (160-400) X10*3/uL MPV (9.4-12.3) fL Immature Gran % (Auto) (0.0-0.4) % Neut % (Auto) (45-73) % Lymph % (Auto) (20-40) % [place] % (Auto) (2-11) % Eos % (Auto) (0-4) % Baso % (Auto) (0-2) % Lymph # (Auto) (1.2-4.9) X10*3/uL [place] # (Auto) (0.1-1.2) X10*3/uL Eos # (Auto) (0.0-0.4) X10*3/uL Baso # (Auto) (0.0-0.2) X10*3/uL Abs Immat Gran (auto) (0.00-0.03) X10*3/uL Absolute Neuts (auto) (2.0-8.3) x10*3/uL Absolute Nucleated RBC (0.0-0.012) X10*3/uL Nucleated RBC % (auto) (0.0-0.2) /100WBC Smear Tech's Comments PT 14.1 H (9.9-13.0) SEC INR 1.2 H (0.9-1.1) Sodium (135-145) mmol/L Potassium (3.3-5.1) mmol/L Chloride (96-108) mmol/L Carbon Dioxide (22-29) mmol/L Anion Gap (12-20) BUN (9-16) mg/dL Creatinine (0.5-1.4) mg/dL Estim Creat Clear Calc Estimated GFR POC Glucose 128 H (60-115) mg/dL Random Glucose (60-115) mg/dL Calcium (8.4-10.2) mg/dL Troponin I High Sens (<3.5-17.0) ng/L COVID-19 (DESIREE) Negative (Negative) COVID-19 Clin Com See Note Imaging Data CT scan - head: Radiologist's impression: chronic infarcts nothing acute CT angio head and neck: Radiologist's impression: No LVO CT Pelvis: Radiologist's impression: FINDINGS: There is internal fixation hardware of the left femur noted intramedullary nail with femoral neck screw in place transfixing a comminuted intertrochanteric femur fracture. The bone is healed at this location. No hardware failure. There is a comminuted left acetabular fracture. The fracture involves the posterior wall without significant displacement. Transverse fracture line extends anteriorly along the superior rim of the acetabulum. There is no fracture extending into the pubic rami or iliac wing. The right hip is in the [id number] of the original data set. There is the appearance of a subcapital right femoral neck fracture with impaction. This is new from 05/12/2021. There is no joint effusion. Chronic healed right-sided pubic rami fractures. The sacroiliac joints are symmetric. Diffuse vascular calcifications. IVC filter noted. No acute abnormality seen within the pelvis. CT/CT hip LT wo con IMPRESSION: ? 1. Comminuted acute left acetabular fracture without significant displacement. This involves the posterior wall with a transverse fracture line extending anteriorly through the superior aspect of the acetabulum. 2. There is also a subcapital right femoral neck fracture noted. This is new from the prior CT performed 05/12/2021 and could be acute.? ECG Data Attestation: I personally reviewed and interpreted this ECG as follows: Interpretation: sinus with rate of 90, no st or twave changes Critical Care Time Critical Care Time Attestation: I spent 40 minutes of critical care, with interventions, assessments, speaking to patient, consultants, and family. Discharge Plan Discharge Clinical Impression: Transient cerebral ischemia, Closed hip fracture, Closed pelvic fracture Patient Disposition: Admitted As Inpatient
--- NOTE | 2021-08-17 02:14 | ECG_ITS ---
Test Reason : FALL Blood Pressure : / mmHG Vent. Rate : 094 BPM Atrial Rate : 094 BPM P-R Int : 110 ms QRS Dur : 090 ms QT Int : 354 ms P-R-T Axes : 043 -33 038 degrees QTc Int : 442 ms Sinus rhythm with short MS Left axis deviation Nonspecific ST and T wave abnormality Abnormal ECG When compared with ECG of 09-MAY-2021 19:12, Nonspecific T wave abnormality now evident in Lateral leads Referred By: Mendez Bearden Electronically Signed By:MELISSA RIZO MD
[2021-08-17 03:28] LABS: Basophils Percent Auto 0.6 % (0-2); Eosinophils Absolute Auto 0.1 X10*3/uL (0.0-0.4); Eosinophils Percent Auto 3.2 % (0-4); Hematocrit 35.5 % (37.0-47.0); Hemoglobin 11.2 g/dl (12.0-16.0); Imm Gran Abs Auto 0.03 X10*3/uL (0.00-0.03); Imm Gran Pct Auto 1.9 % (0.0-0.4); Lymphocytes Absolute Auto 0.9 X10*3/uL (1.2-4.9); Lymphocytes Percent Auto 55.1 % (20-40); Mean Corpuscular HGB Conc 31.5 g/dl (31.0-35.0); Mean Corpuscular Hemoglobin 28.3 pg (27.0-33.0); Mean Corpuscular Volume 89.6 fL (80.0-98.0); Mean Platelet Volume 8.9 fL (9.4-12.3); Monocytes Absolute Auto 0.4 X10*3/uL (0.1-1.2); Monocytes Percent Auto 23.1 % (2-11); Neutrophils Absolute Auto 0.3 x10*3/uL (2.0-8.3); Neutrophils Percent Auto 16.1 % (45-73); Platelet Count 185 X10*3/uL (160-400); Red Blood Count 3.96 X10*6/uL (4.20-5.50); Red Cell Distribution Width 19.5 % (11.0-16.0); SCAN SMEAR FLAG 1
[2021-08-17 03:30] LABS: MANUAL DIFF FLAG SCAN
[2021-08-17 03:31] LABS: White Blood Count 1.6 X10*3/uL (4.8-10.8)
[2021-08-17 03:35] LABS: INTERNATIONAL NORM RATIO 1.2 (0.9-1.1); Prothrombin Time 14.1 SEC (9.9-13.0)
[2021-08-17 03:37] LABS: Glucose, Whole Blood 128 mg/dL (60-115)
[2021-08-17 03:44] LABS: Anion Gap 13 (12-20); Blood Urea Nitrogen 10 mg/dL (9-16); Calcium 8.9 mg/dL (8.4-10.2); Carbon Dioxide 24 mmol/L (22-29); Chloride 102 mmol/L (96-108); Creatinine Clr Calc Pharmacy 59.8; Estimated Glomerular Filt Rate > 60; Glucose Random 145 mg/dL (60-115); Potassium 3.7 mmol/L (3.3-5.1); Sodium 135 mmol/L (135-145)
[2021-08-17 03:45] LABS: COVID-19 Test Negative (Negative); IDNOW Serial# 9DD0AD1C
[2021-08-17 03:47] LABS: SLIDE REVIEW VERIFIED
[2021-08-17 03:49] LABS: Troponin-I High Sensitivity 12.4 ng/L (<3.5-17.0)
[2021-08-17] MEDS: HYDROmorphone HCl 0.5 MG/0.5 ML SYRINGE IVPUSH ×2 (03:55→05:02)
--- NOTE | 2021-08-17 05:29 | P.HPHOSP_ITS ---
History of Present Illness Date of Service: 08/17/21 Chief Complaint: TIA,pain This is an unfortunate 76-year-old female with past medical history of CVA with significant right hemiparesis as well as aphasia, HTN, HLD, rheumatoid arthritis, in history of squamous cell carcinoma skin cancer presents to the hospital after her noticed worsening speech as well as her complaining and moaning of significant pain. Patient does not remember what happened but she remembers coming to physical therapy around 1:00 p.m., going to lunch with her after physical therapy around 2:00 p.m.. Her is her soles business programmer and she is completely dependent on him. According to the she has transport chair. She was doing well all day until around 11:00 p.m. when he transported her from her bed to the bedside commode to relieve herself. He put her back into bed. At 2:00 a.m. he had fallen asleep watching hockey game, he heard her moaning, went to bed found her to have incoherent speech, when he tried to move her she started screaming of significant pain and therefore decided to bring her to the hospital. The last thing the patient remember is her going to bed. Her adamantly denies that there has been any trauma or fall within the last 1 week. He reports that she did very well as physical therapy and walked about 100 ft with a walker and physical therapy. On arrival to the ED patient hemodynamically stable with no significant abnormal vitals Labs are significant for WBC count of 1.6 which is chronically low, hemoglobin of 11.2 which is around her baseline, PT of 14.1, INR of 1.2, sodium of 133, COVID-[address] and neck CT angiogram showing no acute intracranial hemorrhage, area of white matter hypoattenuation again noted suggestive of infarcts of uncertain chronicity, no acute vascular abnormality. Hip CT shows comminuted acute left acetabular fracture without significant displacement. Transverse fracture line extending anteriorly through the superio r aspect of this to Bill a. Subcapital right femoral neck fracture. Patient will be admitted for further management Review of Systems Verdana 4l Review of Systems: Yes all other systems are reviewed and Verdana 4d are negative [facility] Medical History CVA (cerebral vascular accident) Essential hypertension Hypertension Proteinuria Pure hypercholesterolemia Rheumatoid arthritis Slurred speech Squamous cell carcinoma of nose Family History Mother Heart problem Father Asthma Surgical History History of appendectomy Social History Household Members: Spouse Housing: House Do you presently have visiting nurse or other home services: Yes Alcohol intake: former Patient Tobacco Use Status: Never used Tobacco e-Cigarette/Vaping Use: Never Used Second Hand Smoke Exposure: No Use of substances other than those prescribed or required for medical reasons: No Advance Directives: No service: No Current occupational status: retired [employer]etr Allergies Allergy/AdvReac Type Severity Reaction Status Date / Time No Known Allergies Allergy Unknown Verified 07/10/21 10:11 [No Known Allergies*] Active Medications: Current Medications Acetaminophen (Acetaminophen 325 Mg Tablet) 650 mg PO Q6H PRN PRN Reason: Pain, Mild (Pain Scale 1-3) Docusate Sodium (Docusate Sodium 100 Mg Capsule) 100 mg PO DAILY PRN PRN Reason: Constipation Hydromorphone HCl (Hydromorphone Hcl 1 Mg/Ml Syringe) 0.5 mg IVPUSH Q4H PRN; Protocol PRN Reason: Pain, Severe (Pain Scale 7-10) Ondansetron HCl (Ondansetron Hcl 4 Mg/2 Ml Vial) 4 mg IVPUSH Q8H PRN PRN Reason: Nausea and Vomiting Pharmacy Consult (Consult Rx Perform Med Rec) 1 each MISCELLANE ONCE PRN PRN Reason: Consult order Sodium Chloride (0.9 % Sodium Chloride Flush 3 Ml Syringe) 3 ml IVFLUSH [facility] Home Medications Medication Instructions Recorded Confirmed Last Taken Type methotrexate sodium 5 tab PO QWEEK 05/10/21 08/17/21 Unknown History 2.5 mg tablet Physical Exam Verdana 4l Vital Signs and Narrative: Verdana 4d Verdana 4d Vital Signs: Verdana 4d Verdana 4Bd Last Vital Signs Verdana 4d Sap Bpc Developer New 4d Sap Bpc Developer New 4d Temp 98.6 F 08/17/21 03:15 Sap Bpc Developer New 4d Pulse 73 08/17/21 03:35 Sap Bpc Developer New 4d Resp 14 08/17/21 05:02 BP 122/61 08/17/21 03:35 Pulse Ox 97 08/17/21 03:15 BMI result Body Mass Index 20.8 Const: General: cooperative Eyes: General: appearance normal, both eyes and all related structures Resp: Effort & Inspection: normal respiratory effort Auscultation: clear to auscultation bilaterally Cardio: Rate: regular rate Rhythm: regular rhythm GI: Palpation (GI): Soft to palpation Auscultation: normal bowel sounds Skin: General skin exam: no rashes or lesions noted Extrem: Other: contracted to the right side. unable to assess neurological fx due to significant pain with any movement. she has chronic hemiparesis of right side Results Labs CBC and Chem 7: 08/17/21 03:24 08/17/21 03:24 Labs: Laboratory Results - last 24 hr 08/17/21 08/17/21 08/17/21 03:24 03:24 03:24 MCV 89.6 MCH 28.3 MCHC 31.5 RDW 19.5 H Plt Count 185 MPV 8.9 L Immature Gran % (Auto) 1.9 H Neut % (Auto) 16.1 L Lymph % (Auto) 55.1 H [place] % (Auto) 23.1 H Eos % (Auto) 3.2 Baso % (Auto) 0.6 Lymph # (Auto) 0.9 L [place] # (Auto) 0.4 Eos # (Auto) 0.1 Baso # (Auto) 0.0 Abs Immat Gran (auto) 0.03 Absolute Neuts (auto) 0.3 L Absolute Nucleated RBC 0.000 Nucleated RBC % (auto) 0.0 Smear Tech's Comments VERIFIED PT INR Anion Gap 13 Estim Creat Clear Calc 59.8 Estimated GFR > 60 POC Glucose Random Glucose 145 H Calcium 8.9 Troponin I High Sens 12.4 COVID-19 (DESIREE) COVID-19 Clin Com 08/17/21 08/17/21 08/17/21 03:24 03:24 03:33 MCV MCH MCHC RDW Plt Count MPV Immature Gran % (Auto) Neut % (Auto) Lymph % (Auto) [place] % (Auto) Eos % (Auto) Baso % (Auto) Lymph # (Auto) [place] # (Auto) Eos # (Auto) Baso # (Auto) Abs Immat Gran (auto) Absolute Neuts (auto) Absolute Nucleated RBC Nucleated RBC % (auto) Smear Tech's Comments PT 14.1 H INR 1.2 H Anion Gap Estim Creat Clear Calc Estimated GFR POC Glucose 128 H Random Glucose Calcium Troponin I High Sens COVID-19 (DESIREE) Negative COVID-19 Clin Com See Note ECG Interpretation: Sinus rhythm , nonspecific T-wave abnormality Imaging Radiologist's Impressions: Impressions Head CT 08/17/21 02:29 IMPRESSION: There are 2 areas of white matter hypoattenuation/encephalomalacia seen, involving the left frontal lobe and right occipital lobe. These are new from 2006 and suggest age-indeterminate infarcts. Chronic infarcts are favored given the extent of hypoattenuation. No intracranial hemorrhage. Chronic volume loss with small vessel ischemic change. This critical result was discussed with Mendez Bearden MD by telephone at 08/17/2021 2:37 AM and it was ascertained that the content and urgency of the report was understood at the time of direct communication. Head/Neck CTA 08/17/21 03:00 IMPRESSION: 1. No acute intracranial hemorrhage. Areas of white matter hypoattenuation again noted, suggestive of infarcts of uncertain chronicity. 2. No acute vascular abnormality. No large vessel occlusion or flow-limiting stenosis. This critical result was discussed with Mendez Bearden MD by telephone at 08/17/2021 3:10 AM and it was ascertained that the content and urgency of the report was understood at the time of direct communication. Hip CT 08/17/21 03:10 IMPRESSION: 1. Comminuted acute left acetabular fracture without significant displacement. This involves the posterior wall with a transverse fracture line extending anteriorly through the superior aspect of the acetabulum. 2. There is also a subcapital right femoral neck fracture noted. This is new from the prior CT performed 05/12/2021 and could be acute. Assessment and Plan (1) Transient cerebral ischemia: Status: Acute (2) Closed hip fracture: Status: Acute (3) Closed pelvic fracture: Status: Acute Plan 76-year-old female with past medical history of CVA and right-sided hemiparesis presents to the hospital with significant pain as well as worsened slurred speech found to have high fracture # hip fractures/acetabulum fracture - patient's denies any recent trauma, patient herself does not remember having any trauma to her hip, no fall - will consult orthopedic surgery - patient on Eliquis most likely will need few days to be off of that before having surgery will hold Eliquis - pain control # TIA? - patient currently back to her baseline per her - unable to assess any neurological deficits - pt on eliquis for hx of thormbus? per her - will hold - neurology consutled # hypertension - stable, resume home medications DVT prophylaxis SCDs Code status DNR DNI Quality Stroke Does the patient have a stroke diagnosis?: No VTE Prior VTE?: No VTE Risk Level:: Medical - moderate - high VTE Device Contraindication: N/A - Device Ordered VTE Drug Contraindication: Treatment Not Indicated
--- NOTE | 2021-08-17 05:31 | PC.NURSE ---
Patient came in with complaints of pain in her left hip. Brought in initially as a stroke protocol. Patient has fracture of pelvis, right hip, and acetabulum and therefore was not removed from EMS linens but brief was removed and caused patient great pain.
--- NOTE | 2021-08-17 05:56 | PC.NURSE ---
Patient needing a catheter but unable to manipulate patient's legs to place stiles. Dr. Allen aware and was okay with periwick placed for the time being.
[2021-08-17] MEDS: ondansetron HCL 4 MG/2 ML VIAL IVPUSH (07:03)
[2021-08-17 07:04] LABS: Basophils Percent Auto 0.9 % (0-2); Eosinophils Percent Auto 0.5 % (0-4); Hematocrit 35.4 % (37.0-47.0); Hemoglobin 10.9 g/dl (12.0-16.0); Imm Gran Abs Auto 0.03 X10*3/uL (0.00-0.03); Imm Gran Pct Auto 1.4 % (0.0-0.4); Lymphocytes Percent Auto 45.5 % (20-40); MANUAL DIFF FLAG SCAN; Mean Corpuscular HGB Conc 30.8 g/dl (31.0-35.0); Mean Corpuscular Hemoglobin 27.5 pg (27.0-33.0); Mean Corpuscular Volume 89.4 fL (80.0-98.0); Mean Platelet Volume 8.9 fL (9.4-12.3); Monocytes Absolute Auto 0.8 X10*3/uL (0.1-1.2); Monocytes Percent Auto 36.6 % (2-11); Neutrophils Absolute Auto 0.3 x10*3/uL (2.0-8.3); Neutrophils Percent Auto 15.1 % (45-73); Platelet Count 176 X10*3/uL (160-400); Red Blood Count 3.96 X10*6/uL (4.20-5.50); Red Cell Distribution Width 19.6 % (11.0-16.0); SCAN SMEAR FLAG 1
[2021-08-17] MEDS: Morphine Sulfate 4 MG/ML CARTRIDGE IVPUSH ×2 (07:04→18:36)
[2021-08-17 07:08] LABS: White Blood Count 2.1 X10*3/uL (4.8-10.8)
--- NOTE | 2021-08-17 07:14 | PC.NURSE ---
Contact made to Hospitalist, Notification regarding episode of vomiting with Low HOB (less than 30 degrees). Pt medicated with PRN morphine and zofran prior to contact with hospitalist.
[2021-08-17 07:29] LABS: Anion Gap 8 (12-20); Blood Urea Nitrogen 10 mg/dL (9-16); Calcium 8.8 mg/dL (8.4-10.2); Carbon Dioxide 27 mmol/L (22-29); Chloride 104 mmol/L (96-108); Estimated Glomerular Filt Rate > 60; Glucose Random 132 mg/dL (60-115); Potassium 4.1 mmol/L (3.3-5.1); Sodium 135 mmol/L (135-145)
--- NOTE | 2021-08-17 07:30 | PC.NURSE ---
Updated swallow eval, Pt failed. will notify MD upon shift change
[2021-08-17] MEDS: Ketorolac Tromethamine 30 MG/ML VIAL 15 MG IVPUSH (07:52)
--- NOTE | 2021-08-17 07:56 | PHA.MEDREC ---
Pharmacy Consult ? Medication Reconciliation Pharmacy has completed the medication reconciliation. Patient is in too much pain to talk. Per claim history patient should only be on 3 tablets of methotrexte. She could not confirm the day of the week she takes methotrexate. Kim Jiang, PharmD
[2021-08-17] MEDS: 0.9 % Sodium Chloride Flush 3 ML SYRINGE IVFLUSH (08:00)
[2021-08-17] MEDS: Dextrose 5 % and Lactated Ring 1,000 ML 80 ML IVCONT (11:26)
--- NOTE | 2021-08-17 12:14 | MHC.SL.SWA ---
Speech Pathologist Impression: Risk of Aspiration Risk of Aspiration Due to: Medically Fragile Neurological Condition Weak Cough Dysphasia Diet Status: No Change Liquid Consistency and Strategies for Safe Swallow: Liquid Intake Recommendation: NPO Liquid Intake Strategies: Solid Food Consistency: Dietary Recommendations: NPO Additional Modifications to Solid Foods: Continue NPO, w/ reattempt at swallow assessment tomorrow a.m., when PT can hopefully tolerate be positioned at least at 40 degrees for 10-15 minutes Oral Medication Intake: NPO Compensatory Strategies and Precautions to be Taken for Safe Swallow: Supervision While Eating and Drinking for Safe Swallow: PO with COSTUME RENTAL CLERK Foods to Avoid: Swallowing Recommended Treatments: Compens. Strategy Educat. Recommendation for Speech: Inpatient Speech Therapy Comment: Pt could not be fully assess for swallow today due to recent hip FX, supine positioning in bed. Nursing advised against elevating head of bed this a.m. Pt was responsive to oral care, produced swallow on trace amounts of water introduced by swab and on ice chip this a.m. MD, Nursing, Mold Swabber advised by secure textof recommendation to continue NPO until Pt can tolerate sitting at least at 40 Degrees for 10-15 minutes in order to re-assess swallow. recommended that COSTUME RENTAL CLERK return 08/18 a.m., and believes Pt will be able to tolerate upright positioning at that time. Frequency/Duration: Date Range for Service Req: Timeline to reassess: Animal Control Licensing Worker Clinican/Clinical Fellow: No Supervisory Statement: I have reviewed and agree with the student/clinical fellow's documentation: N/A Speech Language Pathologist: Shakila Monson M.A., CCC-COSTUME RENTAL CLERK
--- NOTE | 2021-08-17 12:23 | MHC.CM.PN ---
CM MET WITH PT WHO REPORTS SHE LIVES WITH HER AND IS MOSTLY INDEPENDENT AT BASELINE SHE REPORTS SHE DOES USE A WALKER AND HAS A WHEEL CHAIR IF NEEDED PT DENIES HAVING ANY IN HOME SERVICES AT THIS TIME. SHE WAS ACTIVE WITH [facility] IN THE PAST BUT REPORTS THEY WERE DISCONTINUED. PT REPORTS HER PCP IS ANGELICA ROSE AND SHE HAS A HCP ON FILE PT REPORTS SHE HAS HAD THE J&J VACCINE AND A BOOSTER PT ADMITTED WITH A HIP FRACTURE, SHE HAS BEEN TO ACUTE REHAB IN THE PAST BUT REPORTS SHE IS UNSURE IF SHE WOULD WANT TO RETURN TO THAT LOC. SHE WILL PROVIDE REHAB PREFERENCES FOLLOWING HER PT EVAL CURRENT DC PLAN IS TBD STR VS [facility] TRAN[facility] LIKELY TO BE BLS
--- NOTE | 2021-08-17 13:00 | PM.EVENT ---
Event Note Date of Service: 08/17/21 Event Note: Patient was seen and examined today while in the emergency department for right hip fracture Per patient's request I called her and discussed the injury and options available which are surgical wrist as nonsurgical intervention based on her history of being wheelchair-bound. He states that she has been working with physical therapy to ambulate with a walker which she successfully did yesterday walking 100 ft unassisted. The goal would be to get her to walk again with a walker . Will discuss with Dr. Scott to come up with a plan.
--- NOTE | 2021-08-17 13:57 | P.CNNE_ITS ---
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 It was not clear if she had fallen or not. She was somewhat confused and unable to provide any meaningful history. This consultation was requested for any possibility of stroke. Review of Systems Verdana 4l Review of Systems: Verdana 4d Cannot be reliably done Verdana 4d with her. [facility] 4d [facility] Past Medical History Medical History CVA (cerebral vascular accident) Essential hypertension Hypertension Proteinuria Pure hypercholesterolemia Rheumatoid arthritis Slurred speech Squamous cell carcinoma of nose Family History Family History Mother Heart problem Father Asthma Surgical History Surgical History History of appendectomy Social History Social History Household Members: Spouse Housing: House Do you presently have visiting nurse or other home services: Yes Alcohol intake: former Patient Tobacco Use Status: Never used Tobacco e-Cigarette/Vaping Use: Never Used Second Hand Smoke Exposure: No Use of substances other than those prescribed or required for medical reasons: No Advance Directives: No service: No Current occupational status: retired Meds Allergies Allergy/AdvReac Type Severity Reaction Status Date / Time No Known Allergies Allergy Unknown Verified 07/10/21 10:11 [No Known Allergies*] Active Medications: Current Medications Acetaminophen (Acetaminophen 325 Mg Tablet) 650 mg PO Q6H PRN PRN Reason: Pain, Mild (Pain Scale 1-3) Docusate Sodium (Docusate Sodium 100 Mg Capsule) 100 mg PO DAILY PRN PRN Reason: Constipation Hydromorphone HCl (Hydromorphone Hcl 1 Mg/Ml Syringe) 0.5 mg IVPUSH Q4H PRN; Protocol PRN Reason: Pain, Severe (Pain Scale 7-10) Dextrose/Lactated Ringer's (D5lr) 1,000 mls @ 80 mls/hr IVCONT .[id number] RICHARD Last Admin: 08/17/21 11:26 Dose: 80 mls/hr Documented by: Lactulose (Lactulose 20 Gm/30 Ml Solution) 10 gm PO BEDTIME PRN PRN Reason: constipation Methotrexate (Methotrexate Sodium 2.5 Mg Tablet) 7.5 mg PO Q7D [facility] Morphine Sulfate (Morphine Sulfate 4 Mg/Ml Cartridge) 4 mg IVPUSH Q4H PRN; Protocol PRN Reason: Pain, Severe (Pain Scale 7-10) Last Admin: 08/17/21 07:04 Dose: 4 mg Documented by: Ondansetron HCl (Ondansetron Hcl 4 Mg/2 Ml Vial) 4 mg IVPUSH Q8H PRN PRN Reason: Nausea and Vomiting Last Admin: 08/17/21 07:03 Dose: 4 mg Documented by: Pharmacy Consult (Consult Rx Perform Med Rec) 1 each MISCELLANE ONCE PRN PRN Reason: Consult order Sodium Chloride (0.9 % Sodium Chloride Flush 3 Ml Syringe) 3 ml IVFLUSH QSHIFT RICHARD Last Admin: 08/17/21 12:29 Dose: Not Given Documented by: Home Medications Medication Instructions Recorded Confirmed Last Taken Type methotrexate sodium 3 tab PO QWEEK 05/10/21 08/17/21 Unknown History 2.5 mg tablet folic acid 1 mg 1 tab PO DAILY 08/17/21 08/17/21 Unknown History tablet Physical Exam Verdana 4l Vital Signs: Verdana 4d Verdana 4d Vital Signs: Verdana 4d Verdana 4Bd Last Vital Signs Verdana 4d Cuff Folder New 4d Cuff Folder New 4d Temp 98.6 F 08/17/21 03:15 Cuff Folder New 4d Pulse 79 08/17/21 06:14 Cuff Folder New 4d Resp 16 08/17/21 06:14 BP 139/67 08/17/21 06:14 Pulse Ox 100 08/17/21 06:14 BMI result Body Mass Index 20.8 Neuro: Other: She is alert and awake spontaneously speaking in following simple commands. There is moderate right hemiparesis. Also there is left-sided facial flatness. She is able to wiggle her toes. She was not sure what had happened. She did not seem to be any distress but stated that she had pain on both sides. Results Labs CBC & Chem 7: 08/17/21 06:59 08/17/21 06:59 Labs: Short CBC 08/17/21 08/17/21 Range/Units 03:24 06:59 WBC 1.6 L 2.1 L (4.8-10.8) X10*3/uL Hgb 11.2 L 10.9 L (12.0-16.0) g/dl Hct 35.5 L 35.4 L (37.0-47.0) % Plt Count 185 176 (160-400) X10*3/uL BMP 08/17/21 08/17/21 03:24 06:59 Sodium 135 135 Potassium 3.7 4.1 Chloride 102 104 Carbon Dioxide 24 27 BUN 10 10 Creatinine 0.74 0.68 Calcium [address] revealed extensive chronic microvascular disease in couple of moderate- size area of chronic ischemic infarction in left middle cerebral artery area. Also noted were multiple fractures on her bone imaging. 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 She also has extensive chronic microvascular disease of brain. Combination of this could result in right hemiparesis difficulty speaking and dementia. It is not clear if she had any new stroke-like symptom. This type of brain pathology can result in further stroke or seizure disorder. But I would also pay attention to alternate etiology including fracture resulting in pain and then affecting her mind. As far as brain situation is concerned, no aggressive measures are recommended. I would continue baby aspirin daily and blood pressure control. Mainstay of management should be finding a safe place for to reside and taking care of fractures. Procedures Date of Service Date of Service: 08/17/21
--- NOTE | 2021-08-17 14:56 | PC.NURSE ---
Pt given repeated education regarding NPO status. oral care preformed. Pt needs frequent orientation regarding why she is being evaluated at ED
[2021-08-17] MEDS: HYDROmorphone HCl 1 MG/ML SYRINGE 0.5 MG IVPUSH ×2 (15:10→20:13)
--- NOTE | 2021-08-17 16:41 | PC.NURSE ---
Report given to maikel going to bed 4
--- NOTE | 2021-08-17 21:14 | P.CONOP_ITS ---
History of Present Illness HPI Consult date: 08/17/21 <Alma Delia Rodriguez PA-C - Last Filed: 08/17/21 21:26> Chief complaint: Preoperative cardiovascular risk stratification <Alma Delia Rodriguez PA-C - Last Filed: 08/17/21 21:26> Narrative: Ms. Infante is a 76 yo female with a past medical history of CVA with significant right hemiparesis as well as aphasia, HTN, HLD, rheumatoid arthritis, history of squamous cell carcinoma skin cancer presents to the hospital after her noticed worsening speech as well as her complaining and moaning of significant pain.?Since her stroke in November of 2020, she has developed right sided hemiparesis and he helps her transport from wheelchair to bed , toilet or chair. She has been working with [facility] to gain strength. Yesterday he mentioned she was in PT and was able to ambualte with a walker without assistance 100ft. He states when they got home from therapy, they went about their normal routine, watched TV and then he got her to bed. He helped her to the commode and then into bed. He states he was in the living room watching tv and he heard her moaning around 2am and went to check on her. He noticed she had been slurring her speech and seemed to have pain in the right leg so he called EMS. She was transported to the ED where work up was obtained, CT of the head and hip/pelvis. CT of the hip/pelvis showed a new right subcapital fracture of the femur. She was admitted to the medical service for further managmeent and work up of TIA and orthopedics was consulted for the right hip. <Alma Delia Rodriguez PA-C - Last Filed: 08/17/21 21:26> Review of Systems Verdana 4l Review of Systems: Verdana 4d as per HPI Verdana 4d Verdana 4d Verdana 4Il <Alma Delia Rodriguez PA-C - Last Filed: 08/17/21 21:26> Verdana 4d Yes all other systems are reviewed and are negative Verdana 4Il <VJ Chance Last Filed: 08/17/21 21:26> Verdana 4d [facility] Past Medical History Medical History: Medical History CVA (cerebral vascular accident) Essential hypertension Hypertension Proteinuria Pure hypercholesterolemia Rheumatoid arthritis Slurred speech Squamous cell carcinoma of nose <Alma Delia Rodriguez PA-C - Last Filed: 08/17/21 21:26> Family History Family History: Family History Mother Heart problem Father Asthma <Alma Delia Rodriguez PA-C - Last Filed: 08/17/21 21:26> Surgical History Surgical History: Surgical History History of appendectomy <Alma Delia Rodriguez PA-C - Last Filed: 08/17/21 21:26> Social History Social History: Social History Household Members: Spouse Housing: House Do you presently have visiting nurse or other home services: Yes Alcohol intake: former Patient Tobacco Use Status: Never used Tobacco e-Cigarette/Vaping Use: Never Used Second Hand Smoke Exposure: No Use of substances other than those prescribed or required for medical reasons: No Advance Directives: No service: No Current occupational status: retired <Alma Delia Rodriguez PA-C - Last Filed: 08/17/21 21:26> Meds Allergies/Adverse reactions: Allergies Allergy/AdvReac Type Severity Reaction Status Date / Time No Known Allergies Allergy Unknown Verified 07/10/21 10:11 [No Known Allergies*] <Alma Delia Rodriguez PA-C - Last Filed: 08/17/21 21:26> Active Medications: Current Medications Acetaminophen (Acetaminophen 325 Mg Tablet) 650 mg PO Q6H PRN PRN Reason: Pain, Mild (Pain Scale 1-3) Aspirin (Aspirin Enteric Coated 81 Mg Tablet.Dr) 81 mg PO DAILY RICHARD Docusate Sodium (Docusate Sodium 100 Mg Capsule) 100 mg PO DAILY PRN PRN Reason: Constipation Hydromorphone HCl (Hydromorphone Hcl 1 Mg/Ml Syringe) 0.5 mg IVPUSH Q4H PRN; Protocol PRN Reason: Pain, Severe (Pain Scale 7-10) Last Admin: 08/17/21 20:13 Dose: 0.5 mg Documented by: Dextrose/Lactated Ringer's (D5lr) 1,000 mls @ 80 mls/hr IVCONT .[id number] [facility] Last Admin: 08/17/21 11:26 Dose: 80 mls/hr Documented by: Lactulose (Lactulose 20 Gm/30 Ml Solution) 10 gm PO BEDTIME PRN PRN Reason: constipation Methotrexate (Methotrexate Sodium 2.5 Mg Tablet) 7.5 mg PO Q7D [facility] Morphine Sulfate (Morphine Sulfate 4 Mg/Ml Cartridge) 4 mg IVPUSH Q4H PRN; Protocol PRN Reason: Pain, Severe (Pain Scale 7-10) Last Admin: 08/17/21 18:36 Dose: 4 mg Documented by: Ondansetron HCl (Ondansetron Hcl 4 Mg/2 Ml Vial) 4 mg IVPUSH Q8H PRN PRN Reason: Nausea and Vomiting Last Admin: 08/17/21 07:03 Dose: 4 mg Documented by: Pharmacy Consult (Consult Rx Perform Med Rec) 1 each MISCELLANE ONCE PRN PRN Reason: Consult order Sodium Chloride (0.9 % Sodium Chloride Flush 3 Ml Syringe) 3 ml IVFLUSH QSHIFT [facility] Last Admin: 08/17/21 12:29 Dose: Not Given Documented by: <Alma Delia Rodriguez PA-C - Last Filed: 08/17/21 21:26> Home medications: Home Medications Medication Instructions Recorded Confirmed Last Taken Type methotrexate sodium 3 tab PO TU 05/10/21 08/18/21 Unknown History 2.5 mg tablet folic acid 1 mg 1 tab PO DAILY 08/17/21 08/17/21 Unknown History tablet <Alma Delia Rodriguez PA-C - Last Filed: 08/17/21 21:26> Physical Exam Verdana 4l Vital Signs: Verdana 4d Verdana 4d Vital Signs: Verdana 4d Verdana 4Bd Last Vital Signs Verdana 4d [employer] Operator New 4d [employer] Press Operator New 4d Temp 98.5 F 08/17/21 20:09 Steam Clothes Press Operator New 4d Pulse 90 08/17/21 20:09 Steam Clothes Press Operator New 4d Resp 18 08/17/21 20:13 BP 135/65 08/17/21 20:09 Pulse Ox 98 08/17/21 20:09 BMI result Body Mass Index 20.8 <Alma Delia Rodriguez PA-C - Last Filed: 08/17/21 21:26> Const: General: cooperative, no acute distress and alert <Alma Delia Rodriguez PA-C - Last Filed: 08/17/21 21:26> Extrem: Other: Right lower extremity in tender to palpation, pain with log roll. Unable to SLR. <Alma Delia Rodriguez PA-C - Last Filed: 08/17/21 21:26> Results Labs Result Diagrams: : 08/18/21 06:40 08/18/21 06:40 <Alma Delia Rodriguez PA-C - Last Filed: 08/17/21 21:26> Labs: Abnormal lab results 08/17/21 08/17/21 08/17/21 Range/Units 03:24 03:24 03:24 WBC 1.6 L (4.8-10.8) X10*3/uL RBC 3.96 L (4.20-5.50) X10*6/uL Hgb 11.2 L (12.0-16.0) g/dl Hct 35.5 L (37.0-47.0) % MCHC (31.0-35.0) g/dl RDW 19.5 H (11.0-16.0) % MPV 8.9 L (9.4-12.3) fL Immature Gran % (Auto) 1.9 H (0.0-0.4) % Neut % (Auto) 16.1 L (45-73) % Lymph % (Auto) 55.1 H (20-40) % Rhea % (Auto) 23.1 H (2-11) % Lymph # (Auto) 0.9 L (1.2-4.9) X10*3/uL Absolute Neuts (auto) 0.3 L (2.0-8.3) x10*3/uL PT 14.1 H (9.9-13.0) SEC INR 1.2 H (0.9-1.1) Anion Gap (12-20) POC Glucose (60-115) mg/dL Random Glucose 145 H (60-115) mg/dL 08/17/21 08/17/21 08/17/21 Range/Units 03:33 06:59 06:59 WBC 2.1 L (4.8-10.8) X10*3/uL RBC 3.96 L (4.20-5.50) X10*6/uL Hgb 10.9 L (12.0-16.0) g/dl Hct 35.4 L (37.0-47.0) % MCHC 30.8 L (31.0-35.0) g/dl RDW 19.6 H (11.0-16.0) % MPV 8.9 L (9.4-12.3) fL Immature Gran % (Auto) 1.4 H (0.0-0.4) % Neut % (Auto) 15.1 L (45-73) % Lymph % (Auto) 45.5 H (20-40) % Rhea % (Auto) 36.6 H (2-11) % Lymph # (Auto) 1.0 L (1.2-4.9) X10*3/uL Absolute Neuts (auto) 0.3 L (2.0-8.3) x10*3/uL PT (9.9-13.0) SEC INR (0.9-1.1) Anion Gap 8 L (12-20) POC Glucose 128 H (60-115) mg/dL Random Glucose 132 H (60-115) mg/dL H & H 08/17/21 08/17/21 Range/Units 03:24 06:59 Hgb 11.2 L 10.9 L (12.0-16.0) g/dl Hct 35.5 L 35.4 L (37.0-47.0) % Coagulation 08/17/21 Range/Units 03:24 INR 1.2 H (0.9-1.1) All other labs normal. <VJ Chance Last Filed: 08/17/21 21:26> Diagnostic results Hip x-ray: image reviewed (impacted femoral neck fracture) <VJ Chance Last Filed: 08/17/21 21:26> Assessment and Plan (1) Closed hip fracture: Status: Acute <VJ Chance Last Filed: 08/17/21 21:26> Plan I met with the patient at bedside this morning and she mentioned she is primarily wheelchair bound and depends on her for all care. She asked that I speak with him directly regarding her situation and options. I spoke with John, the patients , and explained to him the extend of the injury and options available. I explained in patients who are sedentary, wheelchair bound and do not walk, there are increased risks with surgical int ervention such as dislocation and need for further surgeries. While he does express his understanding, he feels she has been progressing with PT and if the surgery would allow her to get up and ambulate, he may be interested in this option. I explained to him the risk, benefits and alternatives. Risk including but not limited to infection, dislocations, wound breakdown, blood clots, periprosthetic fracture and decline in health. He does understand all this and will consider his options. In the meantime, we are going to obtain medical / cardiac clearance to determine her level of risk for surgery. <Alma Delia Rodriguez PA-C - Last Filed: 08/17/21 21:26> Procedures Date of Service Date of Service: 08/17/21 <Alma Delia Rodriguez PA-C - Last Filed: 08/17/21 21:26>
[2021-08-18] VITALS (13 sets, daily range): BP systolic 119–165; BP diastolic 63–78; PULSE 68–90; RESP 12–18; TEMP 36.2–37.4; O2SAT 96–100
[2021-08-18] MEDS: Dextrose 5 % and Lactated Ring 1,000 ML 80 ML IVCONT ×2 (01:42→15:43)
[2021-08-18] MEDS: 0.9 % Sodium Chloride Flush 3 ML SYRINGE IVFLUSH (01:42)
[2021-08-18 06:51] LABS: Hematocrit 31.7 % (37.0-47.0); Hemoglobin 9.7 g/dl (12.0-16.0); Mean Corpuscular HGB Conc 30.6 g/dl (31.0-35.0); Mean Corpuscular Hemoglobin 27.8 pg (27.0-33.0); Mean Corpuscular Volume 90.8 fL (80.0-98.0); Platelet Count 156 X10*3/uL (160-400); Red Blood Count 3.49 X10*6/uL (4.20-5.50); Red Cell Distribution Width 19.5 % (11.0-16.0)
[2021-08-18 06:52] LABS: White Blood Count 1.9 X10*3/uL (4.8-10.8)
[2021-08-18 07:19] LABS: Anion Gap 8 (12-20); Blood Urea Nitrogen 8 mg/dL (9-16); Calcium 8.4 mg/dL (8.4-10.2); Carbon Dioxide 26 mmol/L (22-29); Chloride 105 mmol/L (96-108); Creatinine Clr Calc Pharmacy 71.3; Estimated Glomerular Filt Rate > 60; Glucose Random 121 mg/dL (60-115); Potassium 4.1 mmol/L (3.3-5.1); Sodium 135 mmol/L (135-145)
[2021-08-18 07:51] LABS: Glucose, Whole Blood 112 mg/dL (60-115)
--- NOTE | 2021-08-18 10:35 | P.CONCA_ITS ---
History of Present Illness History of Present Illness Date of Service: 08/18/21 Requesting physician: Baron Aleman Consult reason: pre-op evaluation Chief complaint: Preoperative cardiovascular risk stratification Narrative: I was requested to see Michelle in cardiology consultation today for preoperative cardiovascular risk stratification for hip surgery. History was obtained from the patient and more importantly from the over the telephone. Patient is a limited historian. 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 She came to the hospital because of significant pain and altered mental status/speech and suspicion for recurrent TIA. However she was noted to have fracture of right hip and she is planned for urgently to undergo hip repair under general anesthesia. This is for best future outcome. This findings were discussed with patient's . Patient is very frail. Currently not having any cardiac symptoms. As per the she has never had prior cardiac issues. No sym ptoms of prior myocardial infarction or coronary artery disease in the last 7-8 months she has been very limited in her activity level because of the stroke although walks with help of walker up to 100 ft in the physical therapy and has had no chest pain. There is no reported symptoms of shortness of breath, orthopnea, PND. Echocardiogram done in November at [facility] at show normal LV systolic function. Her echocardiogram done in April here at shown reduced LV systolic function of 44% with regional wall motion abnormality which is suggestive underlying coronary artery disease. Patient has never had any evaluation for coronary artery disease as per the . 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 She does have risk factors of hypertension and hyperlipidemia. She has prior history of rheumatoid arthritis as well. Review of Systems Verdana 4l Review of Systems: Yes Unobtainable due to mental status Verdana 4d [facility] Past Medical History Medical History CVA (cerebral vascular accident) Essential hypertension Hypertension Proteinuria Pure hypercholesterolemia Rheumatoid arthritis Slurred speech Squamous cell carcinoma of nose Family History Family History Mother Heart problem Father Asthma Surgical History Surgical History History of appendectomy Social History Social History Household Members: Spouse Housing: House Do you presently have visiting nurse or other home services: Yes Alcohol intake: former Patient Tobacco Use Status: Never used Tobacco e-Cigarette/Vaping Use: Never Used Second Hand Smoke Exposure: No Use of substances other than those prescribed or required for medical reasons: No Advance Directives: No service: No Current occupational status: retired QA on Requests Allergies Allergy/AdvReac Type Severity Reaction Status Date / Time No Known Allergies Allergy Unknown Verified 07/10/21 10:11 [No Known Allergies*] Active Medications: Current Medications Acetaminophen (Acetaminophen 325 Mg Tablet) 650 mg PO Q6H PRN PRN Reason: Pain, Mild (Pain Scale 1-3) Aspirin (Aspirin Enteric Coated 81 Mg Tablet.Dr) 81 mg PO DAILY RICHARD Docusate Sodium (Docusate Sodium 100 Mg Capsule) 100 mg PO DAILY PRN PRN Reason: Constipation Hydromorphone HCl (Hydromorphone Hcl 1 Mg/Ml Syringe) 0.5 mg IVPUSH Q4H PRN; Protocol PRN Reason: Pain, Severe (Pain Scale 7-10) Last Admin: 08/17/21 20:13 Dose: 0.5 mg Documented by: Dextrose/Lactated Ringer's (D5lr) 1,000 mls @ 80 mls/hr IVCONT .[id number] RICHARD Last Admin: 08/18/21 01:42 Dose: 80 mls/hr Documented by: Lactulose (Lactulose 20 Gm/30 Ml Solution) 10 gm PO BEDTIME PRN PRN Reason: constipation Methotrexate (Methotrexate Sodium 2.5 Mg Tablet) 7.5 mg PO [facility] [place], [place] Morphine Sulfate (Morphine Sulfate 4 Mg/Ml Cartridge) 4 mg IVPUSH Q4H PRN; Protocol PRN Reason: Pain, Severe (Pain Scale 7-10) Last Admin: 08/17/21 18:36 Dose: 4 mg Documented by: Ondansetron HCl (Ondansetron Hcl 4 Mg/2 Ml Vial) 4 mg IVPUSH Q8H PRN PRN Reason: Nausea and Vomiting Last Admin: 08/17/21 07:03 Dose: 4 mg Documented by: Pharmacy Consult (Consult Rx Perform Med Rec) 1 each MISCELLANE ONCE PRN PRN Reason: Consult order Sodium Chloride (0.9 % Sodium Chloride Flush 3 Ml Syringe) [facility] Last Admin: 08/18/21 01:42 Dose: 3 ml Documented by: Home Medications Medication Instructions Recorded Confirmed Last Taken Type methotrexate sodium 3 tab PO TU 05/10/21 08/18/21 Unknown History 2.5 mg tablet folic acid 1 mg 1 tab PO DAILY 08/17/21 08/17/21 Unknown History tablet Physical Exam Verdana 4l Vital Signs: Verdana 4d Verdana 4d Vital Signs: Verdana 4d Verdana 4Bd Last Vital Signs Verdana 4d Custodial Services Manager New 4d Custodial Services Manager New 4d Temp 97.8 F 08/18/21 08:07 Custodial Services Manager New 4d Pulse 68 08/18/21 08:07 Custodial Services Manager New 4d Resp 12 08/18/21 08:07 BP 134/73 08/18/21 08:07 Pulse Ox 100 08/18/21 08:07 BMI result Body Mass Index 20.8 Const: General: cooperative, comfortable, no acute distress, alert and awake Nutritional Appearance: thin and other (Frail appearing elderly woman) Orientation/consciousness: oriented to place and oriented to time HENMT: Head: Yes normocephalic, Yes atraumatic and Yes other (Poor oral hygiene) Neck: Neck: Yes trachea midline, Yes supple and Yes no JVD Resp: Effort & Inspection: normal respiratory effort Auscultation: clear to auscultation bilaterally Cardio: Jugular venous distension: no JVD Palpation: normal PMI Rate: regular rate Rhythm: regular rhythm Heart sounds: S1 normal heart sound present, S2 normal heart sound present, no click, no gallops and no murmurs GI: Auscultation: normal bowel sounds Skin: General skin exam: no rashes or lesions noted and ecchymosis Neuro: General: oriented to place, oriented to time and no focal motor deficits Extrem: General: Yes no clubbing, cyanosis or edema Objective Labs and Meds Result diagrams: 08/18/21 06:40 08/18/21 06:40 Lab results: Laboratory Results - last 24 hr 08/18/21 08/18/21 08/18/21 06:40 06:40 07:47 WBC 1.9 L RBC 3.49 L Hgb 9.7 L Hct 31.7 L MCV 90.8 MCH 27.8 MCHC 30.6 L RDW 19.5 H Plt Count 156 L MPV 9.0 L Absolute Nucleated RBC 0.000 Nucleated RBC % (auto) 0.0 Sodium 135 Potassium 4.1 Chloride 105 Carbon Dioxide 26 Anion Gap 8 L BUN 8 L Creatinine 0.62 Estim Creat Clear Calc 71.3 Estimated GFR > 60 POC Glucose 112 Random Glucose 121 H Calcium 8.4 EKG shows normal sinus rhythm with no clear Q-waves or acute ST T wave changes Assessment and Plan (1) Preoperative cardiovascular examination: Status: Acute Preoperative cardiovascular risk stratification elderly woman who had a right hip fracture of unclear etiology to undergo urgent repair of the right hip to improve quality of life as well as future survival, to be done under general anesthesia, in the recent last 6 months poor functional capacity with frailty as well as evidence of vascular disease and also evidence by echocardiogram of having underlying coronary artery disease with mildly reduced LV systolic function inferior wall motion abnormality suggestive underlying coronary disease. Patient has had no recent symptoms suggestive angina and clinically he is not in heart failure. However given her unknown coronary status, there is higher risk for perioperative cardiovascular morbidity mortality especially risk for having myocardial infarction. Would avoid sudden fluid shifts and avoid hypotension and aggressively treat hypertension. Close hemodynamic monitoring through the surgery. Replace blood loss aggressively and maintain hematocrit over 30. Manage myocardial ischemia in the perioperative time. Please let me know of the any issues during the surgery. Postoperatively monitor on cardiac telemetry and obtain EKGs postoperatively on a daily basis for 2 days. Her Eliquis has been withheld for planned surgery. Resume as soon as possible post surgery. Will follow with you. Procedures Date of Service Date of Service: 08/18/21
--- NOTE | 2021-08-18 10:50 | PC.NURSE ---
Pt Awakens to name, oriented to person and place only but admits to president. States no pain unless moved, confused at times. Henriquez in place draining clear yellow urine, AM care provided, blanket folded between legs at this time. Unable to raise bed due to pt inable to tolerate at this time from hip FX. Report given to short stay plan for OR at 1130. Call magaña within reach, will continue to monitor.
--- NOTE | 2021-08-18 11:37 | P.PNIM_ITS ---
Subjective Subjective Date of Service: 08/18/21 Interval History: the patient was seen and evaluated this morning Laying in bed, feels comfortable overall and denying any pain in her head Seems more coherent today and her speech is much better Denies any fever, chills or chest pain No reported other overnight events. Systemic review: No fever, chills or weakness No chest pain, palpitation No shortness of breath or coughing No abdominal pain, nausea or vomiting No urinary symptoms No any rash or wounds Physical Exam Verdana 4l Vital Signs: Verdana 4d Verdana 4d Vital Signs: Verdana 4d Verdana 4Bd Last Vital Signs Verdana 4d Borematic Operator New 4d Borematic Operator New 4d Temp 97.8 F 08/18/21 08:07 Borematic Operator New 4d Pulse 68 08/18/21 08:07 Borematic Operator New 4d Resp 12 08/18/21 08:07 BP 134/73 08/18/21 08:07 Pulse Ox 100 08/18/21 08:07 BMI result Body Mass Index 20.8 Const: Other: Constitutional : Alert, oriented, not in distress Neck : Normal inspection, Supple Cardiovascular : RRR, S1 S2, no lower extremity edema Respiratory : Good bilateral air entry, no crackles, wheezes or rhonchi Gastrointestinal: soft, lax, Normal bowel sounds, Non tender Skin : Warm, Dry Ext: Right leg externally rotated and shorter Neurological : Alert & oriented x3, right-sided hemiparesis Objective Data Active Medications Acetaminophen (Acetaminophen 325 Mg Tablet) 650 mg PO Q6H PRN PRN Reason: Pain, Mild (Pain Scale 1-3) Aspirin (Aspirin Enteric Coated 81 Mg Tablet.Dr) 81 mg PO DAILY [facility] Docusate Sodium (Docusate Sodium 100 Mg Capsule) 100 mg PO DAILY PRN PRN Reason: Constipation Hydromorphone HCl (Hydromorphone Hcl 1 Mg/Ml Syringe) 0.5 mg IVPUSH Q4H PRN; Protocol PRN Reason: Pain, Severe (Pain Scale 7-10) Last Admin: 08/17/21 20:13 Dose: 0.5 mg Documented by: PRUDENCIO Dextrose/Lactated Ringer's (D5lr) 1,000 mls @ 80 mls/hr IVCONT .[id number] [facility] Last Admin: 08/18/21 01:42 Dose: 80 mls/hr Documented by: PRUDENCIO Cefazolin Sodium/Dextrose (Ancef) 2 gm in 50 mls @ 100 mls/hr IV PREOP ONE Stop: 08/18/21 11:42 Lactulose (Lactulose 20 Gm/30 Ml Solution) 10 gm PO BEDTIME PRN PRN Reason: constipation Methotrexate (Methotrexate Sodium 2.5 Mg Tablet) 7.5 mg PO [facility] [place] Morphine Sulfate (Morphine Sulfate 4 Mg/Ml Cartridge) 4 mg IVPUSH Q4H PRN; Protocol PRN Reason: Pain, Severe (Pain Scale 7-10) Last Admin: 08/17/21 18:36 Dose: 4 mg Documented by: MONICA Ondansetron HCl (Ondansetron Hcl 4 Mg/2 Ml Vial) 4 mg IVPUSH Q8H PRN PRN Reason: Nausea and Vomiting Last Admin: 08/17/21 07:03 Dose: 4 mg Documented by: KEELY Pharmacy Consult (Consult Rx Perform Med Rec) 1 each MISCELLANE ONCE PRN PRN Reason: Consult order Sodium Chloride (0.9 % Sodium Chloride Flush 3 Ml Syringe) 3 ml IVFLUSH [facility] Last Admin: 08/18/21 01:42 Dose: 3 ml Documented by: PRUDENCOI Labs CBC & Chem 7: 08/18/21 06:40 08/18/21 06:40 Labs: Laboratory Results - last 24 hr 08/18/21 08/18/21 08/18/21 06:40 06:40 07:47 MCV 90.8 MCH 27.8 MCHC 30.6 L RDW 19.5 H Plt Count 156 L MPV 9.0 L Absolute Nucleated RBC 0.000 Nucleated RBC % (auto) 0.0 Anion Gap 8 L Estim Creat Clear Calc 71.3 Estimated GFR > 60 POC Glucose 112 Random Glucose 121 H Calcium 8.4 Assessment and Plan (1) Right hemiparesis: Status: Acute (2) Closed hip fracture: Status: Acute Plan 76-year-old female with past medical history of CVA and right-sided hemiparesis presents to the hospital with significant pain as well as worsened slurred speech found to have high fracture # hip fractures/acetabulum fracture Plan for surgery today Cleared by Cardiology, carries high risk for perioperative cardiovascular risk of infarction Keep HP about 30 To restart Eliquis once cleared by surgery pain control # history of CVA Patient around her baseline Neurology input appreciated, no acute findings # hypertension stable, resume home medications DVT prophylaxis SCDs Code status DNR DNI Quality Stroke Does the patient have a stroke diagnosis?: No VTE Prior VTE?: No VTE Risk Level:: Medical - moderate - high VTE Device Contraindication: N/A - Device Ordered VTE Drug Contraindication: Treatment Not Indicated
--- NOTE | 2021-08-18 11:38 | PC.NURSE ---
Pt to OR at this time.
--- NOTE | 2021-08-18 12:13 | MHC.SHP ---
Pre-Procedural Eval Section A Date of Service: 08/18/21 The patient is an INPATIENT: Yes Changes since office visit: Yes Patient answered all questions; No Cold of Flu in the past 2 weeks, No New Medical Problems and No Changes in Medication The History & Physical has been completed within 30 days and I have reviewed it.: Yes Section B Chief Complaint: Preoperative cardiovascular risk stratification Allergies: Allergies Allergy/AdvReac Type Severity Reaction Status Date / Time No Known Allergies Allergy Unknown Verified 07/10/21 10:11 [No Known Allergies*] Plan I have reviewed the history and physical and performed a pertinent physical examination on my patient. No changes have occurred unless specified.
--- NOTE | 2021-08-18 13:08 | HO.ANESPROP2 ---
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 (Acute) Pure hypercholesterolemia (Acute) CVA (cerebral vascular accident) (Acute) Essential hypertension (Acute) Proteinuria (Acute) Rheumatoid arthritis (Acute) Edema of both lower extremities (Acute) Past Medical History Medical History CVA (cerebral vascular accident) Essential hypertension Hypertension Proteinuria Pure hypercholesterolemia Rheumatoid arthritis Slurred speech Squamous cell carcinoma of nose Family History Family History Mother Heart problem Father Asthma Family history of problems with anesthesia: No Surgical History Surgical History History of appendectomy History of Problems with Anesthesia: No Social History Social History Household Members: Spouse Housing: House Do you presently have visiting nurse or other home services: Yes Alcohol intake: former Patient Tobacco Use Status: Never used Tobacco e-Cigarette/Vaping Use: Never Used Second Hand Smoke Exposure: No Use of substances other than those prescribed or required for medical reasons: No Are you DNR?: Yes Advance Directives: No service: No Current occupational status: retired Meds Allergies Allergy/AdvReac Type Severity Reaction Status Date / Time No Known Allergies Allergy Unknown Verified 07/10/21 10:11 [No Known Allergies*] Active Medications: Current Medications Acetaminophen (Acetaminophen 325 Mg Tablet) 650 mg PO Q6H PRN PRN Reason: Pain, Mild (Pain Scale 1-3) Aspirin (Aspirin Enteric Coated 81 Mg Tablet.Dr) 81 mg PO DAILY RICHARD Docusate Sodium (Docusate Sodium 100 Mg Capsule) 100 mg PO DAILY PRN PRN Reason: Constipation Hydromorphone HCl (Hydromorphone Hcl 1 Mg/Ml Syringe) 0.5 mg IVPUSH Q4H PRN; Protocol PRN Reason: Pain, Severe (Pain Scale 7-10) Last Admin: 08/17/21 20:13 Dose: 0.5 mg Documented by: Dextrose/Lactated Ringer's (D5lr) 1,000 mls @ 80 mls/hr IVCONT .[id number] [facility] Last Admin: 08/18/21 01:42 Dose: 80 mls/hr Documented by: Lactulose (Lactulose 20 Gm/30 Ml Solution) 10 gm PO BEDTIME PRN PRN Reason: constipation Methotrexate (Methotrexate Sodium 2.5 Mg Tablet) 7.5 mg PO [facility] [place] Morphine Sulfate (Morphine Sulfate 4 Mg/Ml Cartridge) 4 mg IVPUSH Q4H PRN; Protocol PRN Reason: Pain, Severe (Pain Scale 7-10) Last Admin: 08/17/21 18:36 Dose: 4 mg Documented by: Ondansetron HCl (Ondansetron Hcl 4 Mg/2 Ml Vial) 4 mg IVPUSH Q8H PRN PRN Reason: Nausea and Vomiting Last Admin: 08/17/21 07:03 Dose: 4 mg Documented by: Pharmacy Consult (Consult Rx Perform Med Rec) 1 each MISCELLANE ONCE PRN PRN Reason: Consult order Sodium Chloride (0.9 % Sodium Chloride Flush 3 Ml Syringe) 3 ml IVFLUSH QSHIFT [facility] Last Admin: 08/18/21 12:25 Dose: Not Given Documented by: Home Medications Medication Instructions Recorded Confirmed Last Taken Type methotrexate sodium 2.5 mg tablet 3 tab PO 05/10/21 08/18/21 Unknown History folic acid 1 mg tablet 1 tab PO DAILY 08/17/21 08/17/21 Unknown History Exam Exam Date and Time: August 18, 2021 1308 Height,Weight and Vital Signs: Height 5 ft 5 in Weight 56.792 kg Last Vital Signs Temp 98.5 F 08/18/21 12:03 Pulse 79 08/18/21 12:03 Resp 18 08/18/21 12:03 BP 156/70 H 08/18/21 12:03 Pulse Ox 99 08/18/21 12:03 Pertinent Lab Results Pertinent Lab Results: Laboratory Tests 08/17/21 08/17/21 08/17/21 03:24 03:24 03:24 WBC 1.6 L RBC 3.96 L Hgb 11.2 L Hct 35.5 L MCV 89.6 MCH 28.3 MCHC 31.5 RDW 19.5 H Plt Count 185 MPV 8.9 L Immature Gran % (Auto) 1.9 H Neut % (Auto) 16.1 L Lymph % (Auto) 55.1 H [place] % (Auto) 23.1 H Eos % (Auto) 3.2 Baso % (Auto) 0.6 Lymph # (Auto) 0.9 L [place] # (Auto) 0.4 Eos # (Auto) 0.1 Baso # (Auto) 0.0 Abs Immat Gran (auto) 0.03 Absolute Neuts (auto) 0.3 L Absolute Nucleated RBC 0.000 Nucleated RBC % (auto) 0.0 Smear Tech's Comments VERIFIED Smear Path Review SEE NOTE PT INR Sodium 135 Potassium 3.7 Chloride 102 Carbon Dioxide 24 Anion Gap 13 BUN 10 Creatinine 0.74 Estim Creat Clear Calc 59.8 Estimated GFR > 60 POC Glucose Random Glucose 145 H Calcium 8.9 Troponin I High Sens 12.4 COVID-19 (DESIREE) COVID-scoo mobility 08/17/21 08/17/21 08/17/21 03:24 03:24 03:33 WBC RBC Hgb Hct MCV MCH MCHC RDW Plt Count MPV Immature Gran % (Auto) Neut % (Auto) Lymph % (Auto) [place] % (Auto) Eos % (Auto) Baso % (Auto) Lymph # (Auto) [place] # (Auto) Eos # (Auto) Baso # (Auto) Abs Immat Gran (auto) Absolute Neuts (auto) Absolute Nucleated RBC Nucleated RBC % (auto) Smear Tech's Comments Smear Path Review PT 14.1 H INR 1.2 H Sodium Potassium Chloride Carbon Dioxide Anion Gap BUN Creatinine Estim Creat Clear Calc Estimated GFR POC Glucose 128 H Random Glucose Calcium Troponin I High Sens COVID-19 (DESIREE) Negative COVID-[address] Labs Com See Note 08/17/21 08/17/21 08/18/21 06:59 06:59 06:40 WBC 2.1 L 1.9 L RBC 3.96 L 3.49 L Hgb 10.9 L 9.7 L Hct 35.4 L 31.7 L MCV 89.4 90.8 MCH 27.5 27.8 MCHC 30.8 L 30.6 L RDW 19.6 H 19.5 H Plt Count 176 156 L MPV 8.9 L 9.0 L Immature Gran % (Auto) 1.4 H Neut % (Auto) 15.1 L Lymph % (Auto) 45.5 H [place] % (Auto) 36.6 H Eos % (Auto) 0.5 Baso % (Auto) 0.9 Lymph # (Auto) 1.0 L [place] # (Auto) 0.8 Eos # (Auto) 0.0 Baso # (Auto) 0.0 Abs Immat Gran (auto) 0.03 Absolute Neuts (auto) 0.3 L Absolute Nucleated RBC 0.000 0.000 Nucleated RBC % (auto) 0.0 0.0 Smear Tech's Comments Smear Path Review PT INR Sodium 135 Potassium 4.1 Chloride 104 Carbon Dioxide 27 Anion Gap 8 L BUN 10 Creatinine 0.68 Estim Creat Clear Calc 65.0 Estimated GFR > 60 POC Glucose Random Glucose 132 H Calcium 8.8 Troponin I High Sens COVID-19 (DESIREE) COVID-scoo mobility 08/18/21 08/18/21 06:40 07:47 WBC RBC Hgb Hct MCV MCH MCHC RDW Plt Count MPV Immature Gran % (Auto) Neut % (Auto) Lymph % (Auto) [place] % (Auto) Eos % (Auto) Baso % (Auto) Lymph # (Auto) [place] # (Auto) Eos # (Auto) Baso # (Auto) Abs Immat Gran (auto) Absolute Neuts (auto) Absolute Nucleated RBC Nucleated RBC % (auto) Smear Tech's Comments Smear Path Review PT INR Sodium 135 Potassium 4.1 Chloride 105 Carbon Dioxide 26 Anion Gap 8 L BUN 8 L Creatinine 0.62 Estim Creat Clear Calc 71.3 Estimated GFR > 60 POC Glucose 112 Random Glucose 121 H Calcium 8.4 Troponin I High Sens COVID-19 (DESIREE) COVID-19 Clin Com Airway Mallampati Class: III TM Dist: >3cm Neck ROM: Full Assessment and Plan Assessment Anesthesia Assessment: Anesthesia Plan Discussed and Chart Reviewed Final Anesthetic Review Family History of Problems with Anesthesia: No History of Problems with Anesthesia: No NPO: Yes ASA Class: III and Emergency Final Preanesthetic Review: Meds/Allgs Chart Reviewed, Consent Obtained/Reviewed and Anes Risks/Benef Reviewed Patient Risk: High Procedure Risk: Intermediate Anesthetic Plan Anesthetic Plan: GA Disposition: Inp. Admit - Standard Bed
--- NOTE | 2021-08-18 14:34 | PM.OP ---
Brief Operative Note Date of Service: 08/18/21 Pre-op diagnosis: right femoral neck fracture Post-op diagnosis: same Procedure: right hip hemiarthroplasty Implants: Cemented [place] accolade C #4 with +4/45 bipolar Surgeon: Kaushik Scott MD Anesthesia: GETA and local Was an [employer] Painter [employer] Grader used for this Procedure?: Yes [employer] Painter And Grader: Alma Delia Rodriguez Estimated blood loss (mL): 150 IV fluids (mL): 800 Pathology: other Condition: stable Disposition: PACU
--- NOTE | 2021-08-18 14:40 | MHC.SLORD ---
Speech Language Pathology Order Status: Patient is unavailable for dysphagia tx, as she is away at surgery. MIDDLE SCHOOL TEACHER will continue to follow.
--- NOTE | 2021-08-18 17:46 | MHC.SL.SWA ---
Speech Pathologist Impression: Risk of Aspiration Risk of Aspiration Due to: Medically Fragile Neurological Condition Weak Cough Dysphasia Diet Status: Upgrade Liquid Consistency and Strategies for Safe Swallow: Liquid Intake Recommendation: Pudding Thick Liquid Intake Strategies: Liquids by Teaspoon Only Solid Food Consistency: Dietary Recommendations: Pureed (NDD1) Additional Modifications to Solid Foods: Patient displayed overt s/s of aspiration with teaspoon sip of thin liquid. Patient tolerated 1/2 bites of pureed consistency. Difficulty with positioning d/t patient's complaints of pain. Patient must be positioned upright at 70-90 degree position in order to take PO. Recommend single consistency PUREED solids/ PUDDING thick liquids. Unable to assess tolerance of other consistencies d/t concerns for aspiration and patient's refusal of more trials. Patient to have 1:1 assistance with all PO intake (check oral cavity as needed), STRICT aspiration precautions, and close monitoring of tolerance. If patient displays any overt s/s of aspiration with these consistencies, HOLD PO. AWNING HANGER HELPER will continue to follow. Oral Medication Intake: Crushed with Puree Compensatory Strategies and Precautions to be Taken for Safe Swallow: Sitting Upright (90 deg) Liquids from Spoon Small Bites and Sips Rate of Ingestion Change Oral Check Supervision While Eating and Drinking for Safe Swallow: Total Assistance Swallowing Recommended Treatments: Compens. Strategy Educat. Recommendation for Speech: Inpatient Speech Therapy Athletic Coordinator Clinican/Clinical Fellow: No Supervisory Statement: I have reviewed and agree with the student/clinical fellow's documentation: N/A Speech Language Pathologist: Becky Coleman M.A., CCC-AWNING HANGER HELPER
--- NOTE | 2021-08-18 17:54 | MHC.SL.SWA ---
Speech Pathologist Impression: Risk of Aspiration Risk of Aspiration Due to: Medically Fragile Neurological Condition Weak Cough Dysphasia Diet Status: Upgrade Liquid Consistency and Strategies for Safe Swallow: Liquid Intake Recommendation: Pudding Thick Liquid Intake Strategies: Liquids by Teaspoon Only Solid Food Consistency: Dietary Recommendations: Pureed (NDD1) Additional Modifications to Solid Foods: Patient displayed overt s/s of aspiration with teaspoon sip of thin liquid. Patient took small (half-teaspoon) bites of pudding and tolerated pureed consistency with no overt s/s of aspiration and good oral clearance. Difficulty with positioning d/t patient's complaints of pain. Patient must be positioned upright at 70-90 degree position in order to take PO. Recommend single consistency PUREED solids/ PUDDING thick liquids. Unable to assess tolerance of other consistencies d/t concerns for aspiration and patient's refusal of more trials. Patient to have 1:1 assistance with all PO intake (check oral cavity as needed), STRICT aspiration precautions, and close monitoring of tolerance. If patient displays any overt s/s of aspiration with these consistencies, HOLD PO. PRIVATE INQUIRY AGENT will continue to follow. Oral Medication Intake: Crushed with Puree Compensatory Strategies and Precautions to be Taken for Safe Swallow: Sitting Upright (90 deg) Liquids from Spoon Small Bites and Sips Rate of Ingestion Change Oral Check Supervision While Eating and Drinking for Safe Swallow: Total Assistance Swallowing Recommended Treatments: Compens. Strategy Educat. Recommendation for Speech: Inpatient Speech Therapy Casino Cage Supervisor Clinican/Clinical Fellow: No Supervisory Statement: I have reviewed and agree with the student/clinical fellow's documentation: N/A Speech Language Pathologist: Becky Coleman M.A., CCC-PRIVATE INQUIRY AGENT
[2021-08-18] MEDS: ceFAZolin Sodium/Dextrose,Iso 2 GM/50 ML PIGGYBACK IV (20:47)
[2021-08-19] VITALS (11 sets, daily range): BP systolic 122–165; BP diastolic 59–80; PULSE 47–92; RESP 17–18; TEMP 35.9–37.3; O2SAT 94–100
[2021-08-19] MEDS: Dextrose 5 % and Lactated Ring 1,000 ML 80 ML IVCONT (05:56)
[2021-08-19 06:13] LABS: Hemoglobin 8.5 g/dl (12.0-16.0); PLT CLUMP 1; Red Cell Distribution Width 19.2 % (11.0-16.0)
[2021-08-19 06:14] LABS: Hematocrit 26.9 % (37.0-47.0); Mean Corpuscular HGB Conc 31.6 g/dl (31.0-35.0); Mean Corpuscular Volume 88.5 fL (80.0-98.0); Mean Platelet Volume 9.5 fL (9.4-12.3); Red Blood Count 3.04 X10*6/uL (4.20-5.50)
[2021-08-19 06:49] LABS: Anion Gap 11 (12-20); Blood Urea Nitrogen 9 mg/dL (9-16); Calcium 8.5 mg/dL (8.4-10.2); Carbon Dioxide 25 mmol/L (22-29); Chloride 103 mmol/L (96-108); Creatinine Clr Calc Pharmacy 73.7; Estimated Glomerular Filt Rate > 60; Glucose Random 111 mg/dL (60-115); Sodium 135 mmol/L (135-145)
[2021-08-19 07:17] LABS: Platelet Count 137 X10*3/uL (160-400); White Blood Count 2.1 X10*3/uL (4.8-10.8)
--- NOTE | 2021-08-19 11:25 | PM.EVENT ---
Event Note Date of Service: 08/19/21 Event Note: POD 1 s/p RT hip hemiarthroplasty subacute left acetabular fracture patient is to begin PT/OT today, wbat right hip but may struggle due to pain in the left due to acetabular fracture which may require pwb begin lvoenox today and resume eliquis 48 hrs post op rec 1 unit PRBCs per medicine follow h/h d/c pending PT eval and med clearance
--- NOTE | 2021-08-19 12:38 | P.PNIM_ITS ---
Subjective Subjective Date of Service: 08/19/21 Interval History: the patient was seen and evaluated this morning Laying in bed, feels comfortable overall Postop day 1 Today rating pureed diet Denies any fever, chills or chest pain No reported other overnight events. Review of Systems No fever, chills or weakness No chest pain, palpitation No shortness of breath or coughing No abdominal pain, nausea or vomiting No urinary symptoms No any rash or wounds Physical Exam Verdana 4l Vital Signs: Verdana 4d Verdana 4d Vital Signs: Verdana 4d Verdana 4Bd Last Vital Signs Verdana 4d Chef Broiler Or Fry New 4d Chef Broiler Or Fry New 4d Temp 98.5 F 08/19/21 11:00 Chef Broiler Or Fry New 4d Pulse 85 08/19/21 11:00 Chef Broiler Or Fry New 4d Resp 17 08/19/21 11:00 BP 140/60 H 08/19/21 11:00 Pulse Ox 94 08/19/21 11:55 BMI result Body Mass Index 20.8 Const: Other: Constitutional : Alert, oriented, not in distress Neck : Normal inspection, Supple Cardiovascular : RRR, S1 S2, no lower extremity edema Respiratory : Good bilateral air entry, no crackles, wheezes or rhonchi Gastrointestinal: soft, lax, Normal bowel sounds, Non tender Skin : Warm, Dry Ext: Right leg in dressing with no drainage or erythema Neurological : Alert & oriented x3, right-sided hemiparesis Objective Data Active Medications Acetaminophen (Acetaminophen 325 Mg Tablet) 650 mg PO Q6H PRN PRN Reason: Pain, Mild (Pain Scale 1-3) Aspirin (Aspirin Enteric Coated 81 Mg Tablet.Dr) 81 mg PO DAILY RICHARD Docusate Sodium (Docusate Sodium 100 Mg Capsule) 100 mg PO DAILY PRN PRN Reason: Constipation Enoxaparin Sodium (Enoxaparin Sodium 40 Mg/0.4 Ml Syringe) 40 mg SUBCUT Q24H RICHARD Hydromorphone HCl (Hydromorphone Hcl 1 Mg/Ml Syringe) 0.5 mg IVPUSH Q4H PRN; Protocol PRN Reason: Pain, Severe (Pain Scale 7-10) Last Admin: 08/17/21 20:13 Dose: 0.5 mg Documented by: PRUDENCIO Dextrose/Lactated Ringer's (D5lr) 1,000 mls @ 80 mls/hr IVCONT .[id number] RICHARD Last Admin: 08/19/21 11:16 Dose: Not Given Documented by: SRINIVASA Non-Admin Reason: IV Running Promethazine HCl 12.5 mg/ (Sodium Chloride) 50.5 mls @ 202 mls/hr IV ONCE PRN PRN Reason: Nausea and Vomiting Lactulose (Lactulose 20 Gm/30 Ml Solution) 10 gm PO BEDTIME PRN PRN Reason: constipation Methotrexate (Methotrexate Sodium 2.5 Mg Tablet) 7.5 mg PO [facility] [place] Sulfate (Morphine Sulfate 4 Mg/Ml Cartridge) 4 mg IVPUSH Q4H PRN; Protocol PRN Reason: Pain, Severe (Pain Scale 7-10) Last Admin: 08/17/21 18:36 Dose: 4 mg Documented by: MONICA Ondansetron HCl (Ondansetron Hcl 4 Mg/2 Ml Vial) 4 mg IVPUSH Q8H PRN PRN Reason: Nausea and Vomiting Last Admin: 08/17/21 07:03 Dose: 4 mg Documented by: KEELY Ondansetron HCl (Ondansetron Hcl 4 Mg/2 Ml Vial) 4 mg IVPUSH ONCE PRN PRN Reason: Nausea and Vomiting Pharmacy Consult (Consult Rx Perform Med Rec) 1 each MISCELLANE ONCE PRN PRN Reason: Consult order Sodium Chloride (0.9 % Sodium Chloride Flush 3 Ml Syringe) 3 ml IVFLUSH QSHIFT [facility] Last Admin: 08/19/21 07:20 Dose: Not Given Documented by: SRINIVASA Non-Admin Reason: IV Running Labs CBC & Chem 7: 08/19/21 05:58 08/19/21 05:58 Labs: Laboratory Results - last 24 hr 08/18/21 08/19/21 08/19/21 12:14 05:58 05:58 MCV 88.5 MCH 28.0 MCHC 31.6 RDW 19.2 H Plt Count 137 L MPV 9.5 Absolute Nucleated RBC 0.000 Nucleated RBC % (auto) 0.0 Anion Gap 11 L Estim Creat Clear Calc 73.7 Estimated GFR > 60 Random Glucose 111 Calcium 8.5 Blood Type O Positive Antibody Screen NEGATIVE Crossmatch See Detail Assessment and Plan (1) Closed hip fracture: Status: Acute (2) Acute on chronic anemia: Status: Acute Plan 76-year-old female with past medical history of CVA and right-sided hemiparesis presents to the hospital with significant pain as well as worsened slurred speech found to have high fracture # hip fractures/acetabulum fracture Pod 1 Orthopedic input appreciated To restart Eliquis once cleared by surgery pain control To do PT OT # acute on chronic anemia Hematocrit dropped below 30 , likely related to IV fluid and blood loss in surgery To transfuse a unit of blood per Cardiology recommendation Monitor H&H # history of CVA Patient around her baseline Neurology input appreciated, no acute findings # hypertension stable, resume home medications DVT prophylaxis SCDs Code status DNR DNI Quality Stroke Does the patient have a stroke diagnosis?: No VTE Prior VTE?: No VTE Risk Level:: Medical - moderate - high VTE Device Contraindication: N/A - Device Ordered VTE Drug Contraindication: Treatment Not Indicated
[2021-08-19] MEDS: Enoxaparin Sodium 40 MG/0.4 ML SYRINGE SUBCUT (13:10)
[2021-08-19] MEDS: 0.9 % Sodium Chloride Flush 3 ML SYRINGE IVFLUSH (14:26)
[2021-08-19] MEDS: HYDROmorphone HCl 1 MG/ML SYRINGE 0.5 MG IVPUSH (14:26)
--- NOTE | 2021-08-19 14:40 | HO.POSTANES ---
Post Anesthesia Evaluation Post Anesthesia Evaluation Vital Signs: Vital Signs Temp Pulse Resp BP Pulse Ox 08/19/21 14:26 18 08/19/21 13:05 99.1 F 92 18 165/80 H 08/19/21 12:00 99.1 F 92 18 165/80 H 94 08/19/21 11:55 94 08/19/21 11:00 98.5 F 85 17 140/60 H 08/19/21 10:41 98.8 F 88 17 134/59 L 08/19/21 07:47 98.5 F 71 18 128/60 96 08/19/21 03:51 97.1 F 72 18 136/64 96 Anesthesia: General Mental Status: Awake Pain Control: Satisfactory Nausea/Vomiting: None Hydration: Adequate Anesthesia-Related Issues: No Anes. Related Issues
[2021-08-20 00:32] VITALS: BP 149/77; PULSE 83; RESP 18; TEMP 37.1; O2SAT 95
[2021-08-20 04:00] VITALS: BP 158/76; PULSE 83; RESP 18; TEMP 36.4; O2SAT 97
[2021-08-20 05:44] LABS: Hematocrit 33.2 % (37.0-47.0); Hemoglobin 10.5 g/dl (12.0-16.0); Mean Corpuscular HGB Conc 31.6 g/dl (31.0-35.0); Mean Corpuscular Hemoglobin 27.9 pg (27.0-33.0); Mean Corpuscular Volume 88.1 fL (80.0-98.0); PLT CLUMP 1; Red Blood Count 3.77 X10*6/uL (4.20-5.50); Red Cell Distribution Width 18.4 % (11.0-16.0)
[2021-08-20 05:56] LABS: Anion Gap 12 (12-20); Blood Urea Nitrogen 10 mg/dL (9-16); Calcium 8.5 mg/dL (8.4-10.2); Carbon Dioxide 23 mmol/L (22-29); Chloride 103 mmol/L (96-108); Creatinine Clr Calc Pharmacy 77.6; Estimated Glomerular Filt Rate > 60; Glucose Random 80 mg/dL (60-115); Potassium 3.4 mmol/L (3.3-5.1); Sodium 135 mmol/L (135-145)
[2021-08-20 06:11] LABS: White Blood Count 4.3 X10*3/uL (4.8-10.8)
[2021-08-20] MEDS: 0.9 % Sodium Chloride Flush 3 ML SYRINGE IVFLUSH ×2 (06:33→08:24)
[2021-08-20 07:14] VITALS: BP 144/75; PULSE 79; RESP 18; TEMP 36.2; O2SAT 98
[2021-08-20] MEDS: Aspirin Enteric Coated 81 MG TABLET.DR PO (08:24)
[2021-08-20] MEDS: Apixaban 5 MG TABLET PO (10:01)
--- NOTE | 2021-08-20 10:15 | MHC.CM.PN ---
Addendum entered by Zenaida Partida 08/20/21 12:36: [facility] IS ABLE TO OFFER A BED. AVELINA CALLED PTS AT THE NUMBER PROVIDED DURING PREVIOUS CALL ([phone]) AND INFORMED HIM OF THE BED OFFER. AVELINA ALSO MET WITH PT WHO REPORTS BEING AGREEABLE PT WILL DC TO [facility] AT 1600 HOURS PENDING A NEW NEGATIVE COVID TEST BLS TRANSPORT ARRANGED Addendum entered by Zenaida Partida 08/20/21 11:06: CM RECEIVED A RETURN CALL FROM PTS . HE REPORTS HE HAS BEEN PROVIDING THE PTS CARE AT HOME HOWEVER IT HAS BEEN QUITE DIFFICULT AND HE IS WORRIED IT WILL BE MORE DIFFICULT NOW. HE REPORTS HE IS ALSO CONCERNED BECAUSE THE ORTHO MD TOLD HIM IT WOULD BE EASY FOR PTS HIP TO DISLOCATE AND HE DOES NOT KNOW HOW TO AVOID THAT HAPPENING. HE ALSO REPORTS HE HAS HIS OWN ISSUES AT THIS TIME AND FEELS THERE ARE TOO MANY BALLS IN THE AIR TO CARE FOR PT PROPERLY. HE REPORTS HE DOES WANT HER HOME SOON POSSIBLE HE IS JUST UNSURE HE CAN MANAGE IT AT THIS TIME. AUGUSTO REPORTS THE PT WAS RECENTLY AT [facility] AND LIKED IT THERE, HE FEELS SHE WOULD AGREE TO RETURNING. HE REPORTS HE DOES NOT WANT HER TO GO TO [facility] HE WANTS HER TO GET THERAPY SO SHE CAN GO HOME QUICKLY AUGUSTO REPORTS THE PT HAD THE J&J VACCINE ON OCTOBER 07, 2020 AND THE MODERNA BOOSTER ON JUNE 24, 2021. REFERRAL WAS SENT TO [facility], IF THEY DO NOT OFFER, AUGUSTO HAS REQUESTED THE REFERRAL BE EXPANDED TO INCLUDE KRISTINE. Original Note: AVELINA INFORMED PT COULD DC TODAY PT IS RECOMMENDING STR HOWEVER PT IS STATING SHE WOULD LIEK TO GO HOME CM ATTEMPTED TO CONTACT PTS , AUGUSTO [phone]) TO DISCUSS DC PLANNING FURTHER IT APPEARS HE ASSISTS WITH MUCH OF HER CARE. AUGUSTO DID NOT ANSWER, A MESSAGE WAS LEFT REQUESTING A RETURN CALL
[2021-08-20 12:00] VITALS: BP 116/60; PULSE 80; RESP 18; TEMP 36.3; O2SAT 97
--- NOTE | 2021-08-20 12:10 | P.PNOP_ITS ---
Subjective Subjective Date of Service: 08/20/21 Interval history: POD 2 s/p RT hip hemiarthroplasty patient resting in bed with hip abd pillow present but she was in position asking to sit up denies pain in the right hip, pain in left hip deneis sob, palpitations, chest pain Physical Exam Verdana 4l Vital Signs: Verdana 4d Verdana 4d Vital Signs: Verdana 4d Verdana 4Bd Last Vital Signs Verdana 4d Visitor Services Coordinator New 4d Visitor Services Coordinator New 4d Temp 97.2 F 08/20/21 07:14 Visitor Services Coordinator New 4d Pulse 79 08/20/21 07:14 Visitor Services Coordinator New 4d Resp 18 08/20/21 07:14 BP 144/75 H 08/20/21 07:14 Pulse Ox 98 08/20/21 07:14 BMI result Body Mass Index 20.8 Const: General: cooperative, healthy appearing and no acute distress Resp: Effort & Inspection: normal respiratory effort and able to speak in complete sentences Cardio: Rate: regular rate Peripheral pulses: Peripheral pulses 2+ throughout GI: Palpation (GI): Soft to palpation Skin: General skin exam: no rashes or lesions noted Extrem: Other: incision clean dry and intact. [place] intact. No erythema or effusion. Calf supple nontender. Neurovascularly intact. Procedures Date of Service Date of Service: 08/20/21 Progress Note: A&P Assessment and plan (1) History of hemiarthroplasty of right hip: Status: Acute Assessment and Plan: * Continue pain mgmnt * continue lovenox-resume eliquis 48 hrs post op * PT/OT rt hip gina with posterior precautions * --Left hip TTWB * Dispo planning-Pending PT eval, pain mgmnt (2) Left acetabular fracture: Status: Acute Assessment and Plan: TTWB with walker Fall Risk Details Current Medications: Current Medications Acetaminophen (Acetaminophen 325 Mg Tablet) 650 mg PO Q6H PRN PRN Reason: Pain, Mild (Pain Scale 1-3) Apixaban (Apixaban 5 Mg Tablet) 5 mg PO BID [facility] Last Admin: 08/20/21 10:01 Dose: 5 mg Documented by: Aspirin (Aspirin Enteric Coated 81 Mg Tablet.) 81 mg PO DAILY [facility] Last Admin: 08/20/21 08:24 Dose: 81 mg Documented by: Docusate Sodium (Docusate Sodium 100 Mg Capsule) 100 mg PO DAILY PRN PRN Reason: Constipation Hydromorphone HCl (Hydromorphone Hcl 1 Mg/Ml Syringe) 0.5 mg IVPUSH Q4H PRN; Protocol PRN Reason: Pain, Severe (Pain Scale 7-10) Last Admin: 08/19/21 14:26 Dose: 0.5 mg Documented by: Promethazine HCl 12.5 mg/ (Sodium Chloride) 50.5 mls @ 202 mls/hr IV ONCE PRN PRN Reason: Nausea and Vomiting Lactulose (Lactulose 20 Gm/30 Ml Solution) 10 gm PO BEDTIME PRN PRN Reason: constipation Methotrexate (Methotrexate Sodium 2.5 Mg Tablet) 7.5 mg PO [facility] Morphine Sulfate (Morphine Sulfate 4 Mg/Ml Cartridge) 4 mg IVPUSH Q4H PRN; Protocol PRN Reason: Pain, Severe (Pain Scale 7-10) Last Admin: 08/17/21 18:36 Dose: 4 mg Documented by: Ondansetron HCl (Ondansetron Hcl 4 Mg/2 Ml Vial) 4 mg IVPUSH Q8H PRN PRN Reason: Nausea and Vomiting Last Admin: 08/17/21 07:03 Dose: 4 mg Documented by: Ondansetron HCl (Ondansetron Hcl 4 Mg/2 Ml Vial) 4 mg IVPUSH ONCE PRN PRN Reason: Nausea and Vomiting Pharmacy Consult (Consult Rx Perform Med Rec) 1 each MISCELLANE ONCE PRN PRN Reason: Consult order Sodium Chloride (0.9 % Sodium Chloride Flush 3 Ml Syringe) 3 ml IVFLUSH [facility] Last Admin: 08/20/21 08:24 Dose: 3 ml Documented by: Time Spent With Patient Time: Total time spent is greater than 50% in coordination of care (as documented) at patient's floor/unit and/or counseling patient: Time with patient: less than 15 minutes Quality Stroke Does the patient have a stroke diagnosis?: No VTE Prior VTE?: No VTE Risk Level:: Medical - moderate - high VTE Device Contraindication: N/A - Device Ordered VTE Drug Contraindication: Treatment Not Indicated
--- NOTE | 2021-08-20 12:33 | P.DS_ITS ---
DS: Providers Provider Date of Service: 08/20/21 Date of admission: 08/17/21 05:27 Primary care physician: Unknown Physician Consults: 08/17/21 05:25 Consult to Orthopedics Routine Consulting Provider: Sandy Saxena Reason for consultation: hip fracture Has provider been notified: No 08/17/21 05:38 Consult to Neurology Routine Consulting Provider: [facility] Reason for consultation: TIA? Has provider been notified: No 08/17/21 15:08 Consult to Cardiology Routine Consulting Provider: Gilberto Patel Reason for consultation: Medical clearance for Hip surgery (requested by Orthopedics) DS: Diagnosis Discharge Diagnosis (1) Left acetabular fracture: Status: Acute (2) Acute on chronic anemia: Status: Acute (3) Preoperative cardiovascular examination: Status: Acute (4) Closed hip fracture: Status: Acute DS: Summary Hospital Course Hospital Course: Admission note HPI This is an unfortunate 76-year-old female with past medical history of CVA with significant right hemiparesis as well as aphasia, HTN, HLD, rheumatoid arthritis, in history of squamous cell carcinoma skin cancer presents to the hospital after her noticed worsening speech as well as her complaining and moaning of significant pain.? Patient does not remember what happened but she remembers coming to physical therapy around 1:00 p.m., going to lunch with her after physical therapy around 2:00 p.m..? Her is her soles quarry equipment operator and she is completely dependent on him.? According to the she has transport chair.? She was doing well all day until around 11:00 p.m. when he transported her from her bed to the bedside commode to relieve herself.? He put her back into bed.? At 2:00 a.m. he had fallen asleep watching hockey game, he heard her moaning, went to bed found her to have incoherent speech, when he tried to move her she started screaming of significant pain and therefore decided to bring her to the hospital.? The last thing the patient remember is her going to bed. Her adamantly denies that there has been any trauma or fall within the last 1 week.? He reports that she did very well as physical therapy and walked about 100 ft with a walker and physical therapy.? On arrival to the ED patient hemodynamically stable with no significant abnormal vitals Labs are significant for WBC count of 1.6 which is chronically low, hemoglobin of 11.2 which is around her baseline, PT of 14.1, INR of 1.2, sodium of 133, COVID-[address] angiogram showing no acute intracranial hemorrhage, area of white matter hypoattenuation again noted suggestive of infarcts of uncertain chronicity, no acute vascular abnormality. Hip CT shows comminuted acute left acetabular fracture without significant displacement.? Transverse fracture line extending anteriorly through the superior aspect of this to Bill a.? Subcapital right femoral neck fracture. Patient will be admitted for further management Hospital course The patient was admitted for evaluation of altered mentation. Images of the brain were negative for any acute findings. Patient mentation improved back to baseline while she was in the emergency. Meanwhile she was found to have hip fracture with no clear injuries reported. Evaluated by Neurology who recommended baby aspirin with no further evaluation as her symptoms were likely related to fracture. Seen by cardiology team for preop evaluation and she was clears to go to surgery. Evaluated by Orthopedic team who did hip fixation and she was evaluated by physical therapy team who recommended short-term rehab stay. Transfuse a unit of blood for a drop of hemogram it below 30 upon cardiac r ecommendations. Hematocrit improved above 30. Patient will be discharged on baby aspirin, oxycodone for pain control. To follow-up with orthopedic as outpatient. Time Spent with Patient Time attestation: Total time spent providing and/or coordinating discharge services: Discharge coordination time: Greater than 30 minutes Quality: Stroke Does the patient have a stroke diagnosis?: No Physical Exam Verdana 4l Vital Signs: Verdana 4d Verdana 4d Vital Signs: Verdana 4d Verdana 4Bd Last Vital Signs Verdana 4d Collar Folder Operator New 4d Collar Folder Operator New 4d Temp 97.3 F 08/20/21 12:00 Collar Folder Operator New 4d Pulse 80 08/20/21 12:00 Collar Folder Operator New 4d Resp 18 08/20/21 12:00 BP 116/60 08/20/21 12:00 Pulse Ox 97 08/20/21 12:00 BMI result Body Mass Index 20.8 Const: Other: Constitutional : Alert, oriented, not in distress Neck : Normal inspection, Supple Cardiovascular : RRR, S1 S2, no lower extremity edema Respiratory : Good bilateral air entry, no crackles, wheezes or rhonchi Gastrointestinal: soft, lax, Normal bowel sounds, Non tender Skin : Warm, Dry Ext: Right leg in dressing with no drainage or erythema Neurological : Alert & oriented x3, right-sided hemiparesis, speech is close to normal DS: Data Data Completed and Pending Pending studies at discharge: Pending at discharge 08/18/21 14:17 Surgical [PTH] Routine Labs on day of discharge: Laboratory Results - last 24 hr 08/18/21 08/20/21 08/20/21 12:14 04:46 04:46 WBC 4.3 L RBC 3.77 L D Hgb 10.5 L D Hct 33.2 L D MCV 88.1 MCH 27.9 MCHC 31.6 RDW 18.4 H Plt Count Not Reportable MPV Not Reportable Absolute Nucleated RBC 0.000 Nucleated RBC % (auto) 0.0 Sodium 135 Potassium 3.4 Chloride 103 Carbon Dioxide 23 Anion Gap 12 BUN 10 Creatinine 0.57 Estim Creat Clear Calc 77.6 Estimated GFR > 60 Random Glucose 80 Calcium 8.5 Crossmatch See Detail Discharge Plan Discharge Patient Disposition: Xfer SNF Discharge Diagnosis: Left hip fracture Acute on chronic anemia Referrals: [facility] [Other] - 1 Week Alma Delia Rodriguez PA-C [Physician Director [employer]] - 2 Weeks Physician,Hilaria J [Primary Care Provider] - 1 Week Discharge Medications: New oxycodone 5 mg tablet 5 mg PO Q8H PRN (Reason: pain (scale score 7-10)) Qty: 14 0RF aspirin 81 mg Tablet,Delayed Release (Dr/Ec) 81 mg PO DAILY Qty: 30 0RF Continued amlodipine 5 mg tablet 5 mg PO DAILY 90 Days Qty: 90 1RF folic acid 1 mg tablet 1 tab PO DAILY 0RF methotrexate sodium 2.5 mg tablet 3 tab PO TU 0RF lactulose 10 gram/15 mL solution 10 g PO BEDTIME PRN (Reason: constipation) Qty: 473 0RF Eliquis 5 mg tablet 5 mg PO BID Qty: 30 2RF Discharge Orders: Discharge Order (Routine); Ordered 08/20/21 Ordered By: Baron Aleman Diet: regular diet Activity on Discharge: Use cane or walker Stand Alone Forms: Patient Portal Discharge page Care Plan Goals: Restore function of joint Health Concerns: Read below Plan of Treatment: Physical Therapy Pain management To start baby aspirin per Neurology recommendations DVT prophylaxis Assessment: * Physical Therapy for Right gina hip arthroplasty: wbat on right -posterior precautions, gait training, ROM, strength * Left acetabular subacute fracture-ttwb with walker * Use abduction pillow when laying in bed * Limit stair climbing * No showering, no tub bath-keep dressing clean, dry and intact * No driving x6 weeks * Continue Lovenox tabs once a day x 4 weeks * Follow up with [facility] Orthopedics in 2 weeks Discharge Date/Time: 08/20/21 16:45
[2021-08-20 12:50] LABS: COVID-19 Test Negative (Negative); IDNOW Serial# 9DD0AD1C
--- NOTE | 2021-08-21 10:45 | W.PM.OPN ---
Operative Note Operative Note Date of Service: 08/21/21 Narrative: Date of Service: 08/18/21 Pre-op diagnosis: right femoral neck fracture Post-op diagnosis: same Procedure: right hip hemiarthroplasty Implants: Cemented Benezett accolade C #4 with +4/45 bipolar Surgeon: Kaushik Scott MD Anesthesia: GETA and local Was an Grinder Set Up Operator External used for this Procedure?: Yes Grinder Set Up Operator External: Alma Delia Rodriguez Estimated blood loss (mL): 150 IV fluids (mL): 800 Pathology: other Condition: stable Disposition: PACU Procedure in detail: Patient was brought to the operative room placed in the lateral decubitus position. All bony prominences were well padded and the was prepped and draped in standard sterile fashion. IV antibiotics per weight were administered and a time-out was called to identify proper site proper procedure proper surgeon. Radiographs were available and confirmed. I began by making a curvilinear incision over the posterolateral aspect of the greater trochanter. Dissection was taken down to the tensor fascia which was incised in line with the incision and a Charnley retractor was placed. The hip was internally rotated and the external rotators were identified. All vessels in the area were cauterized and a full-thickness capsular/external rotator layer was developed in a hockey-stick fashion starting just proximal to the piriformis. This layer was tagged and the displaced femoral neck fracture was identified. Clean-up cuts was performed while protecxtion the posterolateral soft tissues and the head was removed and measured (__45___ mm) on the back table. I then copiously irrigated the acetabulum and removed all bony fragments. Once this was done I used a cookie cutter to lateralize and a Charmanjeetey awl to identify the canal and then sequentially broached up to trial cemented #7. I then trialed with a standard head and a bipolar component matching the femoral head size. I was satisfied with the range of motion and stability and length. Therefore I removed all instrumentation and copiously irrigated. I used a foam bruch to dry the canal and then mixed 2 bags of papacos cement. Using statndard technique i cemented in a #3 127 deg stem. I then retrialed with a + 4 head. Given her pre operative mild right leg weakness I was satsfied that it was stable at the extremes of motion. My final bipolar componenets were then placed. I closed the capsular layer with FiberWire and then, after a three minute iodine soak , I performed a layered closure with mario on skin. The patient was placed in sterile dressing extubated brought to recovery room in stable condition there were no known complications.
== END 2021-08-20 16:45 | disposition skilled nursing facility (03) | DRG 956 ==
LOC: HO.ED 04:56 → HO.EDOVER 06:33 → HO.S3 08-18 16:30
PROVIDERS: Orthopaedic Surgery; Admitting Provider Internal Medicine; Emergency Provider Emergency Medicine; Visit Provider Student in an Organized Health Care Education/Training Program
PROC: 0SRR0J9 Replacement of Right Hip Joint, Femoral Surface with Synthetic Substitute, Cemented, Open Approach (ICD-10-PCS; CPT 27125; principal; 2021-08-18 12:30)
DX: S72.011A Unspecified intracapsular fracture of right femur, initial encounter for closed fracture (principal); S32.465A Nondisplaced associated transverse-posterior fracture of left acetabulum, initial encounter for closed fracture; I69.851 Hemiplegia and hemiparesis following other cerebrovascular disease affecting right dominant side; D62 Acute posthemorrhagic anemia; M06.9 Rheumatoid arthritis, unspecified; X58.XXXA Exposure to other specified factors, initial encounter; I10 Essential (primary) hypertension; E78.5 Hyperlipidemia, unspecified; Z20.822 Contact with and (suspected) exposure to COVID-19; Z79.899 Other long term (current) drug therapy; Z66 Do not resuscitate
CPT/HCPCS: 36415; 70450; 70496; 70498; 72170; 73502; 73700; 80048; 82947; 84484; 85025; 85027; 85610; 86850; 86900; 86901; 86923; 87635; 88305; 88311; 92526; 92610; 93005; 96374; 96376; 97163; 99285; C1713; C1776; J0690; J1100; J1170; J1650; J1885; J2270; J2370; J2405; J3010; P9016

== ENCOUNTER 2021-09-07 07:31 | Outpatient (REF) | payer MEDICARE, OTHER, SELFPAY ==
--- NOTE | ~2021-09-07 | XR_ITS ---
EXAMINATION: RIGHT HIP AND AP PELVIS. CLINICAL INFORMATION: Hip pain. COMPARISON: None TECHNIQUE: AP pelvis one view. Right hip 2 views. FINDINGS: AP pelvis: There is a total right hip prosthesis in satisfactory alignment. There is a left intramedullary femoral bronwyn and femoral nail stabilizing old healed femoral neck fracture. There is moderate hypertrophic bony changes along the lesser trochanter. The pelvic bones are unremarkable. There is mild loss of bilateral hip joint space with diffuse osteopenia. SI joints are symmetrical and normal. There is a infrarenal IVC filter in place. XR/XR pelvis 1-2V IMPRESSION: Total right hip prosthesis in satisfactory alignment. There is a left intramedullary femoral bronwyn and nail for an old healed femoral neck fracture. Diffuse osteopenia. No acute fracture seen.
--- NOTE | ~2021-09-07 | XR_ITS ---
EXAMINATION: RIGHT HIP AND AP PELVIS. CLINICAL INFORMATION: Hip pain. COMPARISON: None TECHNIQUE: AP pelvis one view. Right hip 2 views. FINDINGS: AP pelvis: There is a total right hip prosthesis in satisfactory alignment. There is a left intramedullary femoral bronwyn and femoral nail stabilizing old healed femoral neck fracture. There is moderate hypertrophic bony changes along the lesser trochanter. The pelvic bones are unremarkable. There is mild loss of bilateral hip joint space with diffuse osteopenia. SI joints are symmetrical and normal. There is a infrarenal IVC filter in place. XR/XR hip RT min 2V IMPRESSION: Total right hip prosthesis in satisfactory alignment. There is a left intramedullary femoral bronwyn and nail for an old healed femoral neck fracture. Diffuse osteopenia. No acute fracture seen.
== END 2021-09-07 07:32 | disposition home or self-care (01) ==
LOC: HO.HOSX 07:31
PROVIDERS: Visit Provider Physician Assistant
DX: Z47.1 Aftercare following joint replacement surgery (principal); Z96.641 Presence of right artificial hip joint
CPT/HCPCS: 72170; 73502; 99212

== ENCOUNTER 2021-10-06 07:50 | Outpatient (RCR) | payer MEDICARE, OTHER, SELFPAY | END 2021-12-07 14:55 | disposition home or self-care (01) | LOC: HO.WCC 07:50 | PROVIDERS: PCP Internal Medicine; Visit Provider Physician Assistant | DX: L89.623 Pressure ulcer of left heel, stage 3 (principal); R60.9 Edema, unspecified; I87.2 Venous insufficiency (chronic) (peripheral); I10 Essential (primary) hypertension; I69.351 Hemiplegia and hemiparesis following cerebral infarction affecting right dominant side | CPT/HCPCS: 11042; 15275; 99212; Q4101; Q4160 ==

== ENCOUNTER 2021-11-13 11:24 | Outpatient (REF) | payer MEDICARE, OTHER, SELFPAY ==
--- NOTE | ~2021-11-13 | XR_ITS ---
EXAMINATION: XR CHEST CLINICAL INFORMATION: R09.89 - Other specified symptoms and signs COMPARISON: CT abdomen 05/12/2021, chest radiographs 08/08/2020, 08/01/2019 TECHNIQUE: Upright AP and lateral views of the chest are obtained. FINDINGS: There is subsegmental disc atelectasis right lateral base. There is no lobar or segmental airspace consolidation or groundglass opacity. No effusion. Posterior costophrenic sulci are clear. The vascularity is normal. Heart is within upper limits of normal size. The hilar and mediastinal contours are normal. There are several thoracic vertebral compressions, additional sites and increased from prior exam. There is old healed fracture proximal left humerus. XR/XR chest 2V IMPRESSION: -Disc atelectasis right lateral base. Lungs otherwise clear. -Several thoracic vertebral body compressions, change from prior exam 2020.
== END 2021-11-13 11:25 | disposition home or self-care (01) ==
LOC: HO.XRAY 11:24
PROVIDERS: PCP Internal Medicine; Visit Provider Nurse Practitioner Family
DX: R09.89 Other specified symptoms and signs involving the circulatory and respiratory systems (principal)
CPT/HCPCS: 71046

== ENCOUNTER 2021-11-24 12:48 | Outpatient (REF) | payer MEDICARE, OTHER, SELFPAY ==
--- NOTE | ~2021-11-24 | MM_ITS ---
EXAMINATION: BONE DENSITOMETRY CLINICAL INDICATION: Collapsed vertebra, not elsewhere classified. COMPARISON: This is the patient's baseline examination. TECHNIQUE: Using a [employer] DXA System (software version: 13.1) manufactured by [employer], dual-energy x-ray absorptiometry was performed of the lumbar spine and right forearm radius 33%. Patient has had bilateral hip fractures with hardware precluding bone density measurement. The images are of good technical quality. Summary results are attached. FINDINGS: AP SPINE L1-L4: BMD 0.845 g/cm2, Z-score -0.3, T-score -2.8, osteoporosis. RIGHT FOREARM RADIUS 33%: BMD 0.388 g/cm2, Z-score -3.4, T-score -5.6, osteoporosis. IDENTIFIED RISK FACTORS: Rheumatoid arthritis, osteoporosis, height loss, low body weight, history of fracture (adult), menopause. HISTORY OF FRACTURE: Spine, hip, wrist. Other. MEDICATIONS: Calcium or multivitamin. MM/XR DEXA axial skeleton IMPRESSION: 1. DIAGNOSIS: Osteoporosis based on the lowest T-score value of -5.6 in the forearm radius 33% applying World Health Organization criteria. 2. 10-YEAR FRACTURE RISK PREDICTION, FRAX: Not performed in this patient without a femoral neck BMD measurement. In addition, FRAX calculation should only be performed on patients in the osteopenia bone density category. 3. Treatment Recommendations: NOF guidelines recommend consideration for treatment in postmenopausal women and men age 50 and older presenting with the following: -A hip or vertebral (clinical or morphometric) fracture. -T-score less than or equal to -2.5 at the femoral neck or spine after appropriate evaluation to exclude secondary causes. -Low bone mass at the hip or spine and a 10-year fracture probability by FRAX of greater than or equal to 3% for hip fracture or greater than or equal to 20% for major osteoporotic fracture based on the [place] adapted WHO algorithm. 4. Other Recommendations: All treatment decisions require clinical judgment and consideration of individual patient factors, including patient preferences, comorbidities, previous drug use, risk factors not captured in the FRAX model (e.g. frailty, falls, vitamin D deficiency, increased bone turnover, interval significant decline in bone density) and possible under or overestimation of fracture risk by FRAX. Additional medical evaluation for secondary cause of low bone mineral density may be appropriate. FUTURE SCAN RECOMMENDATION: People with diagnosed cases of osteoporosis or at high risk for fracture should have regular bone mineral density tests. For patients eligible for Medicare, routine testing is allowed once every 2 years. The testing frequency can be increased to one year for patients who have rapidly progressing disease, those who are receiving or discontinuing medical therapy to restore bone mass, or have additional risk factors.
== END 2021-11-24 12:49 | disposition home or self-care (01) ==
LOC: HO.MAMMO 12:48
PROVIDERS: PCP Nurse Practitioner Family; Visit Provider Nurse Practitioner Family
DX: Z13.820 Encounter for screening for osteoporosis (principal); M48.54XA Collapsed vertebra, not elsewhere classified, thoracic region, initial encounter for fracture; M81.0 Age-related osteoporosis without current pathological fracture; Z78.0 Asymptomatic menopausal state
CPT/HCPCS: 77080

== ENCOUNTER → 2022-03-08 15:34 | Outpatient (BNVA) | payer MEDICARE, OTHER, SELFPAY | PROVIDERS: PCP Internal Medicine; Visit Provider Internal Medicine Endocrinology, Diabetes & Metabolism | DX: M81.0 Age-related osteoporosis without current pathological fracture (principal) | CPT/HCPCS: 99202 ==

== ENCOUNTER 2022-03-14 13:28 | Outpatient (REF) | payer MEDICARE, OTHER, SELFPAY ==
[2022-03-14 15:49] LABS: Vitamin D 25-OH Total 53.4 ng/mL (>30)
[2022-03-17 19:52] LABS: Prot Elec - Albumin 3.4 g/dL (3.8-4.8); Prot Elec - Alpha1 0.4 g/dL (0.2-0.3); Prot Elec - Alpha2 0.6 g/dL (0.5-0.9); Prot Elec - Beta 1 0.5 g/dL (0.4-0.6); Prot Elec - Beta 2 0.5 g/dL (0.2-0.5); Prot Elec - Gamma 2.5 g/dL (0.8-1.7); Prot Elec - Total Protein 7.9 g/dL (6.1-8.1)
== END 2022-03-14 13:29 | disposition home or self-care (01) ==
LOC: HO.LAB 13:28
PROVIDERS: PCP Internal Medicine; Visit Provider Internal Medicine Endocrinology, Diabetes & Metabolism
DX: M81.0 Age-related osteoporosis without current pathological fracture (principal)
CPT/HCPCS: 36415; 82306; 84165

== ENCOUNTER 2022-03-16 09:30 | Outpatient (REF) | payer MEDICARE, OTHER, SELFPAY ==
[2022-03-16 11:10] LABS: Creatinine, mg/dL 31.22
[2022-03-16 13:45] LABS: Creatinine, 24Hr Urine 0.4 G/Day (1.0-2.0); Total Volume 24 Hour Urine 1200 mL
[2022-03-17 16:57] LABS: Calcium, 24 Hr Urine 157 mg/24 h; Calcium/Creatinine Ratio 397 mg/g creat (30-275)
== END 2022-03-16 09:31 | disposition home or self-care (01) ==
LOC: HO.LNP 09:30
PROVIDERS: Visit Provider Internal Medicine Endocrinology, Diabetes & Metabolism
DX: M81.0 Age-related osteoporosis without current pathological fracture (principal)
CPT/HCPCS: 82340; 82570; 86335

== ENCOUNTER → 2022-04-26 10:36 | Outpatient (BNVA) | payer MEDICARE, OTHER, SELFPAY | PROVIDERS: PCP Internal Medicine; Visit Provider Internal Medicine Endocrinology, Diabetes & Metabolism | DX: M81.0 Age-related osteoporosis without current pathological fracture (principal) | CPT/HCPCS: 99212 ==

== ENCOUNTER 2022-09-21 07:13 | Outpatient (REF) | payer MEDICARE, OTHER, SELFPAY ==
[2022-09-21 10:46] LABS: Alanine Aminotransferase 15 U/L (0-31); Albumin Level 3.1 g/dL (3.5-5.0); Alkaline Phosphatase 64 U/L (39-117); Anion Gap 13 (12-20); Aspartate Amino Transferase 23 U/L (5-31); Bilirubin Total 0.4 mg/dL (0.0-1.0); Blood Urea Nitrogen 23 mg/dL (9-16); Calcium 8.8 mg/dL (8.4-10.2); Carbon Dioxide 28 mmol/L (22-29); Chloride 103 mmol/L (96-108); Cholesterol 135 mg/dL; Estimated Glomerular Filt Rate > 60; Glucose Fasting 70 mg/dL (60-99); HDL Cholesterol 34 mg/dL; LDL Cholesterol Calculated 91 mg/dl; Potassium 4.3 mmol/L (3.3-5.1); Sodium 140 mmol/L (135-145); Total Protein 7.6 g/dL (6.5-8.0); Triglycerides 53 mg/dL
== END 2022-09-21 07:14 | disposition home or self-care (01) ==
LOC: HO.LHD 07:13
PROVIDERS: Visit Provider Internal Medicine
DX: I10 Essential (primary) hypertension (principal); E78.5 Hyperlipidemia, unspecified; R56.9 Unspecified convulsions
CPT/HCPCS: 36415; 80053; 80061

== ENCOUNTER → 2024-01-21 09:34 | Outpatient (RCR) | payer MEDICARE, OTHER, SELFPAY ==
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
== END | disposition home or self-care (01) ==
LOC: HO.SH 07-25 12:48
PROVIDERS: Visit Provider Internal Medicine
DX: I63.512 Cerebral infarction due to unspecified occlusion or stenosis of left middle cerebral artery (principal); R47.81 Slurred speech
CPT/HCPCS: 92523